=== PATIENT | male | born 1930 | race Caucasian/White ===

== ENCOUNTER 2017-03-10 17:08 | Inpatient (IN) | payer MEDICARE ==
[~2017-03-10] VITALS: Ht 182.9 cm; Wt 72.3 kg
[~2017-03-10 17:08] MED LIST: AMIO200T PO; CALC0.25 PO; LEVO75TA3 PO; NIAC500T5 PO; SIMV20TA PO; SPIR50TA PO; WARF4TAB51 PO
[2017-03-10 17:18] VITALS: BP 94/51; PULSE 69; RESP 20; TEMP 98.3; O2SAT 86
[2017-03-10 17:20] VITALS: RESP 20; O2SAT 97
--- NOTE | 2017-03-10 18:02 | PD ---
HPI Chief Complaint: Fall Time Seen by Provider: 17:19 Travel History International Travel<30 days: No Contact w/Intl Traveler<30days: No Traveled to known affect area: No History of Present Illness HPI 86-year-old male that presents to the ED for evaluation of right hip pain. Patient apparently had a trip and fall over a chair at a barn in [place] where he was at a tour of the area and landed on his right hip. Per patient he denies hitting his head or lost consciousness. No other injuries reported. Patient was not able to get up on its own he has a lot of pain with range of motion of the right hip. Patient felt like he was going to stand up he was going to pass out from the pain. Denies any prior injuries. Takes Coumadin for atrial fib. No back pain or neck pain. No arm pain. No leg pain. Denies any other injuries. The patient his pain if she doesn't move is 4 out of 10 when he moves his 8 out of 10. He cannot put any weight or not even flex it without pain. No numbness, tilling, weakness. No other injuries reported. Last ate around noon. No prior injuries to this area. 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 ) Hypertension: Yes Tetanus Vaccination: > 5 Years Influenza Vaccination: No Past Surgical History Cardiac Surgery: Yes (PACEMAKER) Social History Alcohol Use: No Tobacco Use: No Substance Use: No Allergies-Medications (Allergen,Severity, Reaction): Coded Allergies: No Known Allergies (Unverified , 03/10/17) Reported Meds & Prescriptions Reported Meds & Active Scripts Active Reported Warfarin 2 Mg Tab 2 Mg PO DAILY@1600 Spironolactone 50 Mg Tab 50 Mg PO DAILY Simvastatin 20 Mg Tab 20 Mg PO HS Niacin 500 Mg Tab 500 Mg PO DAILY Levothyroxine (Levothyroxine Sodium) 75 Mcg Tab 75 Mcg PO DAILY Calcitriol 0.25 Mcg Cap 0.25 Mcg PO DAILY Amiodarone (Amiodarone HCl) 200 Mg Tab 100 Mg PO DAILY Review of Systems Except as stated in HPI: all other systems reviewed are Neg Physical Exam Narrative GENERAL: SKIN: Warm and dry. HEAD: Atraumatic. Normocephalic. EYES: Pupils equal and round. No scleral icterus. No injection or drainage. ENT: No nasal bleeding or discharge. Mucous membranes pink and moist. Tongue is midline. No uvula deviation. NECK: Trachea midline. No JVD. CARDIOVASCULAR: Regular rate and rhythm. No murmurs, S3, S4. RESPIRATORY: No accessory muscle use. Clear to auscultation. Breath sounds equal bilaterally. GASTROINTESTINAL: Abdomen soft, non-tender, nondistended. Hepatic and splenic margins not palpable. MUSCULOSKELETAL: Extremities without clubbing, cyanosis, or edema. No obvious deformities. Full range of motion of the upper and lower extremities bilaterally. Patient does have reproducible pain with range of motion of the right hip especially with flexion and extension. 2+ pulses bilaterally especially in the lower extremities. No knee, ankle, toe of foot pain or defomrity noted. Full ROM of the upper extremities. No bruising noted on the abdomen which is soft and nontender. No obvious bony deformity noted. No lumbar , thoracic, cervical spine tenderness to palpation. NEUROLOGICAL: Awake and alert. No obvious cranial nerve deficits. Motor grossly within normal limits. Five out of 5 muscle strength in the arms and legs. Normal speech. PSYCHIATRIC: Appropriate mood and affect; insight and judgment normal. Data Data Last Documented VS Vital Signs Date Time Temp Pulse Resp B/P (MAP) Pulse Ox O2 Delivery O2 Flow Rate FiO2 03/10/17 19:06 69 20 116/56 (76) 97 Nasal Cannula 3.00 03/10/17 17:18 98.3 Orders Orders Hip, Uni(Ap&Lat) W Ap Pelvis (03/10/17 17:22) Ice/Cold Pack (03/10/17 17:22) Complete Blood Count With Diff (03/10/17 17:37) Basic Metabolic Panel (Bmp) (03/10/17 17:37) Prothrombin Time / Inr (Pt) (03/10/17 17:37) Act Partial Throm Time (Ptt) (03/10/17 17:37) Ct Hip W/O Contrast (03/10/17 ) ^ Lab Follow Up (03/10/17 20:34) Fresh Frozen Plasma (Ffp) (03/10/17 20:34) Type And Screen (03/10/17 20:34) Admit Order (Ed Use Only) (03/10/17 20:36) Labs Laboratory Tests Test 03/10/17 18:20 White Blood Count 11.6 TH/MM3 Red Blood Count 3.22 MIL/MM3 Hemoglobin 10.7 GM/DL Hematocrit 32.1 % Mean Corpuscular Volume 99.7 FL Mean Corpuscular Hemoglobin 33.3 PG Mean Corpuscular Hemoglobin Concent 33.4 % Red Cell Distribution Width 15.6 % Platelet Count 202 TH/MM3 Mean Platelet Volume 8.4 FL Neutrophils (%) (Auto) 81.5 % Lymphocytes (%) (Auto) 4.9 % Monocytes (%) (Auto) 12.8 % Eosinophils (%) (Auto) 0.6 % Basophils (%) (Auto) 0.2 % Neutrophils # (Auto) 9.5 TH/MM3 Lymphocytes # (Auto) 0.6 TH/MM3 Monocytes # (Auto) 1.5 TH/MM3 Eosinophils # (Auto) 0.1 TH/MM3 Basophils # (Auto) 0.0 TH/MM3 CBC Comment DIFF FINAL Differential Comment Prothrombin Time 42.8 SEC Prothromb Time International Ratio 3.7 RATIO Activated Partial Thromboplast Time 37.3 SEC Blood Urea Nitrogen 34 MG/DL Creatinine 1.84 MG/DL Random Glucose 143 MG/DL Calcium Level 8.6 MG/DL Sodium Level 139 MEQ/L Potassium Level 4.9 MEQ/L Chloride Level 101 MEQ/L Carbon Dioxide Level 33.4 MEQ/L Anion Gap 5 MEQ/L Estimat Glomerular Filtration Rate 35 ML/MIN MDM Medical Decision Making Medical Screen Exam Complete: Yes Emergency Medical Condition: Yes Medical Record Reviewed: Yes Interpretation(s) Last Impressions Hip and Pelvis X-Ray 03/10/17 1722 Signed Impressions: Service Date/Time: Friday, March 10, 2017 17:42 - CONCLUSION: Negative for acute fracture, if one is suspected CT scan may be of benefit. Issa Burger MD FACR CT shows acetabulum fracture and hematoma. CBC & BMP Diagram 03/10/17 18:20 Calcium Level 8.6 Differential Diagnosis Hip fracture versus bruise versus contusion versus inability to ambulate versus trip and fall Narrative Course 86-year-old male that presents to the ED for evaluation of right hip injury. Patient was properly examined and was found to have signs and symptoms concerning for hip fracture. X-rays were ordered. Labs were ordered as per my attendings recommendations. X-ray showed no fracture. Patient still in a lot of pain with movement. concerned for hidden fracture. CT ordered and showed displaced and comminuted acetabulum fracture with hematoma displacing the bladder to the left. Labs shows elevated INR of 3.7. Case discussed with Dr Cadena who evaluated the patient with me and recommends Trauma and ortho surgeon consultations. Dr Grayson consulted who agrees to admit to his service. Wants FFP but no [facility]. Spoke with Dr Downing who agrees patient might need surgery. Wants 10 pounds of bucks traction and consult placed to Dr Jorgensen. This was discussed with family, patient, as well as my attending who agree with plan. patient was admitted. Diagnosis Primary Impression: Acetabulum fracture, right Qualified Codes: S32.411A - Displaced fracture of anterior wall of right acetabulum, initial encounter for closed fracture Additional Impressions: Anticoagulated on Coumadin Pelvic hematoma, male Admitting Information Admitting Physician Requests: Admit Andrew Moreno Mar 10, 2017 18:02
--- NOTE | 2017-03-10 18:05 | RADRPT ---
EXAM DATE/TIME: 03/10/2017 17:42 [facility] COMPARISON: No previous studies available for comparison. INDICATIONS : Patient fell this morning and complains of right hip pain. MEDICAL HISTORY : None. SURGICAL HISTORY : None. ENCOUNTER: Initial ACUITY: 1 day PAIN SCORE: 8/10 LOCATION: Right Hip FINDINGS: Degenerative changes are present about the right hip without fracture. Extensive vascular calcificat ions are noted. Old deformity is seen of the right superior and inferior pubic ramus suggests an old fracture. CONCLUSION: Negative for acute fracture, if one is suspected CT scan may be of benefit. Issa Burger MD FACR on March 10, 2017 at 18:03 Board Certified Radiologist. This report was verified electronically.
[2017-03-10 18:38] LABS: AUTOMATED NEUTROPHIL # 9.5 TH/MM3 (1.8-7.7); BASOPHIL % 0.2 % (0.0-2.0); EOSINOPHIL # 0.1 TH/MM3 (0-0.4); EOSINOPHIL % 0.6 % (0.0-4.0); HEMATOCRIT 32.1 % (39.0-51.0); HEMO FLAGS DIFF FINAL; LYMPH % 4.9 % (9.0-44.0); LYMPHOCYTE # 0.6 TH/MM3 (1.0-4.8); MEAN CELL VOLUME 99.7 FL (80.0-100.0); MEAN CORPUSCULAR HEMOGLOBIN 33.3 PG (27.0-34.0); MEAN CORPUSCULAR HGB CONC 33.4 % (32.0-36.0); MONO % 12.8 % (0.0-8.0); NEUT % 81.5 % (16.0-70.0); PLATELET COUNT 202 TH/MM3 (150-450); RED BLOOD COUNT 3.22 MIL/MM3 (4.50-5.90); RED CELL DISTRIBUTION WIDTH 15.6 % (11.6-17.2); WHITE BLOOD COUNT 11.6 TH/MM3 (4.0-11.0)
[2017-03-10 18:49] LABS: BICARBONATE 33.4 MEQ/L (21.0-32.0); POTASSIUM 4.9 MEQ/L (3.5-5.1)
[2017-03-10 18:53] LABS: APTT (PATIENT) 37.3 SEC (24.3-30.1); INTERNATIONAL NORMALIZED RATIO 3.7 RATIO; PROTHROMBIN TIME - PATIENT 42.8 SEC (9.8-11.6)
[2017-03-10 19:06] VITALS: BP 116/56; PULSE 69; RESP 20; O2SAT 97
--- NOTE | 2017-03-10 20:27 | RADRPT ---
EXAM DATE/TIME: 03/10/2017 19:29 [facility] COMPARISON: No previous studies available for comparison. INDICATIONS : Trauma, fall. Evaluate right hip fracture. RADIATION DOSE: 28.15 CTDIvol (mGy) MEDICAL HISTORY : None SURGICAL HISTORY : None. ENCOUNTER: Initial ACUITY: 1 day PAIN SCALE: 5/10 LOCATION: Right hip. TECHNIQUE: Volumetric scanning of the hip was performed. Using automated exposure control and adjustment of the mA and/or kV according to patient size, radiation dose was kept as low as reasonably achievable to o btain optimal diagnostic quality images. DICOM format image data is available electronically for rev iew and comparison. FINDINGS: There is evidence of an acute comminuted displaced right acetabular fracture within involvement of th e anterior and posterior columns. There is also involvement of the superior acetabulum. The right pr oximal femur is intact without fracture. There is also evidence of acute fractures involving the rig ht superior and inferior pubic rami. Hematoma is noted within the right pelvic sidewall and displace s the urinary bladder to the left. Uncomplicated colonic diverticulosis is noted. Bilateral inguina l hernias are noted containing only fat and fluid. Severe spinal stenoses are noted within the lower lumbar spine. The prostate is enlarged and contains central calcifications. There is a tiny umbili adalgisa hernia containing only fat. CONCLUSION: 1. Acute displaced comminuted right acetabular fracture involving the anterior and posterior columns and superior acetabulum. 2. Acute fractures involving the right superior and inferior pubic rami. 3. Hematoma along the right pelvic sidewall. 4. Severe multilevel spinal stenoses within the lumbar spine. 5. Bilateral inguinal and umbilical hernias containing only fat and some fluid. 6. Uncomplicated colonic diverticulosis. 7. Enlarged prostate with central calcifications. Jovan Castillo MD on March 10, 2017 at 20:08 Board Certified Radiologist. This report was verified electronically.
--- NOTE | 2017-03-10 20:54 | PD ---
Physical Exam Date Seen by Provider: Mar 10, 2017 Time Seen by Provider: 20:44 Narrative GENERAL: Well-developed well-nourished thin male in no acute distress no respiratory distress; GCS 15 SKIN: Warm and dry. HEAD: Normocephalic. Atraumatic. EYES: No scleral icterus. No injection or drainage. NECK: Supple, trachea midline. No JVD or lymphadenopathy. No midline tenderness to direct palpation along the cervical spine. CARDIOVASCULAR: Regular rate and rhythm without murmurs, gallops, or rubs. RESPIRATORY: Breath sounds equal bilaterally. No accessory muscle use. GASTROINTESTINAL: Abdomen soft, non-tender, nondistended. MUSCULOSKELETAL: No cyanosis, or edema. No shortening or external rotation of the right lower extremity however unable to maneuver right lower extremity at hip secondary to marked pain; pelvic rock deferred: Bilateral radial pulses 2++ = to palpation and dorsalis pedis pulses 1+ to palpation and confirmed with Doppler. BACK: Nontender without obvious deformity. No CVA tenderness. Data Data Last Documented VS Vital Signs Date Time Temp Pulse Resp B/P (MAP) Pulse Ox O2 Delivery O2 Flow Rate FiO2 03/10/17 19:06 69 20 116/56 (76) 97 Nasal Cannula 3.00 03/10/17 17:18 98.3 Orders Orders Hip, Uni(Ap&Lat) W Ap Pelvis (03/10/17 17:22) Ice/Cold Pack (03/10/17 17:22) Complete Blood Count With Diff (03/10/17 17:37) Basic Metabolic Panel (Bmp) (03/10/17 17:37) Prothrombin Time / Inr (Pt) (03/10/17 17:37) Act Partial Throm Time (Ptt) (03/10/17 17:37) Ct Hip W/O Contrast (03/10/17 ) ^ Lab Follow Up (03/10/17 20:34) Fresh Frozen Plasma (Ffp) (03/10/17 20:34) Type And Screen (03/10/17 20:34) Admit Order (Ed Use Only) (03/10/17 20:36) Labs Laboratory Tests Test 03/10/17 18:20 White Blood Count 11.6 TH/MM3 Red Blood Count 3.22 MIL/MM3 Hemoglobin 10.7 GM/DL Hematocrit 32.1 % Mean Corpuscular Volume 99.7 FL Mean Corpuscular Hemoglobin 33.3 PG Mean Corpuscular Hemoglobin Concent 33.4 % Red Cell Distribution Width 15.6 % Platelet Count 202 TH/MM3 Mean Platelet Volume 8.4 FL Neutrophils (%) (Auto) 81.5 % Lymphocytes (%) (Auto) 4.9 % Monocytes (%) (Auto) 12.8 % Eosinophils (%) (Auto) 0.6 % Basophils (%) (Auto) 0.2 % Neutrophils # (Auto) 9.5 TH/MM3 Lymphocytes # (Auto) 0.6 TH/MM3 Monocytes # (Auto) 1.5 TH/MM3 Eosinophils # (Auto) 0.1 TH/MM3 Basophils # (Auto) 0.0 TH/MM3 CBC Comment DIFF FINAL Differential Comment Prothrombin Time 42.8 SEC Prothromb Time International Ratio 3.7 RATIO Activated Partial Thromboplast Time 37.3 SEC Blood Urea Nitrogen 34 MG/DL Creatinine 1.84 MG/DL Random Glucose 143 MG/DL Calcium Level 8.6 MG/DL Sodium Level 139 MEQ/L Potassium Level 4.9 MEQ/L Chloride Level 101 MEQ/L Carbon Dioxide Level 33.4 MEQ/L Anion Gap 5 MEQ/L Estimat Glomerular Filtration Rate 35 ML/MIN [facility] Medical Record Reviewed: Yes Supervised Visit with REMY: Yes (I have seen and examined the patient myself and am in agreement with the advanced physician provider assessment and exam and plan of treatment. Patient has had plain imaging that does not reveal obvious bony abnormalities however CT imaging does confirm a comminuted acetabular fracture as well as right superior ramus and inferior ramus fracture with adjacent hematoma causing some pressure on to the bladder. FFP has been ordered. Patient's case discussed with on-call trauma surgeon who recommends only administration of FFP no vitamin K or K [facility]ra at this time per discussion w/ Dr Hassan and Gary Moreno PA-C. Call was also placed to division toll wire chief orthopedist) Interpretation(s) INR: 3.7 CT pelvis: CONCLUSION: 1. Acute displaced comminuted right acetabular fracture involving the anterior and posterior columns and superior acetabulum. 2. Acute fractures involving the right superior and inferior pubic rami. 3. Hematoma along the right pelvic sidewall. 4. Severe multilevel spinal stenoses within the lumbar spine. 5. Bilateral inguinal and umbilical hernias containing only fat and some fluid. 6. Uncomplicated colonic diverticulosis. 7. Enlarged prostate with central calcifications. Jovan Castillo MD on March 10, 2017 at 20:08 Last Impressions Hip and Pelvis X-Ray 03/10/17 1722 Signed Impressions: Service Date/Time: Friday, March 10, 2017 17:42 - CONCLUSION: Negative for acute fracture, if one is suspected CT scan may be of benefit. Issa Burger MD FACR Differential Diagnosis Contusion hip fracture pelvic fracture coagulopathy Narrative Course Please refer to my supervised note with a REMY FFP ordered stat cxr, ekg ordered Dr Grayson in to see patient; aware FFP not yet administered as BBK assessing status --no prior BBK hx here CT thorax w/ iv contrast and CT abd/pelvis with IV contrast ordered @ 23:05 FFP at bedside to be administered; stat H/H ordered @ 23:30Trauma surgeon updated regarding H/H and CT imaging results Physician Communication Physician Communication Dr Grayson and Dr Downing contacted by Gary Moreno PA-C; discussed with Dr Grayson at the bedside Diagnosis Primary Impression: Acetabulum fracture, right Qualified Codes: S32.411A - Displaced fracture of anterior wall of right acetabulum, initial encounter for closed fracture Additional Impressions: Pelvic hematoma, male Anticoagulated on Coumadin Admitting Information Admitting Physician Requests: Admit Mamie Cadena MD Mar 10, 2017 20:54
[2017-03-10 21:06] VITALS: BP 101/58; PULSE 69; RESP 16; O2SAT 97
[2017-03-10] MEDS ORDERED: Post-op Orders (for Pharmacy) MISC XX ONE (22:00)
[2017-03-10] MEDS ORDERED: ONDANSETRON HCL 4 MG/2 ML VIAL IV PRN (22:00)
[2017-03-10] MEDS ORDERED: SODIUM CHLORIDE 0.9% FLUSH 10 ML FLUSH IV FLUSH PRN (22:00)
[2017-03-10] MEDS ORDERED: SODIUM CHLOR 0.9% 1000 ML INJ 1,000 ML IV SCH (22:00)
[2017-03-10] MEDS ORDERED: MORPHINE SULFATE 4 MG/ML INJ IV PUSH PRN (22:00)
[2017-03-10] MEDS ORDERED: NALOXONE HCL 0.4 MG/ML AMP IV PUSH PRN (22:00)
[2017-03-10] MEDS ORDERED: oxyCODONE/ACETAMINOPHEN 5 MG/325 MG TAB PO PRN (22:00)
[2017-03-10] MEDS ORDERED: PILL SPLITTER OTHER PRN (22:15)
[2017-03-10] MEDS ORDERED: IODIXANOL 320 MG/ML 10 ML VIAL (for Rad CT) IV ONE (22:36)
[2017-03-10 22:38] LABS: HEMATOCRIT 26.5 % (39.0-51.0); REVIEW FLAG FINAL
--- NOTE | 2017-03-10 22:49 | RADRPT ---
EXAM DATE/TIME: 03/10/2017 21:54 [facility] COMPARISON: CHEST SINGLE AP, April 27, 2016, 18:28. INDICATIONS : Short of breath. MEDICAL HISTORY : None. SURGICAL HISTORY : Pacemaker. ENCOUNTER: Subsequent ACUITY: 1 day PAIN SCORE: 0/10 LOCATION: Bilateral chest FINDINGS: There is elevation of the left hemidiaphragm which is stable. The heart is stable. Left subclavian d ual lead pacemaker has its tips in the right atrium and right ventricle. The pulmonary vascular jaclyn patricia is normal. The lungs are clear. CONCLUSION: 1. Elevation of the left hemidiaphragm. 2. No pulmonary vascular congestion or focal pulmonary infiltrate. Jovan Castillo MD on March 10, 2017 at 22:40 Board Certified Radiologist. This report was verified electronically.
--- NOTE | 2017-03-10 23:00 | PD.CONS ---
HPI Service Critical Care Medicine Consult Requested By Dr. Grayson Reason for Consult Critical care management Primary Care Physician Axel Patton MD History of Present Illness 86 yo WM with PMH of atrial fibrillation on chronic anticoagulation with warfarin, hyperlipidemia, hypothyroidism, pacemaker, chronic kidney disease stage III, COPD who presents to [facility] emergency department complaining of R hip pain after a fall. He states that he was taking a tour of a horse farm in [place], [place] and he stood up and tripped over his chair and landed on the concrete floor of a barn. He denies head trauma or loss of consciousness. CT of the right hip demonstrated comminuted displaced right anterior and posterior acetabular fracture. There were also fractures of the right superior and inferior pubic rami. A hematoma was present along the right pelvic sidewall displacing the bladder. His INR is 3.7. Patient states that he had his INR checked on Thursday 03/08 and it was above 3. He states that he completed a course of penicillin about 2-1/2 weeks ago after he experienced a URI with COPD exacerbation and that this affected his INR. He took a reduced dose of warfarin on Wednesday. Two units of FFP have been ordered and the first unit is infusing currently. Plt count is 202. Hgb is 8.7 (prior was 10.7 4 hours ago). He is in sinus rhythm in 60s with BP 101/58. He is alert and interactive. States hip pain only occurs with movement and that his pain is currently adequately controlled. Denies CP, SOB, Headache, back pain, neck pain. Remainder of ROS negative. He is being admitted to trauma service, Dr. Grayson who has consulted [facility]. ED physician has discussed case with orthopaedics who recommended [place] traction which has been ordered. Review of Systems Musculoskeletal: COMPLAINS OF: Joint pain Past Family Social History Allergies: Coded Allergies: digoxin (Verified Allergy, Unknown, Drowsiness, 03/11/17) Past Medical History Atrial fibrillation on chronic anti-coagulation with warfarin Hyperlipidemia COPD Hard of hearing Hypothyroidism Chronic kidney disease stage III Past Surgical History Biotronik Pacemaker placement New Right atrial lead was placed by Dr. Kelley 04/27/16 Reported Medications Warfarin 2 mg by mouth daily Amiodarone 100 g by mouth daily Simvastatin 20 mill grams by mouth daily at bedtime Niacin 500 mg by mouth daily Spironolactone 50 mg by mouth daily Levothyroxin 7500 mg by mouth daily Calcitriol 0.25 mill grams by mouth daily Family History Mother had diabetes Father at age 94 ruptured aortic aneurysm Social History He is a lifetime nonsmoker Denies alcohol or illicit drug use Retired Physical Exam Vital Signs Vital Signs Date Time Temp Pulse Resp B/P (MAP) Pulse Ox O2 Delivery O2 Flow Rate FiO2 03/10/17 21:06 69 16 101/58 (72) 97 Nasal Cannula 2.00 03/10/17 19:06 69 20 116/56 (76) 97 Nasal Cannula 3.00 03/10/17 17:20 20 97 Nasal Cannula 3.00 03/10/17 17:18 98.3 69 20 94/51 (65) 86 Physical Exam GENERAL: Pleasant, alert, talkative man who is laying in ED [facility]. SKIN: Warm and dry, well perfused. HEAD: Atraumatic. Normocephalic. EYES: Pupils equal and round, 6 mm and sluggishly reactive. No scleral icterus. No injection or drainage. ENT: No nasal bleeding or discharge. Mucous membranes pink and moist. NECK: Trachea midline. No JVD. No midline tenderness, step-off, deformity CARDIOVASCULAR: Regular rate and rhythm, sinus rhythm on monitor with rate in the 60s. No murmurs rubs or gallops. RESPIRATORY: Breathing comfortably with No accessory muscle use. Scant bilateral extremities. GASTROINTESTINAL: Abdomen soft, non-tender, nondistended. Bowel sounds present. MUSCULOSKELETAL: Extremities without clubbing, cyanosis, or edema. Right leg held in external rotation. Mild 1+ R ankle edema. Moves toes bilaterally. NEUROLOGICAL: Awake and alert. No obvious cranial nerve deficits. Normal speech. Oriented to person, year, circumstance. Moving upper extremities spontaneously. Moves toes bilaterally. Laboratory Laboratory Tests Test 03/10/17 18:20 03/10/17 22:30 White Blood Count 11.6 Red Blood Count 3.22 Hemoglobin 10.7 8.7 Hematocrit 32.1 26.5 Mean Corpuscular Volume 99.7 Mean Corpuscular Hemoglobin 33.3 Mean Corpuscular Hemoglobin Concent 33.4 Red Cell Distribution Width 15.6 Platelet Count 202 Mean Platelet Volume 8.4 Neutrophils (%) (Auto) 81.5 Lymphocytes (%) (Auto) 4.9 Monocytes (%) (Auto) 12.8 Eosinophils (%) (Auto) 0.6 Basophils (%) (Auto) 0.2 Neutrophils # (Auto) 9.5 Lymphocytes # (Auto) 0.6 Monocytes # (Auto) 1.5 Eosinophils # (Auto) 0.1 Basophils # (Auto) 0.0 CBC Comment DIFF FINAL Differential Comment Prothrombin Time 42.8 Prothromb Time International Ratio 3.7 Activated Partial Thromboplast Time 37.3 Blood Urea Nitrogen 34 Creatinine 1.84 Random Glucose 143 Calcium Level 8.6 Sodium Level 139 Potassium Level 4.9 Chloride Level 101 Carbon Dioxide Level 33.4 Anion Gap 5 Estimat Glomerular Filtration Rate 35 Result Diagram: 03/10/17222903/10/17 1820 Assessment and Plan Problem List: (1) Acetabulum fracture, right ICD Code: S32.401A - Unspecified fracture of right acetabulum, initial encounter for closed fracture Status: Acute (2) Pelvic hematoma, male ICD Code: N50.1 - Vascular disorders of male genital organs Status: Acute (3) Anticoagulated on Coumadin ICD Code: Z51.81 - Encounter for therapeutic drug level monitoring; Z79.01 - penitentiary (current) use of anticoagulants Status: Chronic (4) Hard of hearing ICD Code: H91.90 - Unspecified hearing loss, unspecified ear (5) Hypothyroid ICD Code: E03.9 - Hypothyroidism, unspecified Status: Chronic (6) CKD (chronic kidney disease) stage 3, GFR 30-59 ml/min ICD Code: N18.3 - Chronic kidney disease, stage 3 (moderate) Status: Chronic (7) Pacemaker ICD Code: Z95.0 - Presence of cardiac pacemaker (8) Afib ICD Code: I48.91 - Unspecified atrial fibrillation Status: Resolved (9) Fall ICD Code: W19.XXXA - Unspecified fall, initial encounter Status: Acute Assessment and Plan NEURO: Pain secondary to acute fracture Hard of hearing Scoliosis thoracic spine Fall Noted carotid ultrasound has been ordered per trauma surgery. Will follow-up. Percocet 5/325 one by mouth every 4 hours when necessary pain Morphine 2 mg IV every 3 hours when necessary breakthrough pain ORTHO: Comminuted right acetabular fracture Right superior and inferior pubic ramus fracture Ten pounds [place] traction per orthopedics recommendation. Orthopedic surgery consulted. Dr. Sherman to see in am. RESP: Reported history of COPD Acute nondisplaced right seventh rib fracture Elevated left hemidiaphragm Lifetime nonsmoker. Appears may be chronic CO2 retainer. Albuterol every 2 hours as needed for wheezing CT chest - acute nondisplaced fracture anterolateral aspect right seventh rib. Cardiomegaly and coronary calcifications present. Bilateral fibrotic pulmonary scarring. CV: Atrial fibrillation. He is currently in sinus rhythm. Biotronik Pacemaker in situ Hyperlipidemia On chronic anticoagulation with warfarin. We'll hold warfarin as per below. Continue pravastatin 40 mg by mouth daily at bedtime, niacin 500 mg by mouth daily. Continue amiodarone 100 mg by mouth daily. Continue spironolactone 50 mg by mouth daily Follow-up 2-D echo. GI: Nothing by mouth CT abdomen and pelvis - no solid organ injury. Right iliac is muscle hematoma extending to right pelvic sidewall. Bilateral renal cysts. 1.3 x 1.8 cm right adrenal nodule, indeterminate. Umbilical and bilateral inguinal hernias. FEN/RENAL: Chronic kidney disease stage III Enlarged prostate Bilateral renal cysts 1.3 x 1.8 cm right adrenal nodule. Insert Fischer. Monitor intake and output. Monitor electrolyte. Replace electrolytes as clinically indicated. Check mag and phos. Continue calcitriol 0.25 mcg po daily. ID: Monitor for signs and symptoms of infection HEME: Warfarin-induced coagulopathy Patient is chronically in a coagulated with warfarin for A fib with target INR 2 -3. . Dose was reduced to 1 mg on Wednesday due to elevated outpatient INR. We' ll hold warfarin. ORdere previously placed for 2 units FFP and repeat INR is ordered. Will give ffp as needed to target pre-op INR </= 1.5. Normal platelet count ENDO: Hypothyroidism Continue levothyroxine 75 mg by mouth daily Mild hyperglycemia may be secondary to stress. Will monitor and order low-dose insulin sliding scale if indicated PROPH: Will use SCD for DVT prophylaxis. Is currently anticoagulated with INR greater than 3 which will provide DVT prophylaxis currently. Protonix 40 mg by mouth daily for stress ulcer prophylaxis. ACCESS: Peripheral IV providing adequate access at this time Level 2 consult Problem Qualifiers (1) Acetabulum fracture, right: Qualified Codes: S32.411A - Displaced fracture of anterior wall of right acetabulum, initial encounter for closed fracture (2) Hard of hearing: Qualified Codes: H91.90 - Unspecified hearing loss, unspecified ear (3) Hypothyroid: Qualified Codes: E03.9 - Hypothyroidism, unspecified (4) Afib: Qualified Codes: I48.0 - Paroxysmal atrial fibrillation (5) Fall: Qualified Codes: W19.XXXA - Unspecified fall, initial encounter Evette Black MD Mar 10, 2017 23:00
--- NOTE | 2017-03-10 23:03 | MH ---
cc: [facility] DATE OF ADMISSION 03/10/[address] Grayson, trauma surgery and vascular surgery. REASON FOR ADMISSION Right comminuted acetabular fracture, intrapelvic retroperitoneal hematoma with displacement of the bladder, pubic rami fractures, a-fib, hypocoagulable iatrogenic state, intrapelvic bleed. HISTORY OF PRESENT DISEASE This 86-year-old gentleman was in [place], apparently in a barn and fell over a chair on his right hip. There was a concrete floor in the barn. The patient did not lose consciousness. Denies hitting head and this was witnessed. The patient could not get up and he was put by family in a car, driven down here because he lives in [place]. He came to emergency room around 5:00 p.m. this evening. The patient had pain 8/10. Cannot flex hip, cannot extend it, cannot rotate it. The patient was worked up, was found to have comminuted fracture of the right acetabulum, intraperitoneal hematoma, I was asked to admit the patient. PAST MEDICAL HISTORY Past medical history is that of coronary artery disease, chronic a-fib, ischemic cardiomyopathy with pacemaker placement and replacement, COPD, hypertension, hypothyroidism. PAST SURGICAL HISTORY Is only of pacemaker placement. The patient does not drink. Does not smoke. 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 MEDICATIONS Include: 1. Coumadin. 2. Amiodarone. 3. Synthroid. 4. Simvastatin. 5. Spironolactone. PHYSICAL EXAMINATION GENERAL: Physical examination reveals pleasant 86-year-old male, awake, alert, oriented x3, answering questions completely appropriately, all the way with it. HEENT: Normocephalic. No trauma to the head. Pupils equally reactive. Extraocular muscles are intact. No hemotympanum. No Grace sign or raccoon's eyes. NECK: Neck is supple. Bilateral carotid pulses and faint bilateral carotid bruits. CHEST: Bilateral breath sounds decreased over both lung pillai consistent with advanced degree of COPD. The patient has obvious signs of pulmonary cachexia with loss of chest wall musculature. HEART: Irregular rhythm. The patient is in controlled a-fib about 80 beats per minute. On arrival, initial pressure was 90 mmHg systolic but this apparently improved and as I'm seeing the patient he is normotensive. ABDOMEN: Soft. No rebound or guarding. No masses. The patient is fairly thin. PELVIS: The pelvis appears to be stable. The patient is tender over the pubis and is also quite tender over the right hip area. EXTREMITIES: The patient has palpable femoral pulses, palpable popliteal, dorsalis pedis and posterior tibial pulses bilateral. Capillary refill is normal. Normal brachial, ulnar pulses. No signs of acute vascular deficit. NEUROLOGIC: Exam is normal. CII-XII are normal. Pacheco coma scale is 15. Motorically the patient is fully intact with limitations of the right leg where any movement of the leg causes significant amount of pain. IMPRESSION/RECOMMENDATIONS Patient with comminuted right acetabular fracture involving the anterior and posterior column of the acetabulum and pubic fracture on the right. He has a moderate size intrapelvic retroperitoneal hematoma which is related obviously to the bleeding from the either obturator branch of the external iliac artery or the external iliac branch of the obturator artery, or both which meet back behind the acetabulum. This should be contained bleeding. I have discussed this with the PA and ordered 2 units of FFP at 8:30. As I am dictating this H&P at 10 o'clock the patient still has not received FFP but appears to be stable. The patient will be admitted to ICU. Orthopedics has been consulted. The patient should have a traction placed on this and I guess that is coming. The patient will be observed in the ICU considering that the complications of this could be significant, ranging from continuous intraperitoneal bleeding, recurrent intraperitoneal bleeding or other injuries. In addition, the patient will get an EKG, cardiac echo, carotid ultrasound because I really do not know whether he went syncopal or not, just because he states he did not I am not sure and in addition the patient needs complete abdomen CAT scan because I can see only lower pelvis on this film. Other than that further ICU care per clinical indices. Critical care time 40 minutes. Chelly PATEL /10:25 PM /10:35 PM DUSTIN
[2017-03-10 23:14] VITALS: PULSE 69; RESP 16; TEMP 97.7; O2SAT 99
--- NOTE | 2017-03-10 23:14 | RADRPT ---
EXAM DATE/TIME: 03/10/2017 22:14 [facility] COMPARISON: No previous studies available for comparison. INDICATIONS : Trauma. Fall. Evaluate for intraperitoneal hemorrhage. IV CONTRAST: 75 cc Visipaque (iodixanol) IV ; Cumulative dose for multiple exams. ORAL CONTRAST: No oral contrast ingested. RADIATION DOSE: 9.41 CTDIvol (mGy) ; Combined studies - Thorax/Abdomen/Pelvis MEDICAL HISTORY : Cardiovascular disease. Hypertension. Chronic obstructive pulmonary disease. SURGICAL HISTORY : Pacemaker. ENCOUNTER: Initial ACUITY: 1 day PAIN SCALE: 5/10 LOCATION: Right pelvis abdomen TECHNIQUE: Volumetric scanning of the abdomen and pelvis was performed. Using automated exposure control and ad justment of the mA and/or kV according to patient size, radiation dose was kept as low as reasonably achievable to obtain optimal diagnostic quality images. DICOM format image data is available electro nically for review and comparison. FINDINGS: There is no evidence of trauma to the liver or spleen. A tiny left pleural effusion is noted. The branch creas is unremarkable. There is a large hematoma involving the right iliacus musculature as well as h ematoma involving the right pelvic sidewall musculature related to the extensive comminuted right dulce tabular and pubic rami fractures. There is displacement of the urinary bladder to the left. The prost ate is prominent and contains central calcification. Uncomplicated colonic diverticulosis is noted. B ilateral inguinal hernias containing only fat and some fluid is noted. Umbilical hernia containing on ly fat is noted. Multilevel severe spinal stenosis is noted within the lumbar spine. Multiple bilater al renal cysts are noted. No renal trauma is noted. There is a 1.3 x 1.8 cm right adrenal nodule whic h is indeterminate. The abdominal aorta is calcified but is not aneurysmally dilated. The inferior ve na cava is normal. Cardiomegaly is noted. CONCLUSION: No evidence of trauma to the intra-abdominal organs. Right iliacus musculature hematoma which extends into the right pelvic sidewall and displaces the ureter bladder to the left. Enlarged prostate with central calcifications. Tiny left pleural effusion. Umbilical and bilateral in guinal hernias containing no bowel loops. Bilateral renal cysts. 1.3 x 1.8 cm right adrenal nodule wh ich is indeterminate. Acute displaced comminuted right acetabular fracture as well as right superior and inferior to rami fractures. Severe multilevel spinal stenoses within lumbar spine. Degenerative c hanges and scoliosis of the lumbar spine. Cardiomegaly. Jovan Castillo MD on March 10, 2017 at 23:01 Board Certified Radiologist. This report was verified electronically.
--- NOTE | 2017-03-10 23:20 | RADRPT ---
EXAM DATE/TIME: 03/10/2017 22:14 [facility] COMPARISON: No previous studies available for comparison. INDICATIONS : Trauma. Fall. Right sided rib pain. IV CONTRAST: 75 cc Visipaque (iodixanol) IV ; Cumulative dose for multiple exams. RADIATION DOSE: 9.41 CTDIvol (mGy) ; Combined studies - Thorax/Abdomen/Pelvis MEDICAL HISTORY : Cerebrovascular disease. Hypertension. Chronic obstructive pulmonary disease. SURGICAL HISTORY : Pacemaker. ENCOUNTER: Initial ACUITY: 1 day PAIN SCALE: 5/10 LOCATION: Right chest TECHNIQUE: Volumetric scanning of the chest was performed. Using automated exposure control and adjustment of t he mA and/or kV according to patient size, radiation dose was kept as low as reasonably achievable to obtain optimal diagnostic quality images. DICOM format image data is available electronically for review and comparison. Follow-up recommendations for detected pulmonary nodules are based at a minimum on nodule size and pa tient risk factors according to Fleischner Society Guidelines. FINDINGS: LUNGS: There is no consolidation or pneumothorax. No concerning pulmonary nodule is visualized. Scattered f ibrotic scarring is noted bilaterally. PLEURA: Tiny pleural effusion is noted on the left. MEDIASTINUM: The heart and great vessels demonstrate no acute abnormality. There is no mediastinal or hilar lymph adenopathy. Cardiomegaly is noted. Coronary artery calcifications are noted. AXILLAE: Within normal limits. No lymphadenopathy. SKELETAL: There is an acute nondisplaced fracture involving the anterolateral aspect of the right seventh rib. Degenerative changes and scoliosis of the thoracic spine are noted. MISCELLANEOUS: The visualized upper abdominal organs demonstrate no acute abnormality. There is elevation of the lef t hemidiaphragm. CONCLUSION: Acute nondisplaced fracture involving the anterolateral aspect of the right seventh rib. Cardiomegaly and coronary artery calcifications. Scattered fibrotic scarring bilaterally. Tiny left pleural effus ion. Degenerative changes and scoliosis of the thoracic spine. Elevation of the left hemidiaphragm. Jovan Castillo MD on March 10, 2017 at 23:13 Board Certified Radiologist. This report was verified electronically.
[2017-03-11] VITALS (19 sets, daily range): BP systolic 103–156; BP diastolic 52–71; PULSE 80–95; RESP 16–28; TEMP 97–98; O2SAT 95–99
--- NOTE | 2017-03-11 00:51 | RADRPT ---
EXAM DATE/TIME: 03/10/2017 23:35 [facility] COMPARISON: No previous studies available for comparison. INDICATIONS : Syncope. MEDICAL HISTORY : Hypertension. COPD. Cardiac disorder. SURGICAL HISTORY : Pacemaker. ENCOUNTER: Initial ACUITY: 1 day PAIN SCORE: 0/10 LOCATION: Bilateral neck PEAK SYSTOLIC VELOCITIES (cm/sec): ICA/CCA RATIO: Right: 1.0 Left: 1.1 ICA: Right: 101 Left: 94 CCA: Right: 102 Left: 84 ECA: Right: 95 Left: 57 VERTEBRAL: Right: 47 antegrade Left: 61 antegrade Elevated flow velocities and ICA/CCA ratios have been found to correlate with increased degrees of vessel stenosis, calculated as percentage of diameter relative to a normal segment of distal ICA/CCA FINDINGS: RIGHT CAROTID: Scattered calcified plaque throughout the common carotid artery and proximal ICA with less than 50% s tenosis by Constantino scale analysis.. The waveforms are within normal limits. LEFT CAROTID: Scattered calcified plaque throughout the common carotid artery and proximal ICA with less than 50% s tenosis by Constantino scale analysis.. The waveforms are within normal limits. VERTEBRAL ARTERIES: Antegrade flow is seen in both vertebral arteries. MISCELLANEOUS: None. CONCLUSION: 1. Diffuse calcified plaque with less than 50% stenosis involving each ICA. 2. Antegrade flow involving both vertebral arteries. Bandar Santana Jr., MD on March 11, 2017 at 0:46 Board Certified Radiologist. This report was verified electronically.
[2017-03-11] MEDS ORDERED: RESP: ALBUTEROL 2.5 MG/3 ML NEB (PRN) NEB (01:00)
[2017-03-11] MEDS: PANTOPRAZOLE SOD 40 MG DELAYED RELEASE TAB PO SCH ×2 (01:49→21:40)
[2017-03-11 02:16] LABS: MAGNESIUM 2.1 MG/DL (1.5-2.5)
[2017-03-11 03:34] LABS: HEMATOCRIT 24.4 % (39.0-51.0); REVIEW FLAG FINAL
[2017-03-11 03:47] LABS: INTERNATIONAL NORMALIZED RATIO 1.7 RATIO; PROTHROMBIN TIME - PATIENT 18.9 SEC (9.8-11.6)
[2017-03-11] MEDS ORDERED: FURO1TAB60 PO (04:41)
[2017-03-11] MEDS ORDERED: SODIUM CHLOR 0.9% 250 ML INJ 250 ML IV ONE ×2 (05:00→06:00)
[2017-03-11] MEDS: LEVOTHYROXINE SODIUM 75 MCG TAB PO SCH (05:26)
[2017-03-11 05:42] LABS: AUTOMATED NEUTROPHIL # 5.8 TH/MM3 (1.8-7.7); BASOPHIL % 0.4 % (0.0-2.0); EOSINOPHIL # 0.1 TH/MM3 (0-0.4); EOSINOPHIL % 0.8 % (0.0-4.0); HEMATOCRIT 23.6 % (39.0-51.0); HEMO FLAGS DIFF FINAL; LYMPH % 11.2 % (9.0-44.0); LYMPHOCYTE # 0.9 TH/MM3 (1.0-4.8); MEAN CELL VOLUME 96.4 FL (80.0-100.0); MEAN CORPUSCULAR HEMOGLOBIN 32.4 PG (27.0-34.0); MEAN CORPUSCULAR HGB CONC 33.6 % (32.0-36.0); MONO % 18.3 % (0.0-8.0); NEUT % 69.3 % (16.0-70.0); PLATELET COUNT 152 TH/MM3 (150-450); RED BLOOD COUNT 2.44 MIL/MM3 (4.50-5.90); RED CELL DISTRIBUTION WIDTH 15.6 % (11.6-17.2); WHITE BLOOD COUNT 8.3 TH/MM3 (4.0-11.0)
[2017-03-11] MEDS ORDERED: FUROSEMIDE 20 MG/2 ML VIAL IV PUSH ONE (06:00)
[2017-03-11 06:07] LABS: ALT (GPT) 28 U/L (12-78); ANION GAP 5 MEQ/L (5-15); AST (GOT) 30 U/L (15-37); BLOOD UREA NITROGEN 35 MG/DL (7-18); CHLORIDE 101 MEQ/L (98-107); GLOMERULAR FILTRATION RATE 35 ML/MIN (>89); POTASSIUM 4.5 MEQ/L (3.5-5.1); SODIUM (NA) 140 MEQ/L (136-145)
[2017-03-11 06:10] LABS: ALKALINE PHOSPHATASE 80 U/L (45-117); TOTAL BILIRUBIN ADULT 1.2 MG/DL (0.2-1.0)
[2017-03-11] MEDS ORDERED: FAMOTIDINE 20 MG TAB PO SCH (09:00)
[2017-03-11] MEDS: NIACIN 500 MG EXTENDED RELEASE TAB PO SCH ×2 (09:00→09:40)
[2017-03-11] MEDS: SODIUM CHLORIDE 0.9% FLUSH 10 ML FLUSH IV FLUSH SCH ×2 (09:15→21:00)
[2017-03-11] MEDS: SPIRONOLACTONE 50 MG TAB PO SCH (09:39)
[2017-03-11] MEDS: CALCITRIOL 0.25 MCG CAP PO SCH (09:40)
[2017-03-11] MEDS: AMIODARONE 200 MG TAB PO SCH (09:40)
[2017-03-11] MEDS: DOCUSATE SODIUM 50 MG/SENNA 8.6 MG TAB PO SCH ×2 (09:40→21:39)
--- NOTE | 2017-03-11 09:55 | HHI.CCPN ---
Subjective Remarks/Hospital Course 86 yo WM with PMH of atrial fibrillation on chronic anticoagulation with warfarin, hyperlipidemia, hypothyroidism, pacemaker, chronic kidney disease stage III, COPD who presents to [facility] emergency department complaining of R hip pain after a fall. He states that he was taking a tour of a horse farm in [place], [place] and he stood up and tripped over his chair and landed on the concrete floor of a barn. He denies head trauma or loss of consciousness. CT of the right hip demonstrated comminuted displaced right anterior and posterior acetabular fracture. There were also fractures of the right superior and inferior pubic rami. A hematoma was present along the right pelvic sidewall displacing the bladder. His INR is 3.7. Patient states that he had his INR checked on Thursday 03/08 and it was above 3. He states that he completed a course of penicillin about 2-1/2 weeks ago after he experienced a URI with COPD exacerbation and that this affected his INR. He took a reduced dose of warfarin on Wednesday. Two units of FFP have been ordered and the first unit is infusing currently. Plt count is 202. Hgb is 8.7 (prior was 10.7 4 hours ago). He is in sinus rhythm in 60s with BP 101/58. He is alert and interactive. States hip pain only occurs with movement and that his pain is currently adequately controlled. Denies CP, SOB, Headache, back pain, neck pain. Remainder of ROS negative. He is being admitted to trauma service, Dr. Grayson who has consulted [facility] [place]. ED physician has discussed case with orthopaedics who recommended Procious traction which has been ordered. 03/11: Lying in bed, denies pain. No OR - conservative management per ortho. Getting blood transfusion and FFP hemoglobin 7.9 today INR 1.7. Objective Vital Signs Date Time Temp Pulse Resp B/P (MAP) Pulse Ox O2 Delivery O2 Flow Rate FiO2 03/11/17 09:00 99 Nasal Cannula 3.00 03/11/17 08:35 97.6 88 27 114/64 Intake and Output 03/11/17 03/11/17 03/12/17 08:00 16:00 00:00 Intake Total 1182 ml Output Total 250 ml Balance 932 ml Result Diagram: 03/11/17 0532 03/11/17 0532 Objective Remarks GENERAL: Pleasant, alert man who is laying in bed. SKIN: Warm and dry, well perfused. HEAD: Atraumatic. Normocephalic. EYES: Pupils equal and round, 6 mm and sluggishly reactive. No scleral icterus. No injection or drainage. ENT: No nasal bleeding or discharge. Mucous membranes pink and moist. NECK: Trachea midline. No JVD. No midline tenderness, step-off, deformity CARDIOVASCULAR: Regular rate and rhythm, sinus rhythm on monitor with rate in the 60s. No murmurs rubs or gallops. RESPIRATORY: Breathing comfortably with No accessory muscle use. Scant bilateral extremities. GASTROINTESTINAL: Abdomen soft, non-tender, nondistended. Bowel sounds present. MUSCULOSKELETAL: Right leg held in external rotation. Mild 1+ R ankle edema. Moves toes bilaterally. NEUROLOGICAL: Awake and alert. No obvious cranial nerve deficits. Normal speech. A/P Problem List: (1) Acetabulum fracture, right ICD Code: S32.401A - Unspecified fracture of right acetabulum, initial encounter for closed fracture Status: Acute (2) Pelvic hematoma, male ICD Code: N50.1 - Vascular disorders of male genital organs Status: Acute (3) Anticoagulated on Coumadin ICD Code: Z51.81 - Encounter for therapeutic drug level monitoring; Z79.01 - custodial (current) use of anticoagulants Status: Chronic (4) Hard of hearing ICD Code: H91.90 - Unspecified hearing loss, unspecified ear (5) Hypothyroid ICD Code: E03.9 - Hypothyroidism, unspecified Status: Chronic (6) CKD (chronic kidney disease) stage 3, GFR 30-59 ml/min ICD Code: N18.3 - Chronic kidney disease, stage 3 (moderate) Status: Chronic (7) Pacemaker ICD Code: Z95.0 - Presence of cardiac pacemaker (8) Afib ICD Code: I48.91 - Unspecified atrial fibrillation Status: Resolved (9) Fall ICD Code: W19.XXXA - Unspecified fall, initial encounter Assessment and Plan NEURO: Pain secondary to acute fracture Hard of hearing Scoliosis thoracic spine Fall Noted carotid ultrasound has been ordered per trauma surgery. no significant stenosis Percocet 5/325 one by mouth every 4 hours when necessary pain Morphine 2 mg IV every 3 hours when necessary breakthrough pain ORTHO: Comminuted right acetabular fracture Right superior and inferior pubic ramus fracture Ten pounds Procious traction per orthopedics recommendation. Orthopedic surgery Dr. Sherman -conservative management RESP: Reported history of COPD Acute nondisplaced right seventh rib fracture Elevated left hemidiaphragm Lifetime nonsmoker. Appears may be chronic CO2 retainer. Albuterol every 2 hours as needed for wheezing CT chest - acute nondisplaced fracture anterolateral aspect right seventh rib. Cardiomegaly and coronary calcifications present. Bilateral fibrotic pulmonary scarring. CV: Atrial fibrillation. He is currently in sinus rhythm. Biotronik Pacemaker in situ Hyperlipidemia On chronic anticoagulation with warfarin. We'll hold warfarin as per below. Continue pravastatin 40 mg by mouth daily at bedtime, niacin 500 mg by mouth daily. Continue amiodarone 100 mg by mouth daily. Continue spironolactone 50 mg by mouth daily Follow-up 2-D echo. GI: Start heart healthy diet CT abdomen and pelvis - no solid organ injury. Right iliac is muscle hematoma extending to right pelvic sidewall. Bilateral renal cysts. 1.3 x 1.8 cm right adrenal nodule, indeterminate. Umbilical and bilateral inguinal hernias. FEN/RENAL: Chronic kidney disease stage III Enlarged prostate Bilateral renal cysts 1.3 x 1.8 cm right adrenal nodule. Insert Fischer. Monitor intake and output. Monitor electrolyte. Replace electrolytes as clinically indicated. Continue calcitriol 0.25 mcg po daily. ID: Monitor for signs and symptoms of infection HEME: Warfarin-induced coagulopathy Patient is chronically in a coagulated with warfarin for A fib with target INR 2 -3. . Dose was reduced to 1 mg on Wednesday due to elevated outpatient INR. Hold warfarin. FFP as needed to target pre-op INR </= 1.5. Normal platelet count ENDO: Hypothyroidism Continue levothyroxine 75 mg by mouth daily Mild hyperglycemia may be secondary to stress. Monitor and order low-dose insulin sliding scale if indicated PROPH: Will use SCD for DVT prophylaxis. Hold coumadin due to acute trauma. Protonix 40 mg by mouth daily for stress ulcer prophylaxis. ACCESS: Peripheral IV providing adequate access at this time Level 2 CCM will sign off. Reconsult as needed Problem Qualifiers (1) Acetabulum fracture, right: Qualified Codes: S32.411A - Displaced fracture of anterior wall of right acetabulum, initial encounter for closed fracture (2) Afib: Qualified Codes: I48.0 - Paroxysmal atrial fibrillation Beatriz Reyna MD Mar 11, 2017 09:55
[2017-03-11] MEDS: METHOCARBAMOL 500 MG TAB PO SCH ×3 (10:12→21:40)
--- NOTE | 2017-03-11 10:23 | MB ---
cc: TRONCOSO,LAONA DATE OF CONSULTATION 03/11/2017 DATE OF ADMISSION 03/10/2017 REASON FOR CONSULTATION Right acetabular fracture. CONSULTING PHYSICIAN Dr. Grayson HISTORY Shashi is an 86-year-old male who was visiting [place]. 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 They were on a tour bus and had gone to [place] to see a horse show. He states that he was walking and his toe caught something. This caused him to lose his balance and fall. He landed on his right side. He had immediate right hip pain. He was able to get back on the bus with assistance. The bus came back to [facility] and he had difficulty getting off the bus. EMS was now called. He presented to the emergency room where x-rays revealed a right acetabular fracture. He is currently awake and alert in the Intensive Care Unit. His is at bedside. He denies dizziness, syncope or loss of consciousness. Pain is worse with movement. PAST MEDICAL HISTORY ILLNESSES 1. Coronary artery disease 2. Atrial fibrillation 3. Cardiomyopathy 4. COPD 5. Hypertension 6. Hypothyroidism SURGERIES Pacemaker placement. MEDICATIONS Medications include: 1. Coumadin 2. Amiodarone 3. Synthroid 4. Simvastatin 5. Spironolactone SOCIAL HISTORY The patient lives with his . He is retired. He denies alcohol, tobacco or drug use. FAMILY HISTORY Noncontributory REVIEW OF SYSTEMS The patient denies headache, visual changes, neck pain, chest pain, shortness of breath, abdominal pain, nausea or recent weight loss, numbness or tingling of his extremities. He denies bowel or bladder incontinence. He complains of right hip pain. Pain is worse with movement. PHYSICAL EXAMINATION The patient is a pleasant 86-year-old male who is awake and alert. He is alert and oriented x3. He is thin, but appears well-nourished. VITAL SIGNS: Temperature 97.6, pulse 88, respirations 27, blood pressure 114/64, O2 sat 99% on three liters nasal cannula. HEAD: The patient is normocephalic. EYES: Pupils are equal. NECK: Soft and nontender. Trachea is midline. ABDOMEN: Soft, nontender, and nondistended. EXTREMITIES: Examination of the bilateral upper extremities reveals no pain with shoulder, elbow or wrist motion. He has intact sensation in all fingers. He has good cap refill in all fingers. Skin is intact. Radial pulses are palpable. Examination of the left leg reveals no pain with hip, knee or ankle motion. Skin is intact. Dorsalis pedis pulses palpable. Sensation is intact. Examination of right leg reveals pain with any hip motion. He has mild tenderness to palpation around the hip. He has no tenderness of his knee, tibia or ankle. Skin is intact. Dorsalis pedis pulse is palpable. Sensation is intact. A CT scan of the pelvis was reviewed. The patient has a mildly comminuted mildly displaced right acetabular fracture. IMPRESSION 1. Atrial fibrillation 2. Cardiomyopathy 3. Hypertension 4. Possible osteoporosis 5. Right acetabular fracture PLAN Treatment options were discussed with the patient. At this point, I would recommend nonsurgical treatment. The patient does have some displacement of the articular surface. Overall, the articular surface is relatively congruent. Given his multiple medical problems, as well as his advanced age, I feel that surgery would be very high risk for him. He will need to remain toe-touch weightbearing on his right leg until the fracture heals. All questions were answered. manager forensic will need to be consulted for possible assisted facility placement. A mid-level provider in my office, nurse practitioner or PA, may see this patient on a follow-up basis and continue to implement the objective of this plan including: Starting or adjusting medications, injections of muscle, tendon, bursa or joints, cast application, orthotic or brace application, physical therapy, further radiographic studies including x-ray, MRI, CT, ultrasounds or bone scan, vascular studies, neurologic studies, or other specialist consultations, and proceeding with surgical management as appropriate. MD JOHN Danielson/DIANA /9:54 AM /10:08 AM DUSTIN
--- NOTE | 2017-03-11 12:27 | MB ---
cc: LORENA WISE DATE OF CONSULTATION 03/11/2017 REASON FOR CONSULTATION Atrial fibrillation and traumatic fall possible syncope. HISTORY OF PRESENT ILLNESS This is an 86-year-old gentleman who has a history of atrial fibrillation on chronic anticoagulation with Coumadin. He also has hyperlipidemia, some chronic kidney disease, and COPD. 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 He does not report any history of congestive heart failure or cardiomyopathy. He presented to the emergency department after a fall. He was taking a tour in [place] when he tripped over a chair and landed on the concrete floor in the barn. He denies any lightheadedness, dizziness, syncopal episode. He has a right anterior and posterior acetabular fracture. He has been seen by orthopedics who is likely going to treat conservatively. We are consulted given his history of atrial fibrillation, questionable syncope. He presented with what looks like A. Fib and demand ventricular pacing and now he is primarily AV sequentially paced. PAST MEDICAL HISTORY 1. Atrial fibrillation, probably paroxysmal on anticoagulation 2. Hyperlipidemia 3. COPD 4. Hypothyroidism 5. Chronic kidney disease MEDICATIONS 1. Warfarin 2. Amiodarone 3. Simvastatin 4. Niacin 5. Spirolactone 6. Levothyroxine 7. Calcitriol FAMILY HISTORY Denies any family history of early coronary artery disease or sudden cardiac . SOCIAL HISTORY Lifetime nonsmoker. Denies any alcohol, tobacco or drug use. REVIEW OF SYSTEMS A 12-point review of systems was performed and is negative unless otherwise as noted in the history of present illness. PHYSICAL EXAMINATION VITAL SIGNS: Temperature 97, pulse 90, blood pressure 114/64 mmHg. GENERAL: Alert and oriented x3 in no acute distress. HEENT: Exam shows pupils reactive to light accommodation. Extraocular are intact. NECK: No elevation of jugular venous distension. No thyromegaly or lymphadenopathy. No carotid bruits. LUNGS: Clear to auscultation with bibasilar crackles. CARDIOVASCULAR: Regular with some ectopy, 1/6 systolic murmur. ABDOMEN: Nontender, nondistended. Good bowel sounds. No hepatosplenomegaly. EXTREMITIES: No clubbing, shows or edema. Good peripheral pulses. NEUROLOGIC: Cranial nerves intact. Motor sensory grossly intact. LABORATORY DATA Sodium 140, potassium 4.5, BUN 35, creatinine is 1.85, INR is 1.7 down from 3.7. WBC 8.3, hemoglobin 7.9, platelet count 152. ASSESSMENT 1. Atrial fibrillation 2. Traumatic fall 3. Hypertension 4. Hyperlipidemia 5. Chronic kidney disease PLAN Currently the patient describes a traumatic fall after tripping. He had no syncopal symptoms. No loss of consciousness. He does have a history of atrial fibrillation. It looks like he may have come in rate controlled due to atrial fibrillation with demand ventricular pacing, but now it looks as if he is back into an AV sequentially paced rhythm. His anticoagulation has obviously been discontinued. We can resume whenever appropriate per orthopedics down the road. His lungs do sound is slightly wet which he had received quite a bit of fluid and now he has gotten some packed red blood cells. I talked with Dr. 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 We will monitor that closely given his elevated creatinine. No further cardiac work up is really necessary. He has a 2-D echo pending and I will take a look at that. For right now, if his echo is relatively unremarkable, we will sign off. Call with further questions. MD BERTHA Wilcox/DIANA /11:25 AM /12:15 PM
--- NOTE | 2017-03-11 12:41 | HHI.CCPN ---
Subjective Brief History EAGLE: This is an 86-year-old male who sustained a fall. He was at a horse show - via a tour bus. While walking, his toe became caught on something and he tripped and fell and landed on a concrete floor. He immediately complained of right hip pain. He was subsequently able to get up, and board the tour bus home. However he had difficulty getting off the bus once it arrived to home. EMS was called and he was brought to the hospital. PMHx: Afib (Coumadin) HLD, hypothyroidism, Pacemaker, CKD, COPD. INJURIES: RIGHT rib fx (7) RIGHT acetabular fx (non-op) RIGHT superior and inferior pubic rami fx HEMATOMA along right pelvic wall 24 Hour Review/Hospital Course 03/11/2017 PTD: 1 Patient sitting up in bed. No distress noted. Right leg in Holcomb's traction. Obtain cardiology consult due to history of A. fib on Coumadin. Stable, therefore can be transferred to the [facility] floor (Dixie Peres) Brief History As above noted patient has classic findings of acetabular fracture in an elderly male with fragile vessels and locomotor system was on anticoagulants. The moderate size retroperitoneal pelvic hematoma should be self-contained and chance off enlargement and further hemorrhages small considering that his the anticoagulation has been reversed. Eventually patient will have to be placed back on anticoagulants but I would wait another 3-4 days before restarting the same Patient can safely transfer to the floor at this time and as per to PDX the therapy will be conservative He'll be administered 2 units of blood considering hemoglobin of just about 7 g/ dL his frail status cardiac problems and cardiovascular disease (Chelly Grayson MD) Objective Vital Signs Date Time Temp Pulse Resp B/P (MAP) Pulse Ox O2 Delivery O2 Flow Rate FiO2 03/11/17 12:00 98.0 85 28 112/53 (72) 97 03/11/17 11:40 Nasal Cannula 3.00 Intake and Output 03/11/17 03/11/17 03/12/17 08:00 16:00 00:00 Intake Total 1182 ml 400 ml Output Total 250 ml Balance 932 ml 400 ml (Dixie Peres) Result Diagram: 03/11/17 0532 03/11/17 0532 Imaging Last [address] 03/10/172155 Signed Impressions: Service Date/Time: Friday, March 10, 2017 22:14 - CONCLUSION: Acute nondisplaced fracture involving the anterolateral aspect of the right seventh rib. Cardiomegaly and coronary artery calcifications. Scattered fibrotic scarring bilaterally. Tiny left pleural effusion. Degenerative changes and scoliosis of the thoracic spine. Elevation of the left hemidiaphragm. Jovan Castillo MD Abdomen/Pelvis CT 03/10/172155 Signed Impressions: Service Date/Time: Friday, March 10, 2017 22:14 - CONCLUSION: No evidence of trauma to the intra-abdominal organs. Right iliacus musculature hematoma which extends into the right pelvic sidewall and displaces the ureter bladder to the left. Enlarged prostate with central calcifications. Tiny left pleural effusion. Umbilical and bilateral inguinal hernias containing no bowel loops. Bilateral renal cysts. 1.3 x 1.8 cm right adrenal nodule which is indeterminate. Acute displaced comminuted right acetabular fracture as well as right superior and inferior to rami fractures. Severe multilevel spinal stenoses within lumbar spine. Degenerative changes and scoliosis of the lumbar spine. Cardiomegaly. Jovan Castillo MD Chest X-Ray 03/10/172139 Signed Impressions: Service Date/Time: Friday, March 10, 2017 21:54 - CONCLUSION: 1. Elevation of the left hemidiaphragm. 2. No pulmonary vascular congestion or focal pulmonary infiltrate. Jovan Castillo MD Hip and Pelvis X-Ray 03/10/17 1722 Signed Impressions: Service Date/Time: Friday, March 10, 2017 17:42 - CONCLUSION: Negative for acute fracture, if one is suspected CT scan may be of benefit. Issa Burger MD FACR Objective Remarks GENERAL: This is a 86-year-old male lying in bed. No distress noted. SKIN: Warm and dry. HEAD: Atraumatic. Normocephalic. EYES: PERRLA ENT: No nasal bleeding or discharge. Mucous membranes pink and moist. NECK: Trachea midline. No JVD. CARDIOVASCULAR: Regular rate and rhythm. RESPIRATORY: No accessory muscle use. Lungs are clear to auscultation. Breath sounds equal bilaterally. No distress or dyspnea. GASTROINTESTINAL: BS + x 4 quads. Abdomen soft, non-tender, nondistended. MUSCULOSKELETAL: Extremities without cyanosis, or edema. RIGHT leg in Holcomb's traction . + peripheral pulses x 4 extremities. Warm with good capillary refill and sensation. MAEW. NEUROLOGICAL: Awake and alert. Normal speech and pattern. 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 FITTER Awake alert oriented Hemodynamic/Cardiac Hemodynamically patient is stable Pulmonary/Respiratory Bilateral breath sounds decreased over the both lung pillai this is consistent with significant degree of COPD and pulmonary cachexia Abdomen/GI Nutrition Abdomen is soft active bowel sounds tender over the pelvis consistent with a hematoma and acetabular fracture Renal/I&O Preserved renal function with underlying chronic renal insufficiency Hematologic 2 units PRBC to be transfused for hemoglobin of 7.9 g/dL (Chelly Grayson MD) Assessment and Plan Assessment: (1) Acetabulum fracture, right ICD Code: S32.401A - Unspecified fracture of right acetabulum, initial encounter for closed fracture Status: Acute (2) Pelvic hematoma, male ICD Code: N50.1 - Vascular disorders of male genital organs Status: Acute (3) Anticoagulated on Coumadin ICD Code: Z51.81 - Encounter for therapeutic drug level monitoring; 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 He was at a horse show - via a tour bus. While walking, his toe became caught on something and he tripped and fell and landed on a concrete floor. He immediately complained of right hip pain. He was subsequently able to get up, and board the tour bus home. However he had difficulty getting off the bus once it arrived to home. EMS was called and he was brought to the hospital. PMHx: Afib (Coumadin) HLD, hypothyroidism, Pacemaker, CKD, COPD. INJURIES: RIGHT rib fx (7) RIGHT acetabular fx (non-op) RIGHT superior and inferior pubic rami fx HEMATOMA along right pelvic wall Procedures: 03/11: Holcomb's traction. Consults: [facility]. Orthopedics. Cardiology. Case management. Diet: Heart healthy diet. Tolerating po diet. Encourage good po intake with each meal. Pulmonary: Encourage good pulmonary toileting. IS at bedside and pt encouraged to use. Rationale for use explained to patient, and verbalized understanding. H&H: 7.9 / 23.6. Transfuse 2 units packed red blood cells today. Follow-up labs in the morning. Chest x-ray in the morning PAIN Management: Percocet 5-10 mg q4 hours. Morphine 2 mg q 3 hours for breakthrough pain. Robaxin 500 mg q 8 hours. Activity: BR. PT and OT ordered. Holcomb's traction. (TTWB RLE) GI prophylaxis: Protonix po. Bowel regimen: Jodie-colace and MOM. LBM: 0 DVT prophylaxis: Mechanical VTE with SCDs. Chemical management TBD due to pelvic hematoma. DC Planning: Case management consulted for assistance with final discharge disposition. Patient will most likely need rehabilitation placement. Emotional support provided to patient and family at bedside and plan of care discussed. Discussed with RN at bedside. Patient is hemodynamically stable in the ICU, therefore [facility]. The trauma team will round each day, and evaluate plan of care on a daily basis. RIGHT rib fx (7) Aggressive pulmonary toileting IS, CDB O2 as needed Pain management Chest x-ray stable Repeat chest x-ray in the morning RIGHT acetabular fx (non-op - CHAD RISK) RIGHT superior and inferior pubic rami fx Orthopedics consulted and assisting in management and care Non-operative intervention at this time Holcomb's traction Pain management PT and OT ordered TTWB RLE Posttraumatic blood loss anemia HEMATOMA along right pelvic wall A. fib - Coumadin Initial INR= 3.7 - 9/20: FFP 2 units INR this a.m. = 1.7 H&H: 7.9 / 23.6 03/11 PRBC 2 units Follow-up labs in the morning Cardiology consult - history of A. fib on Coumadin Echo pending Carotid ultrasound pending (Dixie Peres) Attestation The exam, history, and the medical decision-making described in the above note were completed with the assistance of the mid-level provider. I reviewed and agree with the findings presented. I attest that I had a [id number] encounter with the patient on the same day, and personally performed and documented my assessment and findings in the medical record. Critical care time 38 minutes. (Chelly Grayson MD) Problem Qualifiers (1) Acetabulum fracture, right: Qualified Codes: S32.411A - Displaced fracture of anterior wall of right acetabulum, initial encounter for closed fracture (2) Fall: Qualified Codes: W19.XXXA - Unspecified fall, initial encounter Dixie Peres Mar 11, 2017 12:41 Chelly Grayson MD Mar 11, 2017 16:29
--- NOTE | 2017-03-11 15:17 | ECHRPT ---
Indication: CONCLUSIONS Technically difficult study. Normal left ventricular size. Wall thickness is normal. The left ventricular systolic function is low normal with an estimated ejection fraction in the rang e of 50- 55%. The right ventricular systoilc function is mildly decreased. Mitral annular calcification is present. Aortic valve sclerosis is present. There is mild tricuspid valve regurgitation. There is estimated moderate pulmonary hypertension present (53 mmHg). BP: / HR: Rhythm: Sinus MEASUREMENTS (Male / Female) Normal Values Technical Quality:Technically difficult study 2D ECHO LV Diastolic Diameter PLAX 3.9 cm 4.2 - 5.9 / 3.9 - 5.3 cm LV Systolic Diameter PLAX 3.2 cm IVS Diastolic Thickness 1.0 cm 0.6 - 1.0 / 0.6 - 0.9 cm LVPW Diastolic Thickness 0.8 cm 0.6 - 1.0 / 0.6 - 0.9 cm LV Relative Wall Thickness 0.5 RV Internal Dim ED PLAX 2.4 cm LA Systolic Diameter LX 4.0 cm 3.0 - 4.0 / 2.7 - 3.8 cm DOPPLER MV Peak Velocity 132.0 cm/s MV Peak Gradient 7.0 mmHg MV Mean Velocity 67.9 cm/s MV Mean Gradient 2.0 mmHg Mitral E Point Velocity 112.0 cm/s TR Peak Velocity 309.0 cm/s TR Peak Gradient 38.2 mmHg Right Atrial Pressure 15.0 mmHg Pulmonary Artery Systolic Pressu 53.2 mmHg Right Ventricular Systolic Press 53.2 mmHg FINDINGS LEFT VENTRICLE Normal left ventricular size. Wall thickness is normal. The left ventricular systolic function is low normal with an estimated ejection fraction in the rang e of 50- 55%. RIGHT VENTRICLE The right ventricular systoilc function is mildly decreased. LEFT ATRIUM The left atrial size is normal. RIGHT ATRIUM The right atrial size is normal. ATRIAL SEPTUM Increased atrial septal thickness. No atrial level shunt is demonstrated by color flow Doppler interrogation. AORTA The aortic root and proximal ascending aorta are normal in size on limited imaging. MITRAL VALVE Mitral annular calcification is present. AORTIC VALVE Aortic valve sclerosis is present. TRICUSPID VALVE There is mild tricuspid valve regurgitation. There is estimated moderate pulmonary hypertension present (53 mmHg). PULMONARY VALVE No pulmonary valve regurgitation or stenosis. VESSELS The inferior vena cava is normal in size. PERICARDIUM No pericardial effusion. Zach Hairston MD, FACC Edited by: [employer] (Electronically Signed) Final Date:11 March 2017 12:16 Amended: 11 March 2017 15:17
--- NOTE | 2017-03-11 17:22 | EKG ---
Date Performed: 03/10/2017 Time Performed: 22:33:31 PTAGE: 86 years EKG: ELECTRONIC VENTRICULAR PACEMAKER ABNORMAL RHYTHM ECG PREVIOUS TRACING : 04/27/2016 19.49 Compared to prior tracing no significant change DOCTOR: Andre Hayes Interpretating Date/Time 03/11/2017 17:21:36
[2017-03-11] MEDS: PRAVASTATIN SOD 40 MG TAB PO SCH (21:39)
[2017-03-11] MEDS: MAGNESIUM HYDROXIDE SUSP 30 ML CUP PO SCH (21:39)
[2017-03-12] VITALS: BP 106/62; PULSE 91; RESP 16; TEMP 97; O2SAT 96
[2017-03-12 04:00] VITALS: BP 104/56; PULSE 87; RESP 15; TEMP 96.7; O2SAT 98
[2017-03-12 05:52] LABS: BASOPHIL # 0.2 TH/MM3 (0-0.2); BASOPHIL % 1.7 % (0.0-2.0); EOSINOPHIL # 0.1 TH/MM3 (0-0.4); EOSINOPHIL % 1.2 % (0.0-4.0); LYMPH % 6.6 % (9.0-44.0); LYMPHOCYTE # 0.7 TH/MM3 (1.0-4.8); MEAN CELL VOLUME 95.5 FL (80.0-100.0); MEAN CORPUSCULAR HEMOGLOBIN 32.9 PG (27.0-34.0); MEAN CORPUSCULAR HGB CONC 34.5 % (32.0-36.0); MONO % 14.2 % (0.0-8.0); NEUT % 76.3 % (16.0-70.0); PLATELET COUNT 139 TH/MM3 (150-450); RED BLOOD COUNT 2.93 MIL/MM3 (4.50-5.90); RED CELL DISTRIBUTION WIDTH 15.7 % (11.6-17.2); WHITE BLOOD COUNT 10.5 TH/MM3 (4.0-11.0)
[2017-03-12 05:54] LABS: HEMO FLAGS AUTO DIFF
[2017-03-12] MEDS: LEVOTHYROXINE SODIUM 75 MCG TAB PO SCH (05:56)
[2017-03-12] MEDS: METHOCARBAMOL 500 MG TAB PO SCH ×3 (05:56→20:58)
[2017-03-12 06:19] LABS: ALT (GPT) 24 U/L (12-78); ANION GAP 3 MEQ/L (5-15); AST (GOT) 31 U/L (15-37); BICARBONATE 35.7 MEQ/L (21.0-32.0); BLOOD UREA NITROGEN 39 MG/DL (7-18); CHLORIDE 100 MEQ/L (98-107); GLOMERULAR FILTRATION RATE 41 ML/MIN (>89); POTASSIUM 4.4 MEQ/L (3.5-5.1); SODIUM (NA) 139 MEQ/L (136-145)
[2017-03-12 06:22] LABS: ALKALINE PHOSPHATASE 83 U/L (45-117); TOTAL BILIRUBIN ADULT 1.4 MG/DL (0.2-1.0)
--- NOTE | 2017-03-12 06:22 | PD.ORT.PN ---
Subjective Subjective Remarks s/p right acetabulum fx doing well. pain controlled. no complaints. Objective Vitals Vital Signs Date Time Temp Pulse Resp B/P (MAP) Pulse Ox O2 Delivery O2 Flow Rate FiO2 03/12/17 04:00 96.7 87 15 104/56 (72) 98 03/12/17 00:00 97.0 91 16 106/62 (77) 96 03/11/17 21:30 97.0 91 16 106/62 (77) 96 03/11/17 21:15 81 03/11/17 21:15 96 Nasal Cannula 3.00 03/11/17 20:00 82 03/11/17 20:00 97.7 82 21 110/52 (71) 97 03/11/17 19:00 97 Nasal Cannula 3.00 03/11/17 18:00 86 03/11/17 16:00 98.0 84 27 119/71 (87) 95 03/11/17 16:00 84 03/11/17 14:00 84 03/11/17 12:00 98.0 85 28 112/53 (72) 97 03/11/17 12:00 85 03/11/17 11:40 98 Nasal Cannula 3.00 03/11/17 11:32 97.4 87 28 115/55 97 03/11/17 10:00 90 03/11/17 09:00 99 Nasal Cannula 3.00 03/11/17 08:35 97.6 88 27 114/64 99 03/11/17 08:14 97.7 93 28 118/59 98 03/11/17 08:00 97.7 93 28 118/59 (78) 98 03/11/17 08:00 93 03/11/17 07:00 98 Nasal Cannula 3.00 I/O 03/11/17 03/11/17 03/11/17 03/12/17 03/12/17 03/12/17 07:00 15:00 23:00 07:00 15:00 23:00 Intake Total 1182 ml 800 ml 0 ml Output Total 250 ml 625 ml 200 ml Balance 932 ml 800 ml -625 ml -200 ml Intake Oral 0 ml IV Total 200 ml Packed Cells 800 ml FFP 982 ml Blood Product IV Normal Saline Flush 0 ml Output Urine Total 250 ml 625 ml 200 ml # Bowel Movements 0 Result Diagram: 03/12/17 0537 03/11/17 0532 Objective Remarks RLE: +bucks traction. NVI. Assessment & Plan Assessment and Plan 1) Right Acetabulum Fx - nonop -TTWB -PT to get patient out of bed and work on transfers -DC bucks traction -CM for rehab placement -ortho cleared for DC to rehab when arrangements made -f/u with [facility] or [facility] in 2 weeks Toby Owen Mar 12, 2017 06:22
[2017-03-12] MEDS ORDERED: NORC5TAB PO (06:25)
[2017-03-12] MEDS ORDERED: WALKER/ADULT/FO1 MIS (06:25)
[2017-03-12] MEDS ORDERED: XARE10TA PO (06:25)
[2017-03-12 07:43] LABS: KERATOCYTES OCC (NORMAL); OVALOCYTES 1+ (NORMAL); PLATELET ESTIMATE SMEAR LOW (NORMAL); PLATELET MORPHOLOGY NORMAL (NORMAL); SCAN/DIFF AUTO DIFF CONFIRMED
[2017-03-12 08:00] VITALS: BP 103/57; PULSE 80; RESP 18; TEMP 95.9; O2SAT 94
--- NOTE | 2017-03-12 08:03 | RADRPT ---
EXAM DATE/TIME: 03/12/2017 06:29 [facility] COMPARISON: CHEST SINGLE AP, March 10, 2017, 21:54. INDICATIONS : Short of breath MEDICAL HISTORY : Chronic obstructive pulmonary disease. Hypertension Cardiovascular disease. acetabular fracture SURGICAL HISTORY : Pacemaker. ENCOUNTER: Subsequent ACUITY: 3 days PAIN SCORE: 0/10 LOCATION: Bilateral chest FINDINGS: A single view of the chest demonstrates elevation left hemidiaphragm, unchanged. Left-sided pacemaker . Right lung clear.. Osseous structures are intact. CONCLUSION: Chronic elevation left hemidiaphragm. Vicente Rincon MD on March 12, 2017 at 8:01 Board Certified Radiologist. This report was verified electronically.
[2017-03-12] MEDS: DOCUSATE SODIUM 50 MG/SENNA 8.6 MG TAB PO SCH ×2 (08:20→20:58)
[2017-03-12] MEDS: CALCITRIOL 0.25 MCG CAP PO SCH (08:20)
[2017-03-12] MEDS ORDERED: SENN1TAB PO (08:20)
[2017-03-12] MEDS: SPIRONOLACTONE 50 MG TAB PO SCH (08:20)
[2017-03-12] MEDS ORDERED: MAGN400S PO (08:20)
[2017-03-12] MEDS: NIACIN 500 MG EXTENDED RELEASE TAB PO SCH (08:21)
[2017-03-12] MEDS: AMIODARONE 200 MG TAB PO SCH (08:22)
[2017-03-12] MEDS: SODIUM CHLORIDE 0.9% FLUSH 10 ML FLUSH IV FLUSH SCH ×2 (08:26→20:58)
--- NOTE | 2017-03-12 09:34 | HHI.PR ---
Subjective Subjective Notes PTD: 2 Pt OOB and sitting in recliner chair. No complaints offered. Objective Vitals/I&O Vital Signs Date Time Temp Pulse Resp B/P (MAP) Pulse Ox O2 Delivery O2 Flow Rate FiO2 03/12/17 04:00 96.7 87 15 104/56 (72) 98 03/11/17 21:15 Nasal Cannula 3.00 Labs Laboratory Tests Test 03/12/17 05:37 White Blood Count 10.5 Red Blood Count 2.93 Hemoglobin 9.6 Hematocrit 28.0 Mean Corpuscular Volume 95.5 Mean Corpuscular Hemoglobin 32.9 Mean Corpuscular Hemoglobin Concent 34.5 Red Cell Distribution Width 15.7 Platelet Count 139 Mean Platelet Volume 8.6 Neutrophils (%) (Auto) 76.3 Lymphocytes (%) (Auto) 6.6 Monocytes (%) (Auto) 14.2 Eosinophils (%) (Auto) 1.2 Basophils (%) (Auto) 1.7 Neutrophils # (Auto) 8.0 Lymphocytes # (Auto) 0.7 Monocytes # (Auto) 1.5 Eosinophils # (Auto) 0.1 Basophils # (Auto) 0.2 CBC Comment AUTO DIFF Differential Comment AUTO DIFF CONFIRMED Platelet Estimate LOW Platelet Morphology Comment NORMAL Basophilic Stippling FAINT Ovalocytes 1+ Keratocytes OCC Blood Urea Nitrogen 39 Creatinine 1.62 Random Glucose 100 Total Protein 6.0 Albumin 3.0 Calcium Level 8.4 Alkaline Phosphatase 83 Aspartate Amino Transf (AST/SGOT) 31 Alanine Aminotransferase (ALT/SGPT) 24 Total Bilirubin 1.4 Sodium Level 139 Potassium Level 4.4 Chloride Level 100 Carbon Dioxide Level 35.7 Anion Gap 3 Estimat Glomerular Filtration Rate 41 Radiology Last 24 hours Impressions Chest X-Ray 03/12/17 0600 Signed Impressions: Service Date/Time: Sunday, March 12, 2017 06:29 - CONCLUSION: Chronic elevation left hemidiaphragm. Vicente Rincon MD Narrative Exam GENERAL: This is a 86-year-old male OOB in recliner chair. No distress noted. SKIN: Warm and dry. HEAD: Atraumatic. Normocephalic. EYES: PERRLA ENT: No nasal bleeding or discharge. Mucous membranes pink and moist. NECK: Trachea midline. No JVD. CARDIOVASCULAR: Regular rate and rhythm. RESPIRATORY: No accessory muscle use. Lungs are clear to auscultation. Breath sounds equal bilaterally. No distress or dyspnea. GASTROINTESTINAL: BS + x 4 quads. Abdomen soft, non-tender, nondistended. MUSCULOSKELETAL: Extremities without cyanosis, or edema. + peripheral pulses x 4 extremities. Warm with good capillary refill and sensation. MAEW. NEUROLOGICAL: Awake and alert. Normal speech and pattern. A/P Problem List: (1) Acetabulum fracture, right ICD Codes: S32.401A - Unspecified fracture of right acetabulum, initial encounter for closed fracture Status: Acute (2) Fall ICD Codes: W19.XXXA - Unspecified fall, initial encounter Status: Acute (3) Pelvic hematoma, male ICD Codes: N50.1 - Vascular disorders of male genital organs Status: Acute (4) Anticoagulated on Coumadin ICD Codes: Z51.81 - Encounter for therapeutic drug level monitoring; Z79.01 - house sitter (current) use of anticoagulants Status: Chronic Assessment and Plan [place]: This is an 86-year-old male who sustained a fall. He was at a horse show - via a tour bus. While walking, his toe became caught on something and he tripped and fell and landed on a concrete floor. He immediately complained of right hip pain. He was subsequently able to get up, and board the tour bus home. However he had difficulty getting off the bus once it arrived to home. EMS was called and he was brought to the hospital. PMHx: Afib (Coumadin) HLD, hypothyroidism, Pacemaker, CKD, COPD. INJURIES: RIGHT rib fx (7) RIGHT acetabular fx (non-op) RIGHT superior and inferior pubic rami fx HEMATOMA along right pelvic wall Procedures: 03/11: Hlocomb's traction. 03/12: Holcomb's traction DC'd Consults: [facility]. Orthopedics. Cardiology. Case management. Diet: Heart healthy diet. Tolerating po diet. Encourage good po intake with each meal. Pulmonary: Encourage good pulmonary toileting. IS at bedside and pt encouraged to use. Rationale for use explained to patient, and verbalized understanding. H&H: .. (Transfuse 2 units packed red blood cells yesterday.) Follow-up labs in the morning. Chest x-ray in the morning PAIN Management: Percocet 5-10 mg q4 hours. Morphine 2 mg q 3 hours for breakthrough pain. Robaxin 500 mg q 8 hours. Activity: OOB PT and OT ordered. (TTWB RLE) GI prophylaxis: Protonix po. Bowel regimen: Jodie-colace and MOM. Lactulose. LBM: 0 DC burnette catheter. DVT prophylaxis: Mechanical VTE with SCDs. Chemical management TBD. Begin Eliquis 2.5 mg BID. DC Planning: Case management consulted for assistance with final discharge disposition. Patient will require High level rehab in an inpatient environment due to his age, pelvic hematoma and anticoagulation status. Consult placed to [facility] rehab nurse liason for evaluation for admission. Awaiting insurance authorization. Emotional support provided to patient and family at bedside and plan of care discussed. Discussed with RN at bedside. Patient is hemodynamically stable and managed on the [facility] floor for continued care. The trauma team will round each day, and evaluate plan of care on a daily basis. RIGHT rib fx (7) Aggressive pulmonary toileting IS, CDB O2 as needed Pain management Chest x-ray stable Repeat chest x-ray in the morning RIGHT acetabular fx (non-op - CHAD RISK) RIGHT superior and inferior pubic rami fx Orthopedics consulted and assisting in management and care Non-operative intervention at this time Holcomb's traction - DC'd Pain management PT and OT ordered TTWB RLE Orthopedics have cleared the patient for DC Pt will require inpatient rehab. Posttraumatic blood loss anemia HEMATOMA along right pelvic wall A. fib - Coumadin Initial INR= 3.7 - 03/10: FFP 2 units 03/11: INR = 1.7 03/11: H&H: 7.9 / 23.6 PRBC 2 units 03/12: H&H 9. Cardiology consult - history of A. fib on Coumadin Problem Qualifiers (1) Acetabulum fracture, right: Qualified Codes: S32.411A - Displaced fracture of anterior wall of right acetabulum, initial encounter for closed fracture (2) Fall: Qualified Codes: W19.XXXA - Unspecified fall, initial encounter Dixie Peres Mar 12, 2017 09:34
[2017-03-12] MEDS ORDERED: INFLUENZA VIRUS VACCINE (QUADRIVALENT) 0.5 ML SYR IM ONE (10:00)
[2017-03-12] MEDS ORDERED: PANT40TA3 PO (10:57)
[2017-03-12] MEDS ORDERED: METH500T3 PO (10:57)
[2017-03-12 12:00] VITALS: BP 101/58; PULSE 94; RESP 18; TEMP 96.3; O2SAT 92
[2017-03-12] MEDS: APIXABAN 2.5 MG TABLET PO SCH ×2 (13:50→20:58)
[2017-03-12 16:00] VITALS: BP 102/62; PULSE 75; RESP 18; TEMP 97.1; O2SAT 97
[2017-03-12 20:00] VITALS: BP 102/63; PULSE 95; RESP 16; TEMP 97.4; O2SAT 97
[2017-03-12] MEDS: MAGNESIUM HYDROXIDE SUSP 30 ML CUP PO SCH (20:57)
[2017-03-12] MEDS: PRAVASTATIN SOD 40 MG TAB PO SCH (20:58)
[2017-03-12] MEDS: PANTOPRAZOLE SOD 40 MG DELAYED RELEASE TAB PO SCH (20:58)
[2017-03-13] VITALS (7 sets, daily range): BP systolic 90–107; BP diastolic 53–60; PULSE 67–85; RESP 18–20; TEMP 97–97.5; O2SAT 97–100
[2017-03-13 05:06] LABS: ALT (GPT) 25 U/L (12-78); ANION GAP 5 MEQ/L (5-15); AST (GOT) 29 U/L (15-37); BICARBONATE 32.7 MEQ/L (21.0-32.0); BLOOD UREA NITROGEN 43 MG/DL (7-18); CHLORIDE 99 MEQ/L (98-107); GLOMERULAR FILTRATION RATE 46 ML/MIN (>89); POTASSIUM 4.7 MEQ/L (3.5-5.1); SODIUM (NA) 137 MEQ/L (136-145)
[2017-03-13 05:08] LABS: ALKALINE PHOSPHATASE 97 U/L (45-117); TOTAL BILIRUBIN ADULT 1.1 MG/DL (0.2-1.0)
[2017-03-13 05:15] LABS: AUTOMATED NEUTROPHIL # 6.5 TH/MM3 (1.8-7.7); BASOPHIL % 0.3 % (0.0-2.0); EOSINOPHIL # 0.1 TH/MM3 (0-0.4); EOSINOPHIL % 1.5 % (0.0-4.0); HEMATOCRIT 27.9 % (39.0-51.0); HEMO FLAGS DIFF FINAL; LYMPH % 8.9 % (9.0-44.0); LYMPHOCYTE # 0.8 TH/MM3 (1.0-4.8); MEAN CELL VOLUME 100.2 FL (80.0-100.0); MEAN CORPUSCULAR HEMOGLOBIN 35.1 PG (27.0-34.0); MEAN CORPUSCULAR HGB CONC 35.1 % (32.0-36.0); MONO % 17.8 % (0.0-8.0); NEUT % 71.5 % (16.0-70.0); PLATELET COUNT 144 TH/MM3 (150-450); RED BLOOD COUNT 2.79 MIL/MM3 (4.50-5.90); RED CELL DISTRIBUTION WIDTH 15.6 % (11.6-17.2); WHITE BLOOD COUNT 9.1 TH/MM3 (4.0-11.0)
[2017-03-13] MEDS: LEVOTHYROXINE SODIUM 75 MCG TAB PO SCH (05:50)
[2017-03-13] MEDS: METHOCARBAMOL 500 MG TAB PO SCH ×3 (05:50→20:40)
--- NOTE | 2017-03-13 06:06 | RADRPT ---
EXAM DATE/TIME: 03/13/2017 04:59 [facility] COMPARISON: CHEST SINGLE AP, March 12, 2017, 6:29. INDICATIONS : Trauma. Shortness of breath. MEDICAL HISTORY : Chronic obstructive pulmonary disease. Hypertension Cardiovascular disease. acetabular fracture SURGICAL HISTORY : Pacemaker ENCOUNTER: Subsequent ACUITY: 4 - 6 days PAIN SCORE: 0/10 LOCATION: Bilateral chest FINDINGS: Stable elevation left hemidiaphragm. Cardiac pacer leads unchanged. The lungs are clear. The heart is stable in size. CONCLUSION: The lungs are clear. Bandar Carlos MD on March 13, 2017 at 6:04 Board Certified Radiologist. This report was verified electronically.
[2017-03-13] MEDS: NIACIN 500 MG EXTENDED RELEASE TAB PO SCH (09:00)
[2017-03-13] MEDS: SPIRONOLACTONE 50 MG TAB PO SCH (09:00)
[2017-03-13] MEDS: SODIUM CHLORIDE 0.9% FLUSH 10 ML FLUSH IV FLUSH SCH ×2 (09:00→20:53)
--- NOTE | 2017-03-13 09:17 | HHI.PR ---
Subjective Subjective Notes PTD: 3 Patient OOB and in recliner chair. at bedside. No complaints offered. Objective Vitals/I&O Vital Signs Date Time Temp Pulse Resp B/P (MAP) Pulse Ox O2 Delivery O2 Flow Rate FiO2 03/13/17 04:00 97.4 70 20 107/58 (74) 97 03/12/17 21:00 Nasal Cannula 2.00 Labs Laboratory Tests Test 03/13/17 02:56 White Blood Count 9.1 Red Blood Count 2.79 Hemoglobin 9.8 Hematocrit 27.9 Mean Corpuscular Volume 100.2 Mean Corpuscular Hemoglobin 35.1 Mean Corpuscular Hemoglobin Concent 35.1 Red Cell Distribution Width 15.6 Platelet Count 144 Mean Platelet Volume 8.7 Neutrophils (%) (Auto) 71.5 Lymphocytes (%) (Auto) 8.9 Monocytes (%) (Auto) 17.8 Eosinophils (%) (Auto) 1.5 Basophils (%) (Auto) 0.3 Neutrophils # (Auto) 6.5 Lymphocytes # (Auto) 0.8 Monocytes # (Auto) 1.6 Eosinophils # (Auto) 0.1 Basophils # (Auto) 0.0 CBC Comment DIFF FINAL Differential Comment Blood Urea Nitrogen 43 Creatinine 1.46 Random Glucose 109 Total Protein 6.2 Albumin 2.8 Calcium Level 8.5 Alkaline Phosphatase 97 Aspartate Amino Transf (AST/SGOT) 29 Alanine Aminotransferase (ALT/SGPT) 25 Total Bilirubin 1.1 Sodium Level 137 Potassium Level 4.7 Chloride Level 99 Carbon Dioxide Level 32.7 Anion Gap 5 Estimat Glomerular Filtration Rate 46 Radiology Last 24 hours Impressions Chest X-Ray 03/13/17 0600 Signed Impressions: Service Date/Time: Monday, March 13, 2017 04:59 - CONCLUSION: The lungs are clear. Bandar Carlos MD Narrative Exam GENERAL: This is a 86-year-old male OOB in recliner chair. No distress noted. SKIN: Warm and dry. HEAD: Atraumatic. Normocephalic. EYES: PERRLA ENT: No nasal bleeding or discharge. Mucous membranes pink and moist. NECK: Trachea midline. No JVD. CARDIOVASCULAR: Regular rate and rhythm. RESPIRATORY: No accessory muscle use. Lungs are clear to auscultation. Breath sounds equal bilaterally. No distress or dyspnea. GASTROINTESTINAL: BS + x 4 quads. Abdomen soft, non-tender, nondistended. Fischer catheter in place to bedside drainage bag MUSCULOSKELETAL: Extremities without cyanosis, or edema. + peripheral pulses x 4 extremities. Warm with good capillary refill and sensation. MAEW. NEUROLOGICAL: Awake and alert. Normal speech and pattern. A/P Problem List: (1) Acetabulum fracture, right ICD Codes: S32.401A - Unspecified fracture of right acetabulum, initial encounter for closed fracture Status: Acute (2) Fall ICD Codes: W19.XXXA - Unspecified fall, initial encounter Status: Acute (3) Pelvic hematoma, male ICD Codes: N50.1 - Vascular disorders of male genital organs Status: Acute (4) Anticoagulated on Coumadin ICD Codes: Z51.81 - Encounter for therapeutic drug level monitoring; Z79.01 - intermediate accountant (current) use of anticoagulants Status: Chronic Assessment and Plan [place]: This is an 86-year-old male who sustained a fall. He was at a horse show - via a tour bus. While walking, his toe became caught on something and he tripped and fell and landed on a concrete floor. He immediately complained of right hip pain. He was subsequently able to get up, and board the tour bus home. However he had difficulty getting off the bus once it arrived to home. EMS was called and he was brought to the hospital. PMHx: Afib (Coumadin) HLD, hypothyroidism, Pacemaker, CKD, COPD. INJURIES: RIGHT rib fx (7) RIGHT acetabular fx (non-op) RIGHT superior and inferior pubic rami fx HEMATOMA along right pelvic wall Procedures: 03/11: Holcomb's traction. 03/12: Holcomb's traction DC'd Consults: [facility]. Orthopedics. Cardiology. Case management. Diet: Heart healthy diet. Tolerating po diet. Encourage good po intake with each meal. Pulmonary: Encourage good pulmonary toileting. IS at bedside and pt encouraged to use. Rationale for use explained to patient, and verbalized understanding. H&H: 9.. (Transfuse 2 units packed red blood cells 03/11.) Follow-up labs in the morning. PAIN Management: Percocet 5-10 mg q4 hours. Morphine 2 mg q 3 hours for breakthrough pain. Robaxin 500 mg q 8 hours. Activity: OOB PT and OT ordered. (TTWB RLE) GI prophylaxis: Protonix po. Bowel regimen: Jodie-colace and MOM. Lactulose. LBM: 0 Fischer catheter had to be reinserted this morning due to urinary retention. Begin bladder training. Add Flomax. DVT prophylaxis: Mechanical VTE with SCDs. Chemical management Eliquis 2.5 mg BID. DC Planning: Case management consulted for assistance with final discharge disposition. Patient will require High level rehab in an inpatient environment due to his age, pelvic hematoma and anticoagulation status. Consult placed to [facility] rehab nurse liason for evaluation for admission. Awaiting insurance authorization. Pt is stable to DC to rehab from a trauma surgery standpoint. Emotional support provided to patient and family at bedside and plan of care discussed. Discussed with RN at bedside. Patient is hemodynamically stable and managed on the [facility] floor for continued care. The trauma team will round each day, and evaluate plan of care on a daily basis. RIGHT rib fx (7) Aggressive pulmonary toileting IS, CDB O2 as needed Pain management Chest x-ray stable Repeat chest x-ray in the morning RIGHT acetabular fx (non-op - CHAD RISK) RIGHT superior and inferior pubic rami fx Orthopedics consulted and assisting in management and care Non-operative intervention at this time Holcomb's traction - DC'd Pain management PT and OT ordered TTWB RLE Orthopedics have cleared the patient for DC Pt will require inpatient rehab. Posttraumatic blood loss anemia HEMATOMA along right pelvic wall A. fib - Coumadin Initial INR= 3.7 - 03/10: FFP 2 units 03/11: INR = 1.7 03/11: H&H: 7.9 / 23.6 PRBC 2 units 03/12: H&H 9.03/13: H&H 9. Cardiology consult - history of A. fib on Coumadin Problem Qualifiers (1) Acetabulum fracture, right: Qualified Codes: S32.411A - Displaced fracture of anterior wall of right acetabulum, initial encounter for closed fracture (2) Fall: Qualified Codes: W19.XXXA - Unspecified fall, initial encounter Dixie Peres Mar 13, 2017 09:17
[2017-03-13] MEDS: LACTULOSE SYRUP 20 GM/30 ML CUP PO SCH (11:09)
[2017-03-13] MEDS: DOCUSATE SODIUM 50 MG/SENNA 8.6 MG TAB PO SCH ×2 (11:09→20:40)
[2017-03-13] MEDS: APIXABAN 2.5 MG TABLET PO SCH ×2 (11:10→20:40)
[2017-03-13] MEDS: AMIODARONE 200 MG TAB PO SCH (11:10)
[2017-03-13] MEDS: CALCITRIOL 0.25 MCG CAP PO SCH (11:10)
[2017-03-13] MEDS: TAMSULOSIN HCL 0.4 MG CAP PO SCH (12:14)
[2017-03-13] MEDS: PANTOPRAZOLE SOD 40 MG DELAYED RELEASE TAB PO SCH (20:40)
[2017-03-13] MEDS: PRAVASTATIN SOD 40 MG TAB PO SCH (20:40)
[2017-03-13] MEDS: MAGNESIUM HYDROXIDE SUSP 30 ML CUP PO SCH (20:40)
[2017-03-14] VITALS (7 sets, daily range): BP systolic 90–105; BP diastolic 53–60; PULSE 65–83; RESP 16–19; TEMP 95.7–97.8; O2SAT 91–98
[2017-03-14] MEDS: LEVOTHYROXINE SODIUM 75 MCG TAB PO SCH (04:55)
[2017-03-14] MEDS: METHOCARBAMOL 500 MG TAB PO SCH ×3 (04:55→20:27)
[2017-03-14 05:42] LABS: AUTOMATED NEUTROPHIL # 6.5 TH/MM3 (1.8-7.7); BASOPHIL % 0.3 % (0.0-2.0); EOSINOPHIL # 0.1 TH/MM3 (0-0.4); HEMATOCRIT 25.4 % (39.0-51.0); HEMO FLAGS DIFF FINAL; LYMPH % 8.9 % (9.0-44.0); LYMPHOCYTE # 0.8 TH/MM3 (1.0-4.8); MEAN CELL VOLUME 99.4 FL (80.0-100.0); MEAN CORPUSCULAR HEMOGLOBIN 34.1 PG (27.0-34.0); MEAN CORPUSCULAR HGB CONC 34.3 % (32.0-36.0); MONO % 16.1 % (0.0-8.0); NEUT % 73.7 % (16.0-70.0); PLATELET COUNT 159 TH/MM3 (150-450); RED BLOOD COUNT 2.56 MIL/MM3 (4.50-5.90); RED CELL DISTRIBUTION WIDTH 15.3 % (11.6-17.2); WHITE BLOOD COUNT 8.9 TH/MM3 (4.0-11.0)
[2017-03-14 05:56] LABS: ALT (GPT) 22 U/L (12-78); ANION GAP 5 MEQ/L (5-15); AST (GOT) 33 U/L (15-37); BLOOD UREA NITROGEN 42 MG/DL (7-18); CHLORIDE 97 MEQ/L (98-107); GLOMERULAR FILTRATION RATE 51 ML/MIN (>89); POTASSIUM 5.1 MEQ/L (3.5-5.1); SODIUM (NA) 134 MEQ/L (136-145)
[2017-03-14 05:59] LABS: ALKALINE PHOSPHATASE 83 U/L (45-117); TOTAL BILIRUBIN ADULT 1.2 MG/DL (0.2-1.0)
[2017-03-14] MEDS: LACTULOSE SYRUP 20 GM/30 ML CUP PO SCH (09:00)
[2017-03-14] MEDS: SPIRONOLACTONE 50 MG TAB PO SCH (09:00)
[2017-03-14] MEDS: SODIUM CHLORIDE 0.9% FLUSH 10 ML FLUSH IV FLUSH SCH ×2 (09:00→20:28)
[2017-03-14] MEDS: NIACIN 500 MG EXTENDED RELEASE TAB PO SCH (09:00)
[2017-03-14] MEDS: DOCUSATE SODIUM 50 MG/SENNA 8.6 MG TAB PO SCH ×2 (09:00→20:26)
[2017-03-14] MEDS: CALCITRIOL 0.25 MCG CAP PO SCH (09:30)
[2017-03-14] MEDS: APIXABAN 2.5 MG TABLET PO SCH (09:30)
[2017-03-14] MEDS: AMIODARONE 200 MG TAB PO SCH (09:39)
[2017-03-14] MEDS: TAMSULOSIN HCL 0.4 MG CAP PO SCH (09:39)
[2017-03-14] MEDS ORDERED: SODIUM CHLORID 0.9% 500 ML INJ 500 ML IV ONE (10:00)
--- NOTE | 2017-03-14 11:05 | HHI.PR ---
Subjective Subjective Notes PTD: 5 Patient found OOB bed in recliner chair. No distress noted. No complaints offered. *1430: Called by CASPER Mares. Pt is having moderate epistaxis. Packing to nostril for direct pressure to bleeding vessel - already completed by conscientious RN. O2 NC removed as this may be drying out nasal passageway. Sats = 88-94 - WNL for this patient with COPD history. (If O2 necessary to maintain Sats > 88% , may humidify O2 NC for comfort and moisture. *1550: Called by CASPER Mares. Epistaxis had originally stopped with nasal packing , however has restarted again. Nostril has been repacked. Gabriela OCHOA. STAT H& H. STAT Type and cross and place 2 units PRBC on hold for possible transfusion once H&H resulted and if transfusion triggers are met. Plan for repeat CT abd/ pelvis in the AM. Additionally, Dr. Grayson had been made aware of pts current condition. Objective Vitals/I&O Vital Signs Date Time Temp Pulse Resp B/P (MAP) Pulse Ox O2 Delivery O2 Flow Rate FiO2 03/14/17 08:00 96.7 69 16 97/59 (72) 97 03/13/17 10:02 Nasal Cannula 2.00 Labs Laboratory Tests Test 03/14/17 04:25 White Blood Count 8.9 Red Blood Count 2.56 Hemoglobin 8.7 Hematocrit 25.4 Mean Corpuscular Volume 99.4 Mean Corpuscular Hemoglobin 34.1 Mean Corpuscular Hemoglobin Concent 34.3 Red Cell Distribution Width 15.3 Platelet Count 159 Mean Platelet Volume 8.6 Neutrophils (%) (Auto) 73.7 Lymphocytes (%) (Auto) 8.9 Monocytes (%) (Auto) 16.1 Eosinophils (%) (Auto) 1.0 Basophils (%) (Auto) 0.3 Neutrophils # (Auto) 6.5 Lymphocytes # (Auto) 0.8 Monocytes # (Auto) 1.4 Eosinophils # (Auto) 0.1 Basophils # (Auto) 0.0 CBC Comment DIFF FINAL Differential Comment Blood Urea Nitrogen 42 Creatinine 1.33 Random Glucose 105 Total Protein 5.7 Albumin 2.6 Calcium Level 8.2 Alkaline Phosphatase 83 Aspartate Amino Transf (AST/SGOT) 33 Alanine Aminotransferase (ALT/SGPT) 22 Total Bilirubin 1.2 Sodium Level 134 Potassium Level 5.1 Chloride Level 97 Carbon Dioxide Level 32.0 Anion Gap 5 Estimat Glomerular Filtration Rate 51 Narrative Exam GENERAL: This is a 86-year-old male OOB in recliner chair. No distress noted. SKIN: Warm and dry. HEAD: Atraumatic. Normocephalic. EYES: PERRLA ENT: No nasal bleeding or discharge. Mucous membranes pink and moist. NECK: Trachea midline. No JVD. CARDIOVASCULAR: Regular rate and rhythm. RESPIRATORY: No accessory muscle use. Lungs are clear to auscultation. Breath sounds equal bilaterally. No distress or dyspnea. GASTROINTESTINAL: BS + x 4 quads. Abdomen soft, non-tender, nondistended. Fischer catheter in place to bedside drainage bag - urine clear. MUSCULOSKELETAL: Extremities without cyanosis, or edema. + peripheral pulses x 4 extremities. Warm with good capillary refill and sensation. MAEW. NEUROLOGICAL: Awake and alert. Normal speech and pattern. A/P Problem List: (1) Acetabulum fracture, right ICD Codes: S32.401A - Unspecified fracture of right acetabulum, initial encounter for closed fracture Status: Acute (2) Fall ICD Codes: W19.XXXA - Unspecified fall, initial encounter Status: Acute (3) Pelvic hematoma, male ICD Codes: N50.1 - Vascular disorders of male genital organs Status: Acute (4) Anticoagulated on Coumadin ICD Codes: Z51.81 - Encounter for therapeutic drug level monitoring; Z79.01 - detention (current) use of anticoagulants Status: Chronic Assessment and Plan [place]: This is an 86-year-old male who sustained a fall. He was at a horse show - via a tour bus. While walking, his toe became caught on something and he tripped and fell and landed on a concrete floor. He immediately complained of right hip pain. He was subsequently able to get up, and board the tour bus home. However he had difficulty getting off the bus once it arrived to home. EMS was called and he was brought to the hospital. PMHx: Afib (Coumadin) HLD, hypothyroidism, Pacemaker, CKD, COPD. INJURIES: RIGHT rib fx (7) RIGHT acetabular fx (non-op) RIGHT superior and inferior pubic rami fx HEMATOMA along right pelvic wall Procedures: 03/11: Holcomb's traction. 03/12: Holcomb's traction DC'd Consults: [facility]. Orthopedics. Cardiology. Case management. Diet: Heart healthy diet. Tolerating po diet. Encourage good po intake with each meal. Pulmonary: Encourage good pulmonary toileting. IS at bedside and pt encouraged to use. Rationale for use explained to patient, and verbalized understanding. BP marginal today: UO marginal. NS 500 ml x 1 bolus today. H&H: 8.. (Transfuse 2 units packed red blood cells 03/11.) Follow-up H& H in the morning. PAIN Management: Percocet 5-10 mg q4 hours. Morphine 2 mg q 3 hours for breakthrough pain. Robaxin 500 mg q 8 hours. Activity: OOB PT and OT ordered. (TTWB RLE) GI prophylaxis: Protonix po. Bowel regimen: Jodie-colace and MOM. Lactulose. LBM: 03/14. Fischer catheter had to be reinserted this morning due to urinary retention. Bladder training - no sensation at 4 hrs, RN to increase clamping time to 6 h. Added Flomax. DVT prophylaxis: Mechanical VTE with SCDs. Chemical management Eliquis 2.5 mg BID. DC Planning: Case management consulted for assistance with final discharge disposition. Patient will require High level rehab in an inpatient environment due to his age, pelvic hematoma and anticoagulation status. Consult placed to [place] [facility] rehab nurse liason for evaluation for admission. Awaiting insurance authorization. Pt is stable to DC to rehab from a trauma surgery standpoint. Emotional support provided to patient and family at bedside and plan of care discussed. Discussed with RN at bedside. Patient is hemodynamically stable and managed on the MedSur floor for continued care. The trauma team will round each day, and evaluate plan of care on a daily basis. RIGHT rib fx (7) Aggressive pulmonary toileting IS, CDB O2 as needed Pain management Pt ordered - encourage OOB Chest x-ray stable RIGHT acetabular fx (non-op - CHAD RISK) RIGHT superior and inferior pubic rami fx Orthopedics consulted and assisting in management and care Non-operative intervention at this time Holcomb's traction - DC'd Pain management PT and OT ordered TTWB RLE Orthopedics have cleared the patient for DC Pt will require inpatient rehab - awaiting insurance authorization. Urinary retention ? hematuria Fischer catheter replaced yesterday morning due to retention Fischer with red tinged urine yesterday Possibly related to trauma of Fischer reinsertion and Eliquis initiation Irrigate Fischer PRN Monitor closely Urine clear today Posttraumatic blood loss anemia HEMATOMA along right pelvic wall A. fib - Coumadin Abdomen benign Follow-up H&H in the morning Initial INR= 3.7 - 03/10: FFP 2 units 03/11: INR = 1.7 03/11: H&H: 7.9 / 23.6 PRBC 2 units 03/12: H&H 9.6 03/13: H&H 9.8 03/14: H&H 8.7 - stable Cardiology consult - history of A. fib on Coumadin Problem Qualifiers (1) Acetabulum fracture, right: Qualified Codes: S32.411A - Displaced fracture of anterior wall of right acetabulum, initial encounter for closed fracture (2) Fall: Qualified Codes: W19.XXXA - Unspecified fall, initial encounter Dixie Peres Mar 14, 2017 11:05
[2017-03-14 17:18] LABS: REVIEW FLAG FINAL
[2017-03-14] MEDS: MAGNESIUM HYDROXIDE SUSP 30 ML CUP PO SCH (20:26)
[2017-03-14] MEDS: PANTOPRAZOLE SOD 40 MG DELAYED RELEASE TAB PO SCH (20:27)
[2017-03-14] MEDS: PRAVASTATIN SOD 40 MG TAB PO SCH (20:27)
[2017-03-15] VITALS (7 sets, daily range): BP systolic 95–116; BP diastolic 54–62; PULSE 62–80; RESP 17–18; TEMP 95.6–97.7; O2SAT 94–96
[2017-03-15] MEDS: METHOCARBAMOL 500 MG TAB PO SCH ×2 (06:00→11:12)
[2017-03-15] MEDS ORDERED: DIATRIZOATE MEGLUM/DIATRIZOATE SOD 9 ML CUP PO ONE (06:00)
[2017-03-15] MEDS: LEVOTHYROXINE SODIUM 75 MCG TAB PO SCH (06:00)
--- NOTE | 2017-03-15 06:42 | PD.ORT.PN ---
Subjective Subjective Remarks s/p right acetabulum fx doing well. pain controlled. no complaints. Objective Vitals Vital Signs Date Time Temp Pulse Resp B/P (MAP) Pulse Ox O2 Delivery O2 Flow Rate FiO2 03/15/17 03:20 97.7 62 18 98/56 (70) 94 03/15/17 00:10 97.2 64 18 95/54 (68) 94 03/15/17 00:05 Nasal Cannula 2.00 03/14/17 20:10 96.7 65 18 91/57 (68) 92 03/14/17 16:19 69 03/14/17 16:00 97.8 83 16 101/57 (72) 91 03/14/17 13:58 Room Air 03/14/17 12:00 95.7 69 16 105/60 (75) 98 03/14/17 08:48 93 Nasal Cannula 2.00 03/14/17 08:00 96.7 69 16 97/59 (72) 97 I/O 03/14/17 03/14/17 03/14/17 03/15/17 03/15/17 03/15/17 07:00 15:00 23:00 07:00 15:00 23:00 Intake Total 720 ml 980 ml 480 ml 946 ml Output Total 300 ml 150 ml 200 ml 150 ml Balance 420 ml 830 ml 280 ml 796 ml Intake Oral 720 ml 480 ml 480 ml 946 ml IV Total 500 ml Output Urine Total 300 ml 150 ml 200 ml 150 ml # Bowel Movements 0 1 0 0 Result Diagram: 03/14/17 1651 03/14/17 0425 Objective Remarks RLE: +bucks traction. NVI. Assessment & Plan Assessment and Plan 1) Right Acetabulum Fx - nonop -TTWB -PT to get patient out of bed and work on transfers -CM for rehab placement -ortho cleared for DC to rehab when arrangements made -f/u with [facility] or [facility] in 2 weeks Toby Owen Mar 15, 2017 06:42
[2017-03-15] MEDS: SPIRONOLACTONE 50 MG TAB PO SCH (09:00)
--- NOTE | 2017-03-15 09:18 | RADRPT ---
EXAM DATE/TIME: 03/15/2017 09:00 [place] COMPARISON: CT ABDOMEN & PELVIS W CONTRAST, March 10, 2017, 22:14. INDICATIONS : Follow up pelvic hematoma. ORAL CONTRAST: No oral contrast ingested. RADIATION DOSE: 11.09 CTDIvol (mGy) MEDICAL HISTORY : Hypertension. Renal insufficiency, chronic. Carcinoma, prostate. SURGICAL HISTORY : None. ENCOUNTER: Subsequent ACUITY: 4 - 6 days PAIN SCALE: 3/10 LOCATION: pelvis TECHNIQUE: Volumetric scanning of the abdomen and pelvis was performed. Using automated exposure control and ad justment of the mA and/or kV according to patient size, radiation dose was kept as low as reasonably achievable to obtain optimal diagnostic quality images. DICOM format image data is available electro nically for review and comparison. FINDINGS: Small bilateral effusions left greater than right now identified with increase in the left effusion. Mild basilar atelectasis. Cardiomegaly. There is a small cyst in the lateral segment of the left lobe of the liver. Gallbladder, spleen, pancreas, left adrenal gland unremarkable. Bilateral renal cysts are noted. There is a nodule of the right adrenal gland which is stable, and incompletely characteriz ed on this study. Atherosclerotic calcification of the aorta and iliac vessels identified. Fat-contai ysabel inguinal hernias and comminuted right superior and inferior pubic rami fractures and right aceta bular fracture again noted. There is a hematoma along the right pelvic sidewall displacing the urinar y bladder slightly to the left of midline. There is stranding of the intra-abdominal fat in this manish on. This is not significantly changed. There is a small amount of hemorrhage in the presacral region as before. Diverticulosis of the sigmoid colon is identified. There is a small amount of hemorrhage i n the left hemipelvis lateral to the urinary bladder which is unchanged. There are degenerative neil es of the spine and levoscoliosis of the lumbar spine identified. CONCLUSION: 1. Bilateral pleural effusions left greater than right identified, increased from previous. 2. Stable pelvic hematoma and comminuted pelvic fractures. 3. Right adrenal nodule. 4. Diverticulosis. 5. Atherosclerosis. 6. Liver cyst. Deny Brito MD on March 15, 2017 at 9:12 Board Certified Radiologist. This report was verified electronically.
[2017-03-15] MEDS: DOCUSATE SODIUM 50 MG/SENNA 8.6 MG TAB PO SCH (09:25)
[2017-03-15] MEDS: LACTULOSE SYRUP 20 GM/30 ML CUP PO SCH (09:25)
[2017-03-15] MEDS: TAMSULOSIN HCL 0.4 MG CAP PO SCH (09:25)
[2017-03-15] MEDS: SODIUM CHLORIDE 0.9% FLUSH 10 ML FLUSH IV FLUSH SCH (09:25)
[2017-03-15] MEDS: NIACIN 500 MG EXTENDED RELEASE TAB PO SCH (09:25)
[2017-03-15] MEDS: CALCITRIOL 0.25 MCG CAP PO SCH (09:25)
[2017-03-15] MEDS: AMIODARONE 200 MG TAB PO SCH (09:26)
--- NOTE | 2017-03-15 12:28 | HHI.DS ---
Discharge Summary Admission Date Mar 10, 2017 at 20:38 Discharge Date: Mar 15, 2017 Admitting Diagnosis acute right acetabular fracture with hematoma (1) Acetabulum fracture, right ICD Codes: S32.401A - Unspecified fracture of right acetabulum, initial encounter for closed fracture Status: Acute (2) Fall ICD Codes: W19.XXXA - Unspecified fall, initial encounter Status: Acute (3) Pelvic hematoma, male ICD Codes: N50.1 - Vascular disorders of male genital organs Status: Acute (4) Anticoagulated on Coumadin ICD Codes: Z51.81 - Encounter for therapeutic drug level monitoring; Z79.01 - nursing home (current) use of anticoagulants Status: Chronic Brief History S/P Trauma: Fall CBC/BMP: 03/14/17 1651 03/14/17 0425 Significant Findings Laboratory Tests Test 03/13/17 02:56 03/14/17 04:25 03/14/17 16:51 Red Blood Count 2.79 MIL/MM3 (4.50-5.90) 2.56 MIL/MM3 (4.50-5.90) Hemoglobin 9.8 GM/DL (13.0-17.0) 8.7 GM/DL (13.0-17.0) 9.0 GM/DL (13.0-17.0) Hematocrit 27.9 % (39.0-51.0) 25.4 % (39.0-51.0) 26.0 % (39.0-51.0) Mean Corpuscular Volume 100.2 FL (80.0-100.0) Mean Corpuscular Hemoglobin 35.1 PG (27.0-34.0) 34.1 PG (27.0-34.0) Platelet Count 144 TH/MM3 (150-450) Neutrophils (%) (Auto) 71.5 % (16.0-70.0) 73.7 % (16.0-70.0) Lymphocytes (%) (Auto) 8.9 % (9.0-44.0) 8.9 % (9.0-44.0) Monocytes (%) (Auto) 17.8 % (0.0-8.0) 16.1 % (0.0-8.0) Lymphocytes # (Auto) 0.8 TH/MM3 (1.0-4.8) 0.8 TH/MM3 (1.0-4.8) Monocytes # (Auto) 1.6 TH/MM3 (0-0.9) 1.4 TH/MM3 (0-0.9) Blood Urea Nitrogen 43 MG/DL (7-18) 42 MG/DL (7-18) Creatinine 1.46 MG/DL (0.60-1.30) 1.33 MG/DL (0.60-1.30) Random Glucose 109 MG/DL (74-106) Total Protein 6.2 GM/DL (6.4-8.2) 5.7 GM/DL (6.4-8.2) Albumin 2.8 GM/DL (3.4-5.0) 2.6 GM/DL (3.4-5.0) Total Bilirubin 1.1 MG/DL (0.2-1.0) 1.2 MG/DL (0.2-1.0) Carbon Dioxide Level 32.7 MEQ/L (21.0-32.0) Estimat Glomerular Filtration Rate 46 ML/MIN (>89) 51 ML/MIN (>89) Calcium Level 8.2 MG/DL (8.5-10.1) Sodium Level 134 MEQ/L (136-145) Chloride Level 97 MEQ/L (98-107) Imaging Last Impressions Abdomen/Pelvis CT 03/15/17 06 Signed Impressions: Service Date/Time: Wednesday, March 15, 2017 09:00 - CONCLUSION: 1. Bilateral pleural effusions left greater than right identified, increased from previous. 2. Stable pelvic hematoma and comminuted pelvic fractures. 3. Right adrenal nodule. 4. Diverticulosis. 5. Atherosclerosis. 6. Liver cyst. Deny Brito MD Chest X-Ray 03/13/17 0600 Signed Impressions: Service Date/Time: Monday, March 13, 2017 04:59 - CONCLUSION: The lungs are clear. Bandar Carlos MD Chest CT 03/10/172155 Signed Impressions: Service Date/Time: Friday, March 10, 2017 22:14 - CONCLUSION: Acute nondisplaced fracture involving the anterolateral aspect of the right seventh rib. Cardiomegaly and coronary artery calcifications. Scattered fibrotic scarring bilaterally. Tiny left pleural effusion. Degenerative changes and scoliosis of the thoracic spine. Elevation of the left hemidiaphragm. Jovan Castillo MD Hip and Pelvis X-Ray 03/10/17 1722 Signed Impressions: Service Date/Time: Friday, March 10, 2017 17:42 - CONCLUSION: Negative for acute fracture, if one is suspected CT scan may be of benefit. Issa Burger MD FACR Lower Extremity CT 03/10/17 0000 Signed Impressions: Service Date/Time: Friday, March 10, 2017 19:29 - CONCLUSION: 1. Acute displaced comminuted right acetabular fracture involving the anterior and posterior columns and superior acetabulum. 2. Acute fractures involving the right superior and inferior pubic rami. 3. Hematoma along the right pelvic sidewall. 4. Severe multilevel spinal stenoses within the lumbar spine. 5. Bilateral inguinal and umbilical hernias containing only fat and some fluid. 6. Uncomplicated colonic diverticulosis. 7. Enlarged prostate with central calcifications. Jovan Castillo MD Carotid Artery Ultrasound 03/10/17 0000 Signed Impressions: Service Date/Time: Friday, March 10, 2017 23:35 - CONCLUSION: 1. Diffuse calcified plaque with less than 50%% stenosis involving each ICA. 2. Antegrade flow involving both vertebral arteries. Bandar Santana Jr., MD PE at Discharge GENERAL: 86-year-old male lying in bed eating breakfast. SKIN: Warm and dry. HEAD: Normocephalic. ENT: No nasal bleeding or discharge. Mucous membranes pink and moist. NECK: Trachea midline. No JVD. CARDIOVASCULAR: Regular rate and rhythm. RESPIRATORY: No accessory muscle use. Lungs are clear and diminished to auscultation. Breath sounds equal bilaterally. No distress or dyspnea. GASTROINTESTINAL: BS + x 4 quads. Abdomen soft, non-tender, nondistended. GENITOURINARY: Fischer catheter in place to bedside drainage bag - urine clear yellow. MUSCULOSKELETAL: Extremities without cyanosis, or edema. + peripheral pulses x 4 extremities. Warm with good capillary refill and sensation. MAEW. NEUROLOGICAL: Awake and alert. Normal speech and pattern. Hospital Course [employer] [employer]: Trip and fall from the standing position and landed on a concrete floor. Initially ambulatory. INR = 3.7. Given FFP. INJURIES: RIGHT rib fx (7) RIGHT acetabular fx (non-op) RIGHT superior and inferior pubic rami fx (non-op) Right pelvic wall hematoma PMHx: Afib (Coumadin) HLD, hypothyroidism, Pacemaker, CKD, COPD. 03/11: Holcomb's Traction 03/12: DC Holcomb's traction Diet: Heart healthy, tolerating Pulm: IS. Nebs Pain: Percocet. Robaxin. Pain controlled Activity: OOB. PT and OT ordered. (TTWB RLE) GI: Protonix Bowel: Jodie-colace. MOM. Lactulose. LBM: 03/14 DVT: SCD's RIGHT rib fx Supportive care Pulmonary toileting OOB- PT ordered CXR stable RIGHT acetabular fx, RIGHT superior and inferior pubic rami fx Orthopedics consulted and cleared for discharge Non-operative management Pain control OOB- PT and OT ordered TTWB RLE Ortho recommends Xarelto but patients risks outweighs the benefits Urinary retention, Hematuria Fischer catheter to remain in place at discharge Eliquis discontinued Irrigate Fischer PRN H&H stable Post-traumatic blood loss anemia, Right pelvic wall hematoma Supportive care H&H stable Cardiology consulted - history of A. fib on Coumadin at home F/U CT abdomen today shows stable hematoma in the right pelvic wall Plan of care discussed with patient at bedside. Patient is clear from Trauma surgery standpoint to safely discharge to rehab. Pt Condition on Discharge: Stable Discharge Disposition: Rehab Inpatient Discharge Instructions DIET: Follow Instructions for: Heart Healthy Diet Activities you can perform: Toe Touch Weight Bearing Activities to Avoid: Concussion Sports, Strenuous Activity Other Activity Instructions: Toe touch weight bearing right leg. Dimas Garzon Mar 15, 2017 12:28
[2017-03-15 13:05] LABS: HEMATOCRIT 27.3 % (39.0-51.0); REVIEW FLAG FINAL
--- NOTE | 2017-03-15 15:43 | PD.WCN.NOT ---
Wound Consult Description: Received consult from Dixie BRICENO for wound management of Sacral area. Several small open areas and darkened skin and surrounding redness. Communicated with: CASPER mckeon and JANAK Martínez Recommendation: 1. Please cleanse sacrococcygeal area with soap and water gently and pat dry. Apply thick layer of Calazime barrier cream over wound and bilateral buttocks BID and PRN and leave open to air.Do not remove all barrier cream when cleaning patient, OK to layer. Please do not scrub barrier cream off of patient. 2. Please keep bilateral heels clean and dry and apply skin prep BID 3. Please obtain bilateral heel raiser boots 4. Patient will need specialty bed for lipscomb rehab 5. Please turn and reposition patient every 2 hours and PRN Additional Information: Patient seen on for evaluation of Sacral area wound. Positioned patient to L side with the assistance of Nat mckeon.Patient is laying on hill rom regular hospital bed and has been having multiple episodes of incontinence. Removed adhesive foam dressing in place on sacral area to reveal a large non blanchable area of deep purple macerated skin that is open to small areas partial thickness skin loss in several places. Area of purple non blanchable intact skin indicates deep tissue injury that is opening. Wound appears to have no active drainage and measures 9cm x 4cm.Cleansed wound with normal saline and patted dry before applying a thick layer of Calazime barrier cream and leaving sacral area open to air.Patient positioned off of bottom to L side with pillow for support Removed patient socks to bilateral feet to reveal L heel non blanchable area of purple skin discoloration measuring ~1cm x ~1cm, indicating deep tissue injury. R heel presents with area of non blanchable erythema measuring ~2cm x~2cm. Left bilateral heels open to air and pillow placed under BLE to float heels. Zina Buckley [facility] Mar 15, 2017 15:43
[2017-03-31] MEDS ORDERED: AMIO200T PO (08:30)
[2017-03-31] MEDS ORDERED: COUM2TAB PO (08:31)
[2017-03-31] MEDS ORDERED: THERTAB15 PO (08:31)
[2017-03-31] MEDS ORDERED: TAMS5CAP PO (08:31)
[2017-03-31] MEDS ORDERED: SENN1TAB PO (08:31)
[2017-03-31] MEDS ORDERED: OCEA0.653 EACH NARE (08:31)
[2017-03-31] MEDS ORDERED: SPIR50TA PO (08:31)
[2017-03-31] MEDS ORDERED: SIMV20TA PO (08:31)
[2017-03-31] MEDS ORDERED: NIAC500T5 PO (08:31)
[2017-03-31] MEDS ORDERED: PANT40TA3 PO (08:31)
[2017-03-31] MEDS ORDERED: COLL30T TOPICAL (08:31)
[2017-03-31] MEDS ORDERED: CALC0.25 PO (08:31)
[2017-03-31] MEDS ORDERED: FURO20TA PO (08:31)
[2017-03-31] MEDS ORDERED: LEVO75TA3 PO (08:31)
== END 2017-03-15 17:05 | DRG 535 ==
LOC: NEPC 17:08 → NEDA 20:38 → N03A 03-11 02:51 → N06A 03-11 20:53
PROVIDERS: ADMIT Surgery; ATTEND Surgery
PROC: 2W6LX0Z Traction of Right Lower Extremity using Traction Apparatus (ICD-10-PCS; principal; 2017-03-10)
PROC: 30233K1 Transfusion of Nonautologous Frozen Plasma into Peripheral Vein, Percutaneous Approach (ICD-10-PCS; 2017-03-10)
PROC: 30233N1 Transfusion of Nonautologous Red Blood Cells into Peripheral Vein, Percutaneous Approach (ICD-10-PCS; 2017-03-11)
PROC: 2Y41X5Z Packing of Nasal Region using Packing Material (ICD-10-PCS; 2017-03-14)
DX: S32.411A Displaced fracture of anterior wall of right acetabulum, initial encounter for closed fracture (principal); K66.1 Hemoperitoneum; S32.591A Other specified fracture of right pubis, initial encounter for closed fracture; E27.8 Other specified disorders of adrenal gland; I48.2 Chronic atrial fibrillation; J44.9 Chronic obstructive pulmonary disease, unspecified; M41.9 Scoliosis, unspecified; S22.31XA Fracture of one rib, right side, initial encounter for closed fracture; I25.5 Ischemic cardiomyopathy; I25.10 Atherosclerotic heart disease of native coronary artery without angina pectoris; N18.3 Chronic kidney disease, stage 3 (moderate); I12.9 Hypertensive chronic kidney disease with stage 1 through stage 4 chronic kidney disease, or unspecified chronic kidney disease; E03.9 Hypothyroidism, unspecified; N40.0 Benign prostatic hyperplasia without lower urinary tract symptoms; N28.1 Cyst of kidney, acquired; E78.5 Hyperlipidemia, unspecified; K40.20 Bilateral inguinal hernia, without obstruction or gangrene, not specified as recurrent; T45.515A Adverse effect of anticoagulants, initial encounter; K42.9 Umbilical hernia without obstruction or gangrene; N40.1 Benign prostatic hyperplasia with lower urinary tract symptoms; R33.8 Other retention of urine; R73.9 Hyperglycemia, unspecified; D50.0 Iron deficiency anemia secondary to blood loss (chronic); R04.0 Epistaxis; R31.9 Hematuria, unspecified; H91.93 Unspecified hearing loss, bilateral; W01.190A Fall on same level from slipping, tripping and stumbling with subsequent striking against furniture, initial encounter; Y92.71 Barn as the place of occurrence of the external cause; Y93.01 Activity, walking, marching and hiking; Z79.01 Long term (current) use of anticoagulants; Z95.0 Presence of cardiac pacemaker
CPT/HCPCS: 36430; 71010; 71260; 73502; 73700; 74176; 74177; 80048; 80053; 83735; 84100; 85014; 85018; 85025; 85610; 85730; 86850; 86900; 86901; 86920; 86927; 87641; 90686; 93005; 93306; 93880; 94150; 94664; 99285; J1940; J7030; J7040; J7050; J7613; P9016; P9017; Q2038; Q9963; Q9967

== ENCOUNTER 2017-04-14 15:49 | Inpatient (IN) | payer MEDICARE ==
[2017-04-14] VITALS (8 sets, daily range): BP systolic 97–104; BP diastolic 55–68; PULSE 64–77; RESP 16–20; TEMP 96–97.9; O2SAT 97–100
[~2017-04-14] VITALS: Ht 185.4 cm; Wt 94.3 kg
[~2017-04-14 15:49] MED LIST changes: +COLL30T TOPICAL; +COUM2TAB PO; +FURO1TAB60 PO; +FURO20TA PO; +MAGN400S PO; +METH500T3 PO; +NORC5TAB PO; +OCEA0.653 EACH NARE; +PANT40TA3 PO; +SENN1TAB PO; +TAMS5CAP PO; +THERTAB15 PO; +WALKER/ADULT/FO1 MIS; -WARF4TAB51 PO
--- NOTE | 2017-04-14 16:13 | PD ---
HPI Chief Complaint: Edema Time Seen by Provider: 16:05 Travel History International Travel<30 days: No Contact w/Intl Traveler<30days: No Traveled to known affect area: No History of Present Illness HPI This is a 86-year-old male who is sent from [facility] for evaluation of lower extremity edema and gross hematuria through his Fischer catheter. Duration of symptoms are currently unknown and the patient is unable to provide additional history. History is primarily obtained by the transportation team who provided the initial history of present illness as well as chart review. He was admitted in February for evaluation of a right acetabular fracture, retroperitoneal hematoma. He was discharged to rehabilitation facility and then on March 31 he was discharged to senior living facility. It appears that the patient has a history of coronary artery disease, atrial fibrillation, hypertension, COPD, previously on Coumadin which was discontinued because of the pelvic hematoma. It is unclear whether or not the patient is currently taking Coumadin, he believes that he is but he is a poor historian. The patient has no complaints at this time. He denies headache , chest pain, he endorses chronic dyspnea but denies any acute dyspnea, abdominal pain, lower extremity pain. No other complaints at this time. PFSH Past Medical History Heart Rhythm Problems: Yes (AFIB) Cancer: Yes (PROSTATE) Cardiovascular Problems: Yes High Cholesterol: Yes Chemotherapy: Yes Chest Pain: No Congestive Heart Failure: No COPD: Yes Diabetes: No Diminished Hearing: Yes (BILAT HEARING AIDS ) Endocrine: Yes Genitourinary: Yes Hypertension: Yes Immune Disorder: No Musculoskeletal: No Neurologic: No Psychiatric: No Reproductive: No Respiratory: Yes Thyroid Disease: Yes Past Surgical History Abdominal Surgery: No Cardiac Surgery: Yes (PACEMAKER) Ear Surgery: No Endocrine Surgery: No Eye Surgery: No Genitourinary Surgery: No Gynecologic Surgery: No Oral Surgery: No Pacemaker: Yes Thoracic Surgery: No Social History Alcohol Use: No Tobacco Use: No Substance Use: No Allergies-Medications (Allergen,Severity, Reaction): Coded Allergies: digoxin (Verified Adverse Reaction, Unknown, Drowsiness, 03/14/17) Reported Meds & Prescriptions Reported Meds & Active Scripts Active Senna Plus 8.6-50 mg (Sennosides-Docusate Sodium) 8.6 Mg-50 Mg Tab 1 Tab PO BID Coumadin (Warfarin) 2 Mg Tab 2 Mg PO DAILY Resume and monitor for any signs of bleeding. INR between 2-3 Thera/Beta-Carotene (Multiple Vitamin) 1 Tab Tab 1 Tab PO DAILY Santyl (Collagenase) 250 Unit/Gram Oin 1 Applic TOPICAL DAILY 30 Days Pantoprazole (Pantoprazole Sodium) 40 Mg Tab 40 Mg PO DAILY [place] [facility] Nasal (Sodium Chloride) 0.65% Pearson 2 Pearson EACH NARE QID 30 Days Furosemide 20 Mg Tab 20 Mg PO DAILY Flomax (Tamsulosin HCl) 0.4 Mg Cap 0.4 Mg PO HS Spironolactone 50 Mg Tab 50 Mg PO DAILY Simvastatin 20 Mg Tab 20 Mg PO HS Niacin 500 Mg Tab 500 Mg PO DAILY Levothyroxine (Levothyroxine Sodium) 75 Mcg Tab 75 Mcg PO DAILY Calcitriol 0.25 Mcg Cap 0.25 Mcg PO DAILY Amiodarone (Amiodarone HCl) 200 Mg Tab 100 Mg PO DAILY Pantoprazole (Pantoprazole Sodium) 40 Mg Tab 40 Mg PO Q24H 7 Days Senna Plus 8.6-50 mg (Sennosides-Docusate Sodium) 8.6 Mg-50 Mg Tab 2 Tab PO BID 15 Days Eq Milk of Magnesia (Magnesium Hydroxide) 400 Mg/5 Ml Elina 30 Ml PO HS 15 Days Reported Doxycycline Hyclate 100 Mg Cap 100 Mg PO BID Ceftin (Cefuroxime Axetil) 250 Mg Tab 500 Mg PO BID Duoneb (Ipratropium-Albuterol Neb) 0.5-2.5 Mg/3 Ml Neb 1 Nebule INH Q4HR NEB Lasix (Furosemide) 40 Mg Tab 20 Mg PO BID Review of Systems Except as stated in HPI: all other systems reviewed are Neg Physical Exam Narrative GENERAL: Chronically ill-appearing elderly male who is in no acute distress. SKIN: Pale, cool. There is a 10 x 6 cm unstageable sacral pressure ulcer which is 2 cm in depth. It is currently packed. This is consistent with notes from his rehabilitation facility. The patient has ecchymosis on his lower abdominal wall as well as on his arms and legs. HEAD: Atraumatic. Normocephalic. EYES: Pupils equal and round. No scleral icterus. No injection or drainage. ENT: No nasal bleeding or discharge. Mucous membranes pink and moist. NECK: Trachea midline. No JVD. CARDIOVASCULAR: Regular rate and rhythm. No murmur appreciated. RESPIRATORY: No accessory muscle use. Clear to auscultation. Breath sounds equal bilaterally. GASTROINTESTINAL: Abdomen soft, non-tender, nondistended. Hepatic and splenic margins not palpable. Examination reveals Fischer catheter in place with gross hematuria and back. MUSCULOSKELETAL: No obvious deformities. 4+ pitting edema bilaterally. NEUROLOGICAL: Awake and alert. No obvious cranial nerve deficits. Motor grossly within normal limits. Normal speech. PSYCHIATRIC: Appropriate mood and affect Data Data Last Documented VS Vital Signs Date Time Temp Pulse Resp B/P (MAP) Pulse Ox O2 Delivery O2 Flow Rate FiO2 04/14/17 17:00 64 16 101/56 (71) 100 Nasal Cannula 2.00 04/14/17 15:59 97.9 Orders Orders Complete Blood Count With Diff (04/14/17 16:06) Comprehensive Metabolic Panel (04/14/17 16:06) Act Partial Throm Time (Ptt) (04/14/17 16:06) Prothrombin Time / Inr (Pt) (04/14/17 16:06) Magnesium (Mg) (04/14/17 16:06) Urinalysis - C+S If Indicated (04/14/17 16:06) Electrocardiogram (04/14/17 16:06) Ecg Monitoring (04/14/17 16:06) Oximetry (04/14/17 16:06) Oxygen Administration (04/14/17 16:06) Chest, Single Ap (04/14/17 16:06) B-Type Natriuretic Peptide (04/14/17 16:06) Lactic Acid Sepsis Protocol (04/14/17 16:13) Blood Culture (04/14/17 16:13) Type And Screen (04/14/17 17:06) Fresh Frozen Plasma (Ffp) (04/14/17 17:06) Blood Product Administration (04/14/17 17:06) Phytonadione Inj (Vitamin K Inj) (04/14/17 17:15) Pantoprazole Inj (Protonix Inj) (04/14/17 17:15) Ct Abd/Pel W/O Iv Contrast (04/14/17 16:06) Sodium Chlorid 0.9% 500 Ml Inj (Ns 500 M (04/14/17 18:15) Admit Order (Ed Use Only) (04/14/17 18:06) Admit To Inpatient (04/14/17 ) Vital Signs (Adult) Q4H (04/14/17 18:05) Activity Oob With Assistance (04/14/17 18:05) Diet Npo (04/14/17 Dinner) Sodium Chlor 0.9% 1000 Ml Inj (Ns 1000 M (04/14/17 18:05) Sodium Chloride 0.9% Flush (Ns Flush) (04/14/17 18:15) Sodium Chloride 0.9% Flush (Ns Flush) (04/14/17 21:00) Acetaminophen (Tylenol) (04/14/17 18:15) Ondansetron Inj (Zofran Inj) (04/14/17 18:15) Basic Metabolic Panel (Bmp) (04/15/17 06:00) Complete Blood Count With Diff (04/15/17 06:00) Resp Oxygen Shaw C Titrat 1-4 L (04/14/17 ) Pt Request For Service (04/14/17 18:05) Case Management Consult (04/14/17 18:05) Scd Bilateral/Knee High MED.BID (04/14/17 18:05) Jeyson Bilateral/Knee High MED.QSHIFT (04/14/17 18:05) Naloxone Inj (Narcan Inj) (04/14/17 18:15) Docusate Sodium-Senna (Jodie-Colace) (04/14/17 21:00) Magnesium Hydroxide Liq (Milk Of Magnesi (04/14/17 18:15) Sennosides (Senokot) (04/14/17 18:15) Bisacodyl Supp (Dulcolax Supp) (04/14/17 18:15) Lactulose Liq (Lactulose Liq) (04/14/17 18:15) Inpatient Certification (04/14/17 ) Labs Laboratory Tests Test 04/14/17 16:20 White Blood Count 9.2 TH/MM3 Red Blood Count 2.45 MIL/MM3 Hemoglobin 8.7 GM/DL Hematocrit 25.4 % Mean Corpuscular Volume 103.7 FL Mean Corpuscular Hemoglobin 35.5 PG Mean Corpuscular Hemoglobin Concent 34.2 % Red Cell Distribution Width 17.1 % Platelet Count 147 TH/MM3 Mean Platelet Volume 9.6 FL Neutrophils (%) (Auto) 87.7 % Lymphocytes (%) (Auto) 3.7 % Monocytes (%) (Auto) 7.5 % Eosinophils (%) (Auto) 0.6 % Basophils (%) (Auto) 0.5 % Neutrophils # (Auto) 8.1 TH/MM3 Lymphocytes # (Auto) 0.3 TH/MM3 Monocytes # (Auto) 0.7 TH/MM3 Eosinophils # (Auto) 0.1 TH/MM3 Basophils # (Auto) 0.0 TH/MM3 CBC Comment DIFF FINAL Differential Comment Prothrombin Time 76.3 SEC Prothromb Time International Ratio 6.4 RATIO Activated Partial Thromboplast Time 66.8 SEC Blood Urea Nitrogen 83 MG/DL Creatinine 2.24 MG/DL Random Glucose 147 MG/DL Total Protein 6.6 GM/DL Albumin 2.7 GM/DL Calcium Level 9.3 MG/DL Magnesium Level 2.1 MG/DL Alkaline Phosphatase 207 U/L Aspartate Amino Transf (AST/SGOT) 37 U/L Alanine Aminotransferase (ALT/SGPT) 31 U/L Total Bilirubin 0.6 MG/DL Sodium Level 137 MEQ/L Potassium Level 4.6 MEQ/L Chloride Level 99 MEQ/L Carbon Dioxide Level 30.3 MEQ/L Anion Gap 8 MEQ/L Estimat Glomerular Filtration Rate 28 ML/MIN Lactic Acid Level 2.2 mmol/L B-Type Natriuretic Peptide 129 PG/ML MDM Medical Decision Making Medical Screen Exam Complete: Yes Emergency Medical Condition: Yes Medical Record Reviewed: Yes Differential Diagnosis Supratherapeutic INR, anemia, evolving retroperitoneal hematoma, dependent edema , DVT, CHF, anasarca, hypoalbuminemia Narrative Course The patient was placed on ECG monitoring pulse oximetry. Twelve-lead EKG was obtained. Plans for basic lab work, CT pelvis, chest x-ray. Rectal examination reveals brown stool which is Hemoccult positive. The patient's labwork is . His hemoglobin is 8.7 which is decreased from his most recent hospitalization in which it was 9.4. His INR is supratherapeutic at 6.4. He also has an elevated PTT of 66.8. The patient was given 2 units fresh frozen plasma and 5 mg of vitamin K. The patient's BNP is 129, his lactic acid is 2.2, his GFR is 28 which seems to be a significant decrease from his baseline and therefore the CT abdomen and pelvis was changed to without IV contrast. Chest x-ray reveals mild left lower lobe airspace disease and likely trace left pleural effusion. He has no leukocytosis or cough. He is given a small fluid bolus. Discussed the case with Dr. Snow who is agreeable with admission. HemaPrompt Point of Care Internal Pos. & Neg. Controls: Passed Fecal Specimen Occult Blood: Positive Diagnosis Primary Impression: Supratherapeutic INR Additional Impressions: GI bleed Qualified Codes: K92.2 - Gastrointestinal hemorrhage, unspecified Acute kidney injury Lower extremity edema Admitting Information Admitting Physician Requests: Admit Carlos Cassidy Apr 14, 2017 16:13
--- NOTE | 2017-04-14 16:37 | RADRPT ---
EXAM DATE/TIME: 04/14/2017 16:17 [place] COMPARISON: CHEST SINGLE AP, March 17, 2017, 15:38. INDICATIONS : Retaining fluid MEDICAL HISTORY : Cardiovascular disease. Hypertension Chronic obstructive pulmonary disease. prostate cancer, apolinar l failure SURGICAL HISTORY : Pacemaker. ENCOUNTER: Initial ACUITY: 1 day PAIN SCORE: 0/10 LOCATION: Bilateral chest FINDINGS: Redemonstration of elevation of the left hemidiaphragm. Mild airspace disease and likely trace pleura l effusion at the left lung base new since prior exam. Cardiomediastinal contours are stable. Remaind er of the exam is unchanged. CONCLUSION: 1. Stable elevation of the left hemidiaphragm. 2. Interval development of mild left lower lobe airspace disease and likely trace left pleural effusi on. Findings are concerning for developing pneumonia or aspiration in the appropriate clinical settin naina Joyce MD on April 14, 2017 at 16:34 Board Certified Radiologist. This report was verified electronically.
[2017-04-14 16:38] LABS: AUTOMATED NEUTROPHIL # 8.1 TH/MM3 (1.8-7.7); BASOPHIL % 0.5 % (0.0-2.0); EOSINOPHIL # 0.1 TH/MM3 (0-0.4); EOSINOPHIL % 0.6 % (0.0-4.0); HEMATOCRIT 25.4 % (39.0-51.0); HEMO FLAGS DIFF FINAL; LYMPH % 3.7 % (9.0-44.0); LYMPHOCYTE # 0.3 TH/MM3 (1.0-4.8); MEAN CELL VOLUME 103.7 FL (80.0-100.0); MEAN CORPUSCULAR HEMOGLOBIN 35.5 PG (27.0-34.0); MEAN CORPUSCULAR HGB CONC 34.2 % (32.0-36.0); MONO % 7.5 % (0.0-8.0); NEUT % 87.7 % (16.0-70.0); PLATELET COUNT 147 TH/MM3 (150-450); RED BLOOD COUNT 2.45 MIL/MM3 (4.50-5.90); RED CELL DISTRIBUTION WIDTH 17.1 % (11.6-17.2); WHITE BLOOD COUNT 9.2 TH/MM3 (4.0-11.0)
[2017-04-14 16:47] LABS: APTT (PATIENT) 66.8 SEC (24.3-30.1); PROTHROMBIN TIME - PATIENT 76.3 SEC (9.8-11.6)
[2017-04-14 16:56] LABS: INTERNATIONAL NORMALIZED RATIO 6.4 RATIO
[2017-04-14 17:00] LABS: ALT (GPT) 31 U/L (12-78); ANION GAP 8 MEQ/L (5-15); AST (GOT) 37 U/L (15-37); BICARBONATE 30.3 MEQ/L (21.0-32.0); BLOOD UREA NITROGEN 83 MG/DL (7-18); CHLORIDE 99 MEQ/L (98-107); GLOMERULAR FILTRATION RATE 28 ML/MIN (>89); MAGNESIUM 2.1 MG/DL (1.5-2.5); POTASSIUM 4.6 MEQ/L (3.5-5.1); SODIUM (NA) 137 MEQ/L (136-145)
[2017-04-14 17:03] LABS: ALKALINE PHOSPHATASE 207 U/L (45-117); TOTAL BILIRUBIN ADULT 0.6 MG/DL (0.2-1.0)
[2017-04-14] MEDS ORDERED: PANTOPRAZOLE SODIUM 40 MG VIAL IVP ONE (17:15)
[2017-04-14] MEDS ORDERED: PHYTONADIONE 10 MG/ML VIAL SQ ONE (17:15)
[2017-04-14] MEDS ORDERED: CEFU1TAB42 PO (18:03)
[2017-04-14] MEDS ORDERED: DOXY100C PO (18:03)
[2017-04-14] MEDS ORDERED: IPRASOL INH (18:03)
--- NOTE | 2017-04-14 18:10 | PD ---
Physical Exam Date Seen by Provider: Apr 14, 2017 Time Seen by Provider: 16:00 Narrative I, Dr. Nuñez, have reviewed the advance practice practitioner's documentation and am in agreement, met with the patient face to face, made the diagnosis, and the medical decision making was done by me. *My assessment and Findings: Patient seen and evaluated with PA, please see PA note for further details. He has been on Coumadin in the past, it is unclear whether he is currently on Coumadin, coming in with general weakness, disorientation, blood in the urine. It was noted on evaluation that he has quite a lot of leg edema as well and ecchymosis to the abdominal wall. It is unclear how new or old this issue is. However, with the blood in the urine and history of Coumadin, initial lab work was done including coag panel. EKG shows paced rhythm at a rate of 80 bpm with no signs of acute ST-T changes. Laboratory Tests Test 04/14/17 16:20 Red Blood Count 2.45 MIL/MM3 (4.50-5.90) Hemoglobin 8.7 GM/DL (13.0-17.0) Hematocrit 25.4 % (39.0-51.0) Mean Corpuscular Volume 103.7 FL (80.0-100.0) Mean Corpuscular Hemoglobin 35.5 PG (27.0-34.0) Platelet Count 147 TH/MM3 (150-450) Neutrophils (%) (Auto) 87.7 % (16.0-70.0) Lymphocytes (%) (Auto) 3.7 % (9.0-44.0) Neutrophils # (Auto) 8.1 TH/MM3 (1.8-7.7) Lymphocytes # (Auto) 0.3 TH/MM3 (1.0-4.8) Prothrombin Time 76.3 SEC (9.8-11.6) Prothromb Time International Ratio 6.4 RATIO Activated Partial Thromboplast Time 66.8 SEC (24.3-30.1) Blood Urea Nitrogen 83 MG/DL (7-18) Creatinine 2.24 MG/DL (0.60-1.30) Random Glucose 147 MG/DL (74-106) Albumin 2.7 GM/DL (3.4-5.0) Alkaline Phosphatase 207 U/L (45-117) Estimat Glomerular Filtration Rate 28 ML/MIN (>89) Lactic Acid Level 2.2 mmol/L (0.4-2.0) B-Type Natriuretic Peptide 129 PG/ML (0-100) Last 24 hours Impressions Chest X-Ray 04/14/17 1606 Signed Impressions: Service Date/Time: Friday, April 14, 2017 16:17 - CONCLUSION: 1. Stable elevation of the left hemidiaphragm. 2. Interval development of mild left lower lobe airspace disease and likely trace left pleural effusion. Findings are concerning for developing pneumonia or aspiration in the appropriate clinical setting. Wilbur Joyce MD In addition, Hemoccult was trace positive. There is concern for underlying GI bleed. Patient was initiated on Protonix. IV fluids were initiated due to hypotension. Only 500 cc was initiated initially considering that CHF status is unknown. After cultures were done, IV antibiotics are initiated in the ER secondary to chest x-ray showing possible underlying left lower lobe infiltrates. Hemoglobin is mildly low as well and INR is fairly elevated, concerning for coagulopathy causing bleeding in the urine as well as stool. Patient was initiated on vitamin K and blood products. This point, my plan would be to admit the patient for further treatment. Case is discussed with [facility] practice resident service for admission. Data Data Last Documented VS Vital Signs Date Time Temp Pulse Resp B/P (MAP) Pulse Ox O2 Delivery O2 Flow Rate FiO2 04/14/17 17:00 64 16 101/56 (71) 100 Nasal Cannula 2.00 04/14/17 15:59 97.9 Orders Orders Complete Blood Count With Diff (04/14/17 16:06) Comprehensive Metabolic Panel (04/14/17 16:06) Act Partial Throm Time (Ptt) (04/14/17 16:06) Prothrombin Time / Inr (Pt) (04/14/17 16:06) Magnesium (Mg) (04/14/17 16:06) Urinalysis - C+S If Indicated (04/14/17 16:06) Electrocardiogram (04/14/17 16:06) Ecg Monitoring (04/14/17 16:06) Oximetry (04/14/17 16:06) Oxygen Administration (04/14/17 16:06) Chest, Single Ap (04/14/17 16:06) B-Type Natriuretic Peptide (04/14/17 16:06) Lactic Acid Sepsis Protocol (04/14/17 16:13) Blood Culture (04/14/17 16:13) Type And Screen (04/14/17 17:06) Fresh Frozen Plasma (Ffp) (04/14/17 17:06) Blood Product Administration (04/14/17 17:06) Phytonadione Inj (Vitamin K Inj) (04/14/17 17:15) Pantoprazole Inj (Protonix Inj) (04/14/17 17:15) Ct Abd/Pel W/O Iv Contrast (04/14/17 16:06) Sodium Chlorid 0.9% 500 Ml Inj (Ns 500 M (04/14/17 18:15) Labs Laboratory Tests Test 04/14/17 16:20 White Blood Count 9.2 TH/MM3 Red Blood Count 2.45 MIL/MM3 Hemoglobin 8.7 GM/DL Hematocrit 25.4 % Mean Corpuscular Volume 103.7 FL Mean Corpuscular Hemoglobin 35.5 PG Mean Corpuscular Hemoglobin Concent 34.2 % Red Cell Distribution Width 17.1 % Platelet Count 147 TH/MM3 Mean Platelet Volume 9.6 FL Neutrophils (%) (Auto) 87.7 % Lymphocytes (%) (Auto) 3.7 % Monocytes (%) (Auto) 7.5 % Eosinophils (%) (Auto) 0.6 % Basophils (%) (Auto) 0.5 % Neutrophils # (Auto) 8.1 TH/MM3 Lymphocytes # (Auto) 0.3 TH/MM3 Monocytes # (Auto) 0.7 TH/MM3 Eosinophils # (Auto) 0.1 TH/MM3 Basophils # (Auto) 0.0 TH/MM3 CBC Comment DIFF FINAL Differential Comment Prothrombin Time 76.3 SEC Prothromb Time International Ratio 6.4 RATIO Activated Partial Thromboplast Time 66.8 SEC Blood Urea Nitrogen 83 MG/DL Creatinine 2.24 MG/DL Random Glucose 147 MG/DL Total Protein 6.6 GM/DL Albumin 2.7 GM/DL Calcium Level 9.3 MG/DL Magnesium Level 2.1 MG/DL Alkaline Phosphatase 207 U/L Aspartate Amino Transf (AST/SGOT) 37 U/L Alanine Aminotransferase (ALT/SGPT) 31 U/L Total Bilirubin 0.6 MG/DL Sodium Level 137 MEQ/L Potassium Level 4.6 MEQ/L Chloride Level 99 MEQ/L Carbon Dioxide Level 30.3 MEQ/L Anion Gap 8 MEQ/L Estimat Glomerular Filtration Rate 28 ML/MIN Lactic Acid Level 2.2 mmol/L B-Type Natriuretic Peptide 129 PG/ML [facility] Medical Record Reviewed: Yes Supervised Visit with REMY: Yes Diagnosis Primary Impression: Supratherapeutic INR Additional Impressions: Acute kidney injury GI bleed Qualified Codes: K92.2 - Gastrointestinal hemorrhage, unspecified Lower extremity edema Admitting Information Admitting Physician Requests: Admit Onesimo Nuñez MD Apr 14, 2017 18:10
[2017-04-14] MEDS ORDERED: ACETAMINOPHEN 325 MG TAB PO PRN (18:15)
[2017-04-14] MEDS ORDERED: SODIUM CHLORIDE 0.9% FLUSH 10 ML FLUSH IV FLUSH PRN (18:15)
[2017-04-14] MEDS ORDERED: ONDANSETRON HCL 4 MG/2 ML VIAL IVP PRN (18:15)
[2017-04-14] MEDS ORDERED: NALOXONE HCL 0.4 MG/ML AMP IV PUSH PRN (18:15)
[2017-04-14] MEDS ORDERED: SODIUM CHLORID 0.9% 500 ML INJ 500 ML IV ONE (18:15)
[2017-04-14] MEDS ORDERED: BISACODYL 10 MG SUPP RECTAL PRN (18:15)
[2017-04-14] MEDS ORDERED: MAGNESIUM HYDROXIDE SUSP 30 ML CUP PO PRN (18:15)
[2017-04-14] MEDS ORDERED: SENNOSIDES 8.6 MG TAB PO PRN (18:15)
[2017-04-14] MEDS ORDERED: LACTULOSE SYRUP 20 GM/30 ML CUP PO PRN (18:15)
[2017-04-14 18:26] LABS: LACTIC ACID GHOST NOT REPORTABLE
[2017-04-14] MEDS ORDERED: RESP: ALBUTEROL 2.5 MG/IPRATROPIUM 0.5 MG NEB (PRN) NEB (18:30)
[2017-04-14] MEDS ORDERED: AZITHROMYCIN INJ 500 MG in SODIUM CHLOR 0.9% 250 ML INJ 250 ML IV ONE (18:45)
[2017-04-14] MEDS ORDERED: CEFEPIME INJ 2,000 MG in SODIUM CHLORIDE 0.9% INJ 100 ML IV ONE (18:45)
[2017-04-14] MEDS ORDERED: SODIUM CHLORIDE 0.9% FLUSH 10 ML FLUSH IVF PRN (18:45)
--- NOTE | 2017-04-14 19:04 | HHI.HP ---
HPI Service [facility] Primary Care Physician Axel Patton MD Admission Diagnosis supratherapeutic INR, gross hematuria, HAYDE, GI bleed Diagnoses: (1) GI bleed Diagnosis: Principal (2) Hypotension Diagnosis: Principal (3) Supratherapeutic INR Diagnosis: Principal (4) HAYDE (acute kidney injury) Diagnosis: Principal (5) Lactic acidosis Diagnosis: Principal (6) PNA (pneumonia) Diagnosis: Principal (7) Afib Diagnosis: Principal (8) Thrombocytopenia Diagnosis: Principal (9) Sacral decubitus ulcer Diagnosis: Principal (10) CHF (congestive heart failure) Diagnosis: Principal Travel History International Travel<30 Days: No Contact w/Intl Traveler <30 Da: No Traveled to Known Affected Are: No History of Present Illness This is an 76-year-old male with PMH of HTN, CAD, A. fib on Coumadin and COPD who was sent to ER from [facility] for evaluation of LE edema and hematuria through Fischer. Pt very poor historian, unable to provide details of condition, however has no complaints. Recently at [facility] 03/15-03/31/17 after admit for fall w/ Right Acetabular Fx, Right Rib Fx and Intrapelvic Retroperitoneal Hematoma, s/p eval by Dr. Sherman w/ non-operative management, s/ p eval by Dr. Hairston, Echo 03/11/17 w/ EF 50-55%, continued on Lasix and Aldactone for anasarca, Coumadin on hold secondary to pelvic hematoma, however Coumadin resumed at the time of d/c as bleeding controlled and Hgb stable. Episode of urinary retention/hematuria during visit, s/p Fischer placement and removal at the time of d/c, unclear when Fischer re-inserted. On arrival to ER, BP 99/67, HR 72, O2 sat 99% on 2L NC, Afebrile. Hemoglobin 8.7, previously 9.4 on 03/29/17. Platelets 147, previously 419 on 03/29/17. Creatinine 2.24, producing 1.27 on 10/6/17. Lactic Acid 2.2. BNP 129. INR 6.4. UA pending. CXR w/ development of mild left lower lobe airspace disease, possibly effusion versus early pneumonia. S/p Zithro/Cefepime in ER in addition to 2u FFP and Vitamin K. Hemoccult + on exam. Consult for GI placed. Review of Systems Except as stated in HPI: all other systems reviewed are Neg ROS: 14 point review of systems otherwise negative. Past Family Social History Past Medical History PMH: HTN, CAD, A. fib on Coumadin and COPD Past Surgical History PAST SURGICAL HISTORY: Pacemaker Allergies: Coded Allergies: digoxin (Verified Adverse Reaction, Unknown, Drowsiness, 03/14/17) Family History PAST FAMILY HISTORY: Reviewed. No h/o DM or CAD Social History PAST SOCIAL HISTORY: Negative for alcohol, tobacco or drugs. Physical Exam Vital Signs Vital Signs Date Time Temp Pulse Resp B/P (MAP) Pulse Ox O2 Delivery O2 Flow Rate FiO2 04/14/17 18:34 77 17 99/65 (76) 97 Nasal Cannula 2.00 04/14/17 18:34 97.5 65 16 99/65 04/14/17 18:00 71 18 97/67 (77) 97 Nasal Cannula 2.00 04/14/17 17:00 64 16 101/56 (71) 100 Nasal Cannula 2.00 04/14/17 16:00 97 Nasal Cannula 2.00 04/14/17 15:59 97.9 73 16 104/66 (79) 98 Nasal Cannula 2.00 04/14/17 15:59 97 Nasal Cannula 2.00 04/14/17 15:59 97.9 72 17 99/67 (78) 99 Physical Exam PE: GENERAL: Pleasant elderly white male in no acute distress, ELY SHOSHONE. HEENT: PERRLA, EOMI. No scleral icterus or conjunctival pallor. No lid lag or facial droop. CARDIOVASCULAR: Regular rate and rhythm. No obvious murmurs to auscultation. No chest tenderness to palpation. RESPIRATORY: No obvious rhonchi or wheezing. Clear to auscultation. Breath sounds equal bilaterally. GASTROINTESTINAL: Abdomen soft, non-tender, nondistended. BS normal. MUSCULOSKELETAL: Extremities without clubbing, cyanosis. +3 pitting edema bilaterally. No obvious deformities. Sacral decubitus ulcer, present on admission NEUROLOGICAL: Awake, alert. No focal neurologic deficits. Moving both upper and lower extremities spontaneously. Laboratory Laboratory Tests Test 04/14/17 16:20 04/14/17 17:50 White Blood Count 9.2 Red Blood Count 2.45 Hemoglobin 8.7 Hematocrit 25.4 Mean Corpuscular Volume 103.7 Mean Corpuscular Hemoglobin 35.5 Mean Corpuscular Hemoglobin Concent 34.2 Red Cell Distribution Width 17.1 Platelet Count 147 Mean Platelet Volume 9.6 Neutrophils (%) (Auto) 87.7 Lymphocytes (%) (Auto) 3.7 Monocytes (%) (Auto) 7.5 Eosinophils (%) (Auto) 0.6 Basophils (%) (Auto) 0.5 Neutrophils # (Auto) 8.1 Lymphocytes # (Auto) 0.3 Monocytes # (Auto) 0.7 Eosinophils # (Auto) 0.1 Basophils # (Auto) 0.0 CBC Comment DIFF FINAL Differential Comment Prothrombin Time 76.3 Prothromb Time International Ratio 6.4 Activated Partial Thromboplast Time 66.8 Blood Urea Nitrogen 83 Creatinine 2.24 Random Glucose 147 Total Protein 6.6 Albumin 2.7 Calcium Level 9.3 Magnesium Level 2.1 Alkaline Phosphatase 207 Aspartate Amino Transf (AST/SGOT) 37 Alanine Aminotransferase (ALT/SGPT) 31 Total Bilirubin 0.6 Sodium Level 137 Potassium Level 4.6 Chloride Level 99 Carbon Dioxide Level 30.3 Anion Gap 8 Estimat Glomerular Filtration Rate 28 Lactic Acid Level 2.2 B-Type Natriuretic Peptide 129 Date/Time Source Procedure Growth Status 04/14/17 16:25 Blood Peripheral Aerobic Blood Culture Pending Received 04/14/17 16:25 Blood Peripheral Anaerobic Blood Culture Pending Received Result Diagram: 04/14/17 1620 04/14/17 1620 Caprini VTE Risk Assessment Caprini VTE Risk Assessment: No/Low Risk (score <= 1) VTE Pharm Contraindication: Active bleeding Caprini Risk Assessment Model Point Value = 1 Point Value = 2 Point Value = 3 Point Value = 5 Age 41-60 Minor surgery BMI > 25 kg/m2 Swollen legs Varicose veins or History of unexplained or recurrent spontaneous Oral contraceptives or hormone replacement Sepsis (< 1 month) Serious lung disease, including pneumonia (< 1 month) Abnormal pulmonary function Acute myocardial infarction Congestive heart failure (< 1 month) History of inflammatory bowel disease Medical patient at bed rest Age 61-74 Arthroscopic surgery Major open surgery (> 45 min) Laparoscopic surgery (> 45 min) Malignancy Confined to bed (> 72 hours) Immobilizing plaster cast Central venous access Age >= 75 History of VTE Family history of VTE Factor V Leiden Prothrombin [id number] Lupus anticoagulant Anticardiolipin antibodies Elevated serum homocysteine Heparin-induced thrombocytopenia Other congenital or acquired thrombophilia Stroke (< 1 month) Elective arthroplasty Hip, pelvis, or leg fracture Acute spinal cord injury (< 1 month) Prophylaxis Regimen Total Risk Factor Score Risk Level Prophylaxis Regimen 0-1 Low Early ambulation 2 Moderate Order ONE of the following: *Sequential Compression Device (SCD) *Heparin 5000 units SQ BID 3-4 Higher Order ONE of the following medications: *Heparin 5000 units SQ TID *Enoxaparin/Lovenox 40 mg SQ daily (WT < 150 kg, CrCl > 30 mL/min) *Enoxaparin/Lovenox 30 mg SQ daily (WT < 150 kg, CrCl > 10-29 mL/min) *Enoxaparin/Lovenox 30 mg SQ BID (WT < 150 kg, CrCl > 30 mL/min) AND/OR *Sequential Compression Device (SCD) 5 or more Highest Order ONE of the following medications: *Heparin 5000 units SQ TID (Preferred with Epidurals) *Enoxaparin/Lovenox 40 mg SQ daily (WT < 150 kg, CrCl > 30 mL/min) *Enoxaparin/Lovenox 30 mg SQ daily (WT < 150 kg, CrCl > 10-29 mL/min) *Enoxaparin/Lovenox 30 mg SQ BID (WT < 150 kg, CrCl > 30 mL/min) AND *Sequential Compression Device (SCD) Assessment and Plan Problem List: (1) GI bleed ICD Code: K92.2 - Gastrointestinal hemorrhage, unspecified Status: Acute (2) Hypotension ICD Code: I95.9 - Hypotension, unspecified (3) Supratherapeutic INR ICD Code: R79.1 - Abnormal coagulation profile Status: Acute (4) Thrombocytopenia ICD Code: D69.6 - Thrombocytopenia, unspecified (5) HAYDE (acute kidney injury) ICD Code: N17.9 - Acute kidney failure, unspecified (6) Lactic acidosis ICD Code: E87.2 - Acidosis (7) PNA (pneumonia) ICD Code: J18.9 - Pneumonia, unspecified organism (8) Afib ICD Code: I48.91 - Unspecified atrial fibrillation Status: Chronic (9) CHF (congestive heart failure) ICD Code: I50.9 - Heart failure, unspecified (10) Sacral decubitus ulcer ICD Code: L89.159 - Pressure ulcer of sacral region, unspecified stage Assessment and Plan A/P: 1. GI Bleed: Hemoccult + on exam, currently on Coumadin for h/o A-fib. Hgb 8.7, previously 9.4 on 03/29/17. GI Consult placed. Start Pepcid IV, hold Coumadin, check repeat INR in am. 2. Supratherapeutic INR: INR 6.4, recent admit for Right Hip Fx/ Retroperitoneal Hematoma, Coumadin held and resumed at time of d/c. S/p 2u FFP and Vitamin K in ER. CT Abd/Pelvis pending to eval for recurrent hematoma. Monitor closely. Repeat INR in am, repeat Hgb/Hct 3. Hypotension: BP 99/67, HR 72. Asymptomatic, appears to be baseline in comparison from vitals from last admission. Will monitor. Caution w/ diuresis. 4. Thrombocytopenia: Acute. Platelets 147, previously 419 on 03/29/17. Will hold Coumadin as above. Repeat labs in a.m. 5. HAYDE: Creatinine 2.24, previously 1.27 on 03/26/17. S/p IVF in ER, currently on maintenance IVF @75/hr, monitor for fluid overload. Repeat labs in am. 6. Lactic Acidosis: Lactate 2.2, no signs of sepsis, afebrile, no leukocytosis. IVF, repeat Lactic Acid in am. 7. PNA: CXR w/ mild LLL trace effusion and findings concerning for early PNA, images reviewed by me. S/p Cefepime/Zithro in ER. Continue w/ IV Abx, DuoNeb prn. 8. A-fib: Chronic. Controlled. Resume home medications, caution w/ hypotension. 9. CHF: Chronic. Systolic. BNP 129, CXR w/ trace effusion, resume Lasix/ Aldactone, Monitor I/O. 10. Decubitus Ulcer: Sacral. Present on admission, wound packed. Consult Wound Management for further eval. 11. DVT Prophylaxis: Pharmacologic contraindication secondary to GI Bleed and supratherapeutic INR. 12. Social work for d/c planning as needed. 13. Case discussed w/ ER physician at length. Physician Certification 2 Midnight Certification Type: Admission for Inpatient Services Order for Inpatient Services The services are ordered in accordance with Medicare regulations or non- Medicare payer requirements, as applicable. In the case of services not specified as inpatient-only, they are appropriately provided as inpatient services in accordance with the 2-midnight benchmark. Estimated LOS (days): 2 days is the estimated time the patient will need to remain in the hospital, assuming treatment plan goals are met and no additional complications. Post-Hospital Plan: Not yet determined Problem Qualifiers (1) GI bleed: Qualified Codes: K92.2 - Gastrointestinal hemorrhage, unspecified Ledy Carter MD Apr 14, 2017 19:04
[2017-04-14 19:20] LABS: BLOOD, URINE LARGE (NEG); COMMENT (UR) CULTURE INDICATED; CULTURE IF INDICATED CULTURE INDICATED; GLUCOSE,URINE NEG (NEG); KETONE, URINE 10 mg/dL (NEG); NITRITE,URINE NEG (NEG); PH, URINE 5.5 (5.0-8.5); URINE COLOR DARK-RED (YELLW/STRAW)
--- NOTE | 2017-04-14 20:06 | RADRPT ---
EXAM DATE/TIME: 04/14/2017 17:22 [facility] COMPARISON: CT ABDOMEN & PELVIS W/O CONTRAST, March 15, 2017, 9:00. INDICATIONS : hypertension with edema . ORAL CONTRAST: No oral contrast ingested. RADIATION DOSE: 10.25 CTDIvol (mGy) MEDICAL HISTORY : Hypertension. . prostate ca SURGICAL HISTORY : None. ENCOUNTER: Initial ACUITY: 1 day PAIN SCALE: 6/10 LOCATION: Bilateral lower quadrant TECHNIQUE: Volumetric scanning of the abdomen and pelvis was performed. Using automated exposure control and ad justment of the mA and/or kV according to patient size, radiation dose was kept as low as reasonably achievable to obtain optimal diagnostic quality images. DICOM format image data is available electro nically for review and comparison. FINDINGS: LOWER LUNGS: Normal size left diaphragmatic eventration contains the majority of the stomach in portions of the sp lucinda and colon. There is bronchiectasis, fluid and atelectasis in the posterior right lung base. Radi odense material in the consolidated lung may be aspirated material. LIVER: Homogeneous density without lesion. There is no dilation of the biliary tree. No calcified gallston es. SPLEEN: Normal size without lesion. PANCREAS: Within normal limits. KIDNEYS: Right renal cysts. No evidence of hydronephrosis or stone. ADRENAL GLANDS: Slightly less than 2 cm right adrenal mass. VASCULAR: Dense intimal calcification throughout the vascular structures. No aneurysm. BOWEL/MESENTERY: The stomach, small bowel, and colon demonstrate no acute abnormality. There is no free intraperitone al air or fluid. ABDOMINAL WALL: Within normal limits. RETROPERITONEUM: There is no lymphadenopathy. BLADDER: Decompressed with Fischer catheter. REPRODUCTIVE: Within normal limits. INGUINAL: Fat-containing left inguinal hernia MUSCULOSKELETAL: Right pelvic and acetabular fractures. CONCLUSION: No acute intra-abdominal process is identified. Axel Lazo MD on April 14, 2017 at 19:47 Board Certified Radiologist. This report was verified electronically.
[2017-04-14] MEDS ORDERED: FUROSEMIDE 40 MG TAB PO SCH (21:00)
[2017-04-14] MEDS: SODIUM CHLORIDE 0.65% NASAL SPRAY 45 ML BTL EACH NARE SCH (21:00)
[2017-04-14] MEDS: TAMSULOSIN HCL 0.4 MG CAP PO SCH (21:00)
[2017-04-14] MEDS: SODIUM CHLOR 0.9% 1000 ML INJ 1,000 ML IV SCH (21:27)
[2017-04-14] MEDS: DOCUSATE SODIUM 50 MG/SENNA 8.6 MG TAB PO SCH (22:31)
[2017-04-14] MEDS: PRAVASTATIN SOD 40 MG TAB PO SCH (22:31)
[2017-04-14] MEDS: SODIUM CHLORIDE 0.9% FLUSH 10 ML FLUSH IV FLUSH SCH (22:37)
[2017-04-14 23:14] LABS: HEMATOCRIT 25.7 % (39.0-51.0); REVIEW FLAG FINAL
[2017-04-15] VITALS (17 sets, daily range): BP systolic 70–100; BP diastolic 29–66; PULSE 65–85; RESP 18–24; TEMP 89.6–97.7; O2SAT 91–98
[2017-04-15] MEDS: LEVOTHYROXINE SODIUM 75 MCG TAB PO SCH (06:48)
[2017-04-15 07:37] LABS: BASOPHIL % 0.3 % (0.0-2.0); EOSINOPHIL % 0.5 % (0.0-4.0); HEMO FLAGS DIFF FINAL; LYMPH % 3.6 % (9.0-44.0); LYMPHOCYTE # 0.3 TH/MM3 (1.0-4.8); MEAN CELL VOLUME 100.7 FL (80.0-100.0); MEAN CORPUSCULAR HEMOGLOBIN 34.5 PG (27.0-34.0); MEAN CORPUSCULAR HGB CONC 34.3 % (32.0-36.0); MONO % 6.1 % (0.0-8.0); NEUT % 89.5 % (16.0-70.0); PLATELET COUNT 133 TH/MM3 (150-450); RED BLOOD COUNT 2.48 MIL/MM3 (4.50-5.90); RED CELL DISTRIBUTION WIDTH 17.2 % (11.6-17.2); WHITE BLOOD COUNT 8.9 TH/MM3 (4.0-11.0)
[2017-04-15 07:46] LABS: INTERNATIONAL NORMALIZED RATIO 2.5 RATIO; PROTHROMBIN TIME - PATIENT 28.8 SEC (9.8-11.6)
[2017-04-15] MEDS: CALCITRIOL 0.25 MCG CAP PO SCH (09:00)
[2017-04-15] MEDS: SODIUM CHLORIDE 0.65% NASAL SPRAY 45 ML BTL EACH NARE SCH ×4 (09:00→21:00)
[2017-04-15] MEDS ORDERED: PANTOPRAZOLE SOD 40 MG DELAYED RELEASE TAB PO SCH (09:00)
[2017-04-15] MEDS: DOCUSATE SODIUM 50 MG/SENNA 8.6 MG TAB PO SCH ×2 (09:00→21:00)
[2017-04-15] MEDS ORDERED: SPIRONOLACTONE 50 MG TAB PO SCH (09:00)
[2017-04-15] MEDS: SODIUM CHLORIDE 0.9% FLUSH 10 ML FLUSH IV FLUSH SCH ×2 (09:00→21:00)
[2017-04-15] MEDS ORDERED: FAMOTIDINE 20 MG/2 ML VIAL IV PUSH SCH (09:00)
[2017-04-15] MEDS: NIACIN 100 MG TAB PO SCH (09:00)
[2017-04-15] MEDS ORDERED: FUROSEMIDE 20 MG TAB PO SCH (09:00)
[2017-04-15] MEDS: SODIUM CHLOR 0.9% 1000 ML INJ 1,000 ML IV SCH (09:20)
[2017-04-15] MEDS ORDERED: SODIUM CHLOR 0.9% 250 ML INJ 250 ML IV ONE (10:00)
[2017-04-15] MEDS: AMIODARONE 200 MG TAB PO SCH (10:17)
--- NOTE | 2017-04-15 12:25 | PD.CONS ---
Consult Service Palliative Care . Consult Requested By Dr. Talbto . Primary Care Physician Axel Patton MD . Reason for Consultation a. To assist with evaluation and management of symptoms including: dyspnea, decreased appetite, debility b. To assist medical decision maker(s) with: better understanding of current medical conditions; weighing benefits/burdens of medical treatment options; making medical treatment decisions. . (Jud Law) HPI History of Present Illness Mr. Richardson is an 86-year-old male with HTN, CAD, atrial fibrillation (on anticoagulation therapy), ischemic cardiomyopathy s/p pacemaker, COPD, hypothyroidism, hyperlipidemia, [place] and chronic kidney disease. He presented from the [facility] on 04/14/2017 for evaluation of lower extremity edema and gross hematuria through his Fischer catheter. Duration of symptoms unknown. Patient is a poor historian; he had no complaints upon arrival to the ED. Patient was recently hospitalized in February, after sustaining a right acetabular fracture, right rib fracture and intrapelvic retroperitoneal hematoma after a fall. Dr. Sherman evaluated the patient and recommendations were made for non-operative management of fractures. The patient was also evaluated by cardiology during this hospitalization; most recent echocardiogram on 03/11/2017 with EF 50-55%. The patient's Coumadin was held temporarily secondary to the pelvic hematoma and was later resumed at the time of discharge. Upon discharge Mr. Richardson was transferred to [facility] inpatient rehabilitation where he remained from 03/15/2017 - 03/31/2017; he was then transferred to a shelter facility. Additional diagnostic data: * Vital signs: Pulse 72, respirations 16, BP 96/67, oxygen saturation 98% on 2 L nasal cannula, oral temperature 97.9 * EKG showed paced rhythm at a rate of 80 bpm with no signs of acute ST-T changes. * WBC: 9.2, hemoglobin 8.7, hematocrit 25.4, platelets 147, neutrophils 87.7% * Sodium: 137, potassium 4.6, chloride 99, carbon dioxide 30.3, random glucose 147, calcium 9.3, magnesium 2.1 * BUN: 83, creatinine 2.24, GFR 28 * Total bilirubin: 0.6, AST 37, ALT 31, alkaline phosphatase 207 * Total protein: 6.6, albumin 2.7 * PT: 76.3, INR 6.4, APTT 66.8 * BNP: 129 * Lactic acid: 2.2. * Chest x-ray showed stable elevation of left hemidiaphragm. Interval development of mild left lower lobe airspace disease and likely trace left pleural effusion-findings are concerning for developing pneumonia or aspiration in the appropriate clinical setting. * Urinalysis with dark red urine with elevated protein, elevated ketones, large amount of occult blood and leukocyte esterase. * Urine culture pending * Blood culture negative today Rectal examination with trace positive Hemoccult stool, concerning for underlying GI bleed. Hemoglobin was mildly low at 8.7, INR supratherapeutic at 6.4 concerning for coagulopathy causing bleeding in the urine as well as the stool. Patient was started on Protonix and given a 500 mL bolus secondary to hypotension. He received 2 units of fresh frozen plasma and 5 mg of vitamin K. GFR significantly lower than baseline at 28; BNP and Lactic acid were elevated. Patient was admitted for further evaluation and medical management of supratherapeutic INR. On exam, patient with worsening dyspnea and 3++ edema in bilateral lower extremities. Follow-up chest x-ray this afternoon showing cardiomegaly with bilateral pleural effusions and bibasilar infiltrates suggestive of pulmonary edema. Patient received 0.5 mg of Bumex IV 1. . Function/Cognitive Trajectory . Patient and his indicate that the patient was completely independent prior to a fall in February, at which time he sustained fractures and an intrapelvic retroperitoneal hematoma. The patient was hospitalized for 5 days; he then spent 3 weeks at [facility] inpatient rehabilitation before transferring to a shelter facility. Patient is significantly deconditioned at this time; lethargic with decreased nutritional intake. . (Jud Law) Review of Systems ROS Limitations: Clinical Condition, Hearing Impaired, Poor Historian Constitutional: COMPLAINS OF: Fatigue, Change in appetite (decreased appetite) , Generalized weakness Ears, nose, mouth, throat: COMPLAINS OF: Hearing loss Respiratory: COMPLAINS OF: Cough, Shortness of breath Cardiovascular: COMPLAINS OF: Chest pain, Lower Extremity Edema Gastrointestinal: DENIES: Abdominal pain, Bloody stools, Constipation, Nausea, Vomiting, Anorexia, Vomiting blood Musculoskeletal: COMPLAINS OF: Joint pain, Back pain Hematologic/Lymphatics: COMPLAINS OF: Bruising, DENIES: History of transfusions (2 units of fresh frozen plasma on 04/14/2017) (Jud Law) Past Family Social History Coded Allergies: digoxin (Verified Adverse Reaction, Unknown, Drowsiness, 03/14/17) Past Medical History Hypertension CHF Coronary artery disease Atrial fibrillation on anticoagulation therapy Ischemic cardiomyopathy s/p pacemaker COPD Hypothyroidism Hyperlipidemia [place] Chronic kidney disease Past Surgical History Pacemaker . Reported Medications Doxycycline Hyclate 100 Mg Cap 100 Mg PO BID Ceftin (Cefuroxime Axetil) 250 Mg Tab 500 Mg PO BID Duoneb (Ipratropium-Albuterol Neb) 0.5-2.5 Mg/3 Ml Neb 1 Nebule INH Q4HR NEB Lasix (Furosemide) 40 Mg Tab 20 Mg PO BID . Current Medications Medications (Trade) Dose Ordered Sig/Cecilio Route Start Time Stop Time Status Last Admin Sodium Chloride 1,000 ml @ 75 mls/hr [id number] IV 04/14/17 20:00 04/15/17 09:20 (NS Flush) 2 ml UNSCH PRN IV FLUSH 04/14/17 18:15 (NS Flush) 2 ml BID IV FLUSH 04/14/17 21:00 04/14/17 22:37 (Tylenol) 650 mg Q4H PRN PO 04/14/17 18:15 (Zofran Inj) 4 mg Q6H PRN IVP 04/14/17 18:15 (Narcan Inj) 0.4 mg UNSCH PRN IV PUSH 04/14/17 18:15 (Jodie-Colace) 1 tab BID PO 04/14/17 21:00 04/15/17 09:00 (Milk Of Magnesia Liq) 30 ml Q12H PRN PO 04/14/17 18:15 (Senokot) 17.2 mg Q12H PRN PO 04/14/17 18:15 (Dulcolax Supp) 10 mg DAILY PRN RECTAL 04/14/17 18:15 (Lactulose Liq) 30 ml DAILY PRN PO 04/14/17 18:15 (Cordarone) 100 mg DAILY PO 04/15/17 09:00 04/15/17 10:17 (Rocaltrol) 0.25 mcg DAILY PO 04/15/17 09:00 (Lasix) 20 mg BID PO 04/14/17 21:00 Future Hold 04/14/17 22:37 (Synthroid) 75 mcg DAILY@0600 PO 04/15/17 06:00 ([place]) 2 spray QID EACH NARE 04/14/17 21:00 (Aldactone) 50 mg DAILY PO 04/15/17 09:00 Future Hold (Flomax) 0.4 mg HS PO 04/14/17 21:00 (Niacin) 500 mg DAILY PO 04/15/17 09:00 (Pravachol) 40 mg HS PO 04/14/17 21:00 04/14/17 22:31 (Duoneb Neb) 1 ampule Q4HR NEB PRN NEB 04/14/17 18:30 Cefepime HCl 2000 mg/Sodium Chloride 100 ml @ 200 mls/hr Q24H IV 04/15/17 22:00 Azithromycin 500 mg/Sodium Chloride 250 ml @ 250 mls/hr Q24H IV 04/15/17 23:00 04/15/17 05:21 (Pepcid Inj) 10 mg Q12H IV PUSH 04/15/17 09:00 . Family History Patient's mother in her early 70s. She had a history of diabetes. The patient's father when he was 94 years old from an aortic dissection. The patient's sister with a history of heart disease; she in her early 80s. . Substance Use Tobacco: Patient denies history of smoking Alcohol: None known Prescription med abuse: None known Illicits: None known . Psychosocial History Patient was born in [place]. He met his (Brionna) when they were teenagers; they have now been for 62 years. They have 2 adult sons ( Donte and Adin). Donte, who is designated as the alternate health care surrogate, lives in [place]. Adin lives in [place]. 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 The patient and his enjoy events with their traveling club. . Spiritual/Cultural Factors Episcopal hailey . (Jud Law) Living Will: Copy in medical record Health Care Surrogate: Copy in medical record Date completed: October 15, 2004 Health Care Surrogate(s): Patient's (Brionna Richardson) is designated as the patient's healthcare surrogate decision maker; patient's son (Donte Richardson) is the alternate health care surrogate decision maker. . Documented care wishes: Living will completed 10/15/2004 is accessible in the patients EMR. It states that if Mr. Richardson had a terminal condition, an end-stage condition or was in a persistent vegetative state, and 2 physicians agreed there is no medical probability of his recovery from such condition, he would not want his dying to be artificially prolonged. The patient asked that he then be allowed to naturally with only the administration of medications and/or the performance of any medical procedures deemed necessary to provide him with comfort care order to alleviate pain. . Today's verbally stated goals: Patient has limited insight and judgment related to his current clinical condition due to his clinical condition-lethargy and dyspnea. . Family/friends goals: Patient's (Brionna) and son (Donte) are at the patient's bedside. The patient's is the designated HCS, and his son (Donte) is the alternate health care surrogate. Both state that the patient would not want CPR in the event that he went into cardiopulmonary arrest. The patient's states she and her have had multiple conversations about this. The patient completed a living will on February 14, 2005 which supports his 's statement today. Goals remain aggressive up to the point of cardiopulmonary resuscitation. . Ethical and Legal Issues No known ethical or legal issues impacting care at this time. . (Jud Law) Physical Exam Vital Signs Date Time Temp Pulse Resp B/P (MAP) Pulse Ox O2 Delivery O2 Flow Rate FiO2 04/15/17 10:45 94.5 70 20 90/58 (69) 95 04/15/17 08:34 71 20 70/29 (43) 91 81/55 (64) 04/15/17 08:12 95 Nasal Cannula 2.00 04/15/17 05:29 72 20 95/59 (71) 97 04/15/17 04:00 71 20 90/62 (71) 04/15/17 02:09 73 20 97/54 (68) 96 04/15/17 00:34 20 95/63 (74) 97 04/15/17 00:11 89.6 72 18 95/66 97 04/15/17 00:00 72 20 95/66 (76) 98 04/14/17 21:08 73 20 97/61 (73) 99 04/14/17 19:57 96.0 73 20 101/68 100 04/14/17 18:49 97.2 65 16 97/55 04/14/17 18:34 77 17 99/65 (76) 97 Nasal Cannula 2.00 04/14/17 18:34 97.5 65 16 99/65 04/14/17 18:00 71 18 97/67 (77) 97 Nasal Cannula 2.00 04/14/17 17:00 64 16 101/56 (71) 100 Nasal Cannula 2.00 04/14/17 16:00 97 Nasal Cannula 2.00 04/14/17 15:59 97.9 73 16 104/66 (79) 98 Nasal Cannula 2.00 04/14/17 15:59 97 Nasal Cannula 2.00 04/14/17 15:59 97.9 72 17 99/67 (78) 99 04/14/17 15:00 75 . , Exam CONSTITUTIONAL/GENERAL: This is a frail, elderly male patient who appears to be in [id number] respiratory distress. TUBES/LINES/DRAINS: PIV 1, Fischer catheter, nasal cannula SKIN: Lesion on face and scalp. Ecchymoses on upper extremities. Skin temperature appropriate. Not diaphoretic. HEAD: Atraumatic. EYES: Pupils equal and round and reactive. No scleral icterus. No injection or drainage. ENT: Hard of hearing. Nose without bleeding or purulent drainage. NECK: Trachea midline. Supple, nontender. No palpable thyroid enlargement or nodularity. CARDIOVASCULAR: Regular rate, paced rhythm RESPIRATORY/CHEST: Mild to moderate shortness of breath. Breath sounds diminished, crackles bilaterally. GASTROINTESTINAL: Abdomen soft, non-tender, nondistended. No guarding. Bowel sounds present. GENITOURINARY: Without palpable bladder distension. Fischer catheter in place. MUSCULOSKELETAL: Bilateral lower extremities with 3+ edema. No joint tenderness or effusion noted. No calf tenderness. No mottling or clubbing. LYMPHATICS: No palpable cervical or supraclavicular adenopathy. NEUROLOGICAL: Lethargic. Able to answer questions, follow commands. PSYCHIATRIC: No obvious anxiety/depression. no apparent hallucinations or other psychotic thought process. . (Jud Law) Diagnostic Tests Laboratory Laboratory Tests Test 04/14/17 16:20 04/14/17 17:50 04/14/17 22:59 04/15/17 07:21 White Blood Count 9.2 TH/MM3 (4.0-11.0) 8.9 TH/MM3 (4.0-11.0) Red Blood Count 2.45 MIL/MM3 (4.50-5.90) 2.48 MIL/MM3 (4.50-5.90) Hemoglobin 8.7 GM/DL (13.0-17.0) 8.6 GM/DL (13.0-17.0) 8.6 GM/DL (13.0-17.0) Hematocrit 25.4 % (39.0-51.0) 25.7 % (39.0-51.0) 25.0 % (39.0-51.0) Mean Corpuscular Volume 103.7 FL (80.0-100.0) 100.7 FL (80.0-100.0) Mean Corpuscular Hemoglobin 35.5 PG (27.0-34.0) 34.5 PG (27.0-34.0) Mean Corpuscular Hemoglobin Concent 34.2 % (32.0-36.0) 34.3 % (32.0-36.0) Red Cell Distribution Width 17.1 % (11.6-17.2) 17.2 % (11.6-17.2) Platelet Count 147 TH/MM3 (150-450) 133 TH/MM3 (150-450) Mean Platelet Volume 9.6 FL (7.0-11.0) 9.8 FL (7.0-11.0) Neutrophils (%) (Auto) 87.7 % (16.0-70.0) 89.5 % (16.0-70.0) Lymphocytes (%) (Auto) 3.7 % (9.0-44.0) 3.6 % (9.0-44.0) Monocytes (%) (Auto) 7.5 % (0.0-8.0) 6.1 % (0.0-8.0) Eosinophils (%) (Auto) 0.6 % (0.0-4.0) 0.5 % (0.0-4.0) Basophils (%) (Auto) 0.5 % (0.0-2.0) 0.3 % (0.0-2.0) Neutrophils # (Auto) 8.1 TH/MM3 (1.8-7.7) 8.0 TH/MM3 (1.8-7.7) Lymphocytes # (Auto) 0.3 TH/MM3 (1.0-4.8) 0.3 TH/MM3 (1.0-4.8) Monocytes # (Auto) 0.7 TH/MM3 (0-0.9) 0.5 TH/MM3 (0-0.9) Eosinophils # (Auto) 0.1 TH/MM3 (0-0.4) 0.0 TH/MM3 (0-0.4) Basophils # (Auto) 0.0 TH/MM3 (0-0.2) 0.0 TH/MM3 (0-0.2) CBC Comment DIFF FINAL DIFF FINAL Differential Comment Prothrombin Time 76.3 SEC (9.8-11.6) 28.8 SEC (9.8-11.6) Prothromb Time International Ratio 6.4 RATIO 2.5 RATIO Activated Partial Thromboplast Time 66.8 SEC (24.3-30.1) Blood Urea Nitrogen 83 MG/DL (7-18) 88 MG/DL (7-18) Creatinine 2.24 MG/DL (0.60-1.30) 2.24 MG/DL (0.60-1.30) Random Glucose 147 MG/DL (74-106) 89 MG/DL (74-106) Total Protein 6.6 GM/DL (6.4-8.2) Albumin 2.7 GM/DL (3.4-5.0) Calcium Level 9.3 MG/DL (8.5-10.1) 9.2 MG/DL (8.5-10.1) Magnesium Level 2.1 MG/DL (1.5-2.5) Alkaline Phosphatase 207 U/L (45-117) Aspartate Amino Transf (AST/SGOT) 37 U/L (15-37) Alanine Aminotransferase (ALT/SGPT) 31 U/L (12-78) Total Bilirubin 0.6 MG/DL (0.2-1.0) Sodium Level 137 MEQ/L (136-145) 138 MEQ/L (136-145) Potassium Level 4.6 MEQ/L (3.5-5.1) 5.0 MEQ/L (3.5-5.1) Chloride Level 99 MEQ/L (98-107) 101 MEQ/L (98-107) Carbon Dioxide Level 30.3 MEQ/L (21.0-32.0) 29.0 MEQ/L (21.0-32.0) Anion Gap 8 MEQ/L (5-15) 8 MEQ/L (5-15) Estimat Glomerular Filtration Rate 28 ML/MIN (>89) 28 ML/MIN (>89) Lactic Acid Level 2.2 mmol/L (0.4-2.0) 1.5 mmol/L (0.4-2.0) 1.3 mmol/L (0.4-2.0) B-Type Natriuretic Peptide 129 PG/ML (0-100) Urine Color DARK-RED (YELLW/STRAW) Urine Turbidity CLOUDY (CLEAR) Urine pH 5.5 (5.0-8.5) Urine Specific [place] 1.017 (1.002-1.035) Urine Protein 30 mg/dL (NEG-TRACE) Urine Glucose (UA) NEG mg/dL (NEG) Urine Ketones 10 mg/dL (NEG) Urine Occult Blood LARGE (NEG) Urine Nitrite NEG (NEG) Urine Bilirubin NEG (NEG) Urine Urobilinogen LESS THAN 2.0 MG/DL (LESS Urine Leukocyte Esterase LARGE (NEG) Urine RBC /hpf (0-3) Urine WBC /hpf (0-5) Microscopic Urinalysis Comment CULTURE INDICATED . (Jud Law) Result Diagram: 04/15/17 0721 04/15/17 0721 Microbiology Microbiology Date/Time Source Procedure Growth Status 04/14/17 16:25 Blood Peripheral Aerobic Blood Culture - Preliminary NO GROWTH IN 1 DAY Resulted 04/14/17 16:25 Blood Peripheral Anaerobic Blood Culture - Preliminary NO GROWTH IN 1 DAY Resulted 04/14/17 16:20 Blood Peripheral Aerobic Blood Culture - Preliminary NO GROWTH IN 1 DAY Resulted 04/14/17 16:20 Blood Peripheral Anaerobic Blood Culture - Preliminary NO GROWTH IN 1 DAY Resulted 04/14/17 17:50 Urine Clean Catch Urine Culture Pending Received . Imaging Last 72 hours Impressions Chest X-Ray 04/15/17 0000 Signed Impressions: Service Date/Time: March 14:05 - CONCLUSION: Cardiomegaly with bilateral pleural effusions and bibasilar infiltrates. Radiographic pattern suggestive of pulmonary edema. Bandar Santana Jr., MD Chest X-Ray 04/14/171605 Signed Impressions: Service Date/Time: Friday, April 14, 2017 16:17 - CONCLUSION: 1. Stable elevation of the left hemidiaphragm. 2. Interval development of mild left lower lobe airspace disease and likely trace left pleural effusion. Findings are concerning for developing pneumonia or aspiration in the appropriate clinical setting. Wilbur Joyce MD Abdomen/Pelvis CT 04/14/171605 Signed Impressions: Service Date/Time: Friday, April 14, 2017 17:22 - CONCLUSION: No acute intra-abdominal process is identified. Axel Lazo MD . (Jud Law) Patient/Family Conference Present at Family Conference: Met with patient's and son at patient's bedside. Also present, JANAK Ramirez. . Family Conference Location: Bedside Issues Discussed: * Palliative care role, purpose, approach * Additional medical, psychosocial, and spiritual history * Patients general health, functional status, and cognitive changes in the months leading up to the current hospitalization * Patient/family understanding of the current medical problems * Patient/family understanding of prognosis * Patients goals of care as best understood from advance directives and/or conversations and/or values * Current medical treatment options and benefits/burdens of those options * Likely scenarios comparing ongoing aggressive care with a transition to comfort measures only * Questions answered to the best of my ability * Palliative care contact information provided . (Jud Law) Assessment and Plan Disease Oriented Problem List: (1) Wnyyz-in-[id number] kidney injury (2) Pacemaker (3) Hard of hearing (4) COPD (chronic obstructive pulmonary disease) (5) Hematuria (6) GI bleed (7) CHF (congestive heart failure) (8) PNA (pneumonia) (9) Ischemic cardiomyopathy (10) Supratherapeutic INR (11) Lactic acidosis (12) Thrombocytopenia (13) Afib Symptom Scale: (1) Debility 0-10 Scale: Unable to quantify (2) Dyspnea 0-10 Scale: Unable to quantify (3) Decrease in appetite 0-10 Scale: Unable to quantify Pertinent Non-Medical Issues Psychosocial:Patient was born in [place]. He met his (Brionna) when they were teenagers; they have now been for 62 years. They have 2 adult sons (Donte and Adin). Donte, who is designated as the alternate health care surrogate, lives in [place]. Adin lives in [place]. 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 The patient and his enjoy events with their traveling club. Spiritual: Episcopal hailey Legal: Patient's (Brionna Richardson) is designated as the patient's healthcare surrogate decision maker; patient's son (Donte Richardson) is the alternate health care surrogate decision maker. Ethical issues impacting care: No known ethical issues impacting care at this time. . Important Contacts Brionna Richardson, spouse/[facility]: [phone] Donte Richardson, son/alternate HCS: [phone] Chuy Richardson, family/other: [phone] . Prognosis Patient is an 86 year old male who has experienced a significant decline since a fall in February, at which time he was hospitalized with multiple fractures and intrapelvic retroperitoneal hematoma. He was rehospitalized on with a supratherapeutic INR, acute HAYDE and possible GI bleed. He has become significantly deconditioned despite ongoing rehabilitation with lethargy and poor nutritional intake. Patient's prognosis is guarded; he is at high risk for ongoing decline. . Code Status: No Code Plan . * NO CODE-DNR/DNI * Goals are aggressive up to the point of cardiopulmonary resuscitation * Decision-making: Patient has limited insight and judgment related to his current clinical condition due to his clinical condition-lethargy and dyspnea. Patient's (Brionna Richardson) is designated as the patient's healthcare surrogate decision maker; patient's son (Donte Richardson) is the alternate health care surrogate decision maker. Living will completed 10/15/2004 is accessible in the patients EMR. * Palliative care met with the patient's (Brionna) and son (Donte) are at the patient's bedside, contact information provided. Both state that the patient would not want CPR in the event that he went into cardiopulmonary arrest. The patient's states she and her have had multiple conversations about this. The patient completed a living will on February 14, 2005 which supports his 's statement today. * Discussed patient with Dr. Talbot, patient's nurse (Levy) and speech therapy. * Symptom management - dyspnea: Patient complaining of mild to moderate dyspnea , oxygen saturation 94% on 2L via nasal cannula. Dyspnea significantly increases with conversation. Follow-up chest x-ray this afternoon showing cardiomegaly with bilateral pleural effusions and bibasilar infiltrates suggestive of pulmonary edema. Patient received 0.5 mg of Bumex IV 1. No further recommendations at this time. * Symptom management - decreased appetite: Patient c/o decreased appetite with poor nutritional intake. Consult for swallow evaluation temporarily on hold secondary to dyspnea. Patient is not stable for any endoscopic evaluation, nor does the family wish to pursue this. * Symptom management - debility: Patient has experienced an acute decline since falling in 02/2017 at which time the patient was hospitalized x 5 days for management fractures and intrapelvic retroperitoneal hematoma. He was discharged to [facility] inpatient rehabilitation for 3 weeks and then transferred to a shelter facility. Patient is now rehospitalized; it is unclear if the patient will be a candidate for further rehab in the future. * Palliative care will continue to follow this patient throughout his hospitalization to establish trust, assist with symptom management and clarification of medical treatment goals. . (Jud Law) Thank you for the opportunity to participate in the care of Mr. Richardson. . (Jud Law) Collaborating MD Comments To help prompt me to consider important information that might be impacting today's encounter and assessment, information from prior notes written by myself or my colleagues may have been "brought forward" into today's note. My signature on this note, however, is an attestation that I personally performed the exam, history, and/or decision-making noted today, and, unless otherwise indicated, the interactions with patient, family, and staff as well as the review of records all occurred today. I also attest that the listed assessment and stated plan reflect my best clinical judgment today based on the combination of historical information, prior notes, and today's exam/ interactions. When time spent is documented, it refers only to time spent today by the signer, or if indicated, combined time spent today by collaborating physician/nurse practitioner. . (Jud Law) Collaborating MD Comments Chart reviewed. Case discussed with palliative care BINDING END STITCHER. Above BINDING END STITCHER note reviewed and I concur. . (Melecio Ku MD) Jud Law Apr 15, 2017 12:14 Melecio Ku MD Apr 15, 2017 17:40
--- NOTE | 2017-04-15 12:52 | PD.CONS ---
HPI History of Present Illness This is a 86 year old male who was recently hospitalized in February for a fall where he sustained a right acetabular fracture, right rib fracture, and intrapelvic hematoma after a fall. He was evaluated by orthopaedic surgery, who recommended non-operative management of his fractures. He was then transferred to [place] for inpatient rehabilitation from 03/15- 03/31 and later transferred to the [facility]. He has a history of atrial fibrillation, ischemic cardiomyopathy, COPD, hypothyroidism, hypertension, coronary artery disease and hyperlipidemia and is on Coumadin for anticoagulation. He was brought to the emergency room for evaluation of edema in his left upper extremity and bilateral lower extremities and hematuria. He was noted to have anemia and Hemoccult was checked and was positive. His last H /H prior to this admission was 9.4/29.0 on 03/29/17. On admission, he was noted to have a H/H of 8.7/25.4. Of note, his INR was also noted to be at 6.4. He was given 2 units of FFP and Vitamin K 5mg subcutaneous x 1. CT scan abdomen and pelvis (04/14/17) revealed no acute intra-abdominal process identified. The patient is extremely lethargic, with shallow, mildly labored breathing. He has had issues with constipation, but denies any nausea, vomiting, abdominal pain, heartburn, reflux, melena, or hematochezia. He has had a decreased appetite and has not been eating as much. He last had a colonoscopy 5 years ago. (Loan Patel) PFSH Past Medical History Hypertension CHF Coronary artery disease Atrial fibrillation on anticoagulation therapy Ischemic cardiomyopathy s/p pacemaker COPD Hypothyroidism Hyperlipidemia EKUK Chronic kidney disease, Stage III Recent fall with sustained a right acetabular fracture, right rib fracture, and intrapelvic hematoma Sacral decubitus ulcer Past Surgical History Pacemaker Colonoscopy (Loan Patel) Coded Allergies: digoxin (Verified Adverse Reaction, Unknown, Drowsiness, 03/14/17) Medications Allergies Coded Allergies Type Severity Reaction Last Updated Verified digoxin Adverse Reaction Unknown Drowsiness 03/14/17 Yes Active Scripts Medications Dose Route/Sig Max Daily Dose Days Date Category Dose Instructions Doxycycline Hyclate 100 Mg Cap 100 Mg PO BID 04/14/17 Reported Ceftin (Cefuroxime Axetil) 250 Mg Tab 500 Mg PO BID 04/14/17 Reported Duoneb (Ipratropium-Albuterol Neb) 0.5-2.5 Mg/3 Ml Neb 1 Nebule INH Q4HR NEB 04/14/17 Reported Senna Plus 8.6-50 mg (Sennosides-Docusate Sodium) 8.6 Mg-50 Mg Tab 1 Tab PO BID 03/31/17 Rx Coumadin (Warfarin) 2 Mg Tab 2 Mg PO DAILY 03/31/17 Rx Resume and monitor for any signs of bleeding. INR between 2-3 Thera/Beta-Carotene (Multiple Vitamin) 1 Tab Tab 1 Tab PO DAILY 03/31/17 Rx Santyl (Collagenase) 250 Unit/Gram Oin 1 Applic TOPICAL DAILY 30 03/31/17 Rx Pantoprazole (Pantoprazole Sodium) 40 Mg Tab 40 Mg PO DAILY 03/31/17 Rx [place] [facility] Nasal (Sodium Chloride) 0.65% [place] 2 [place] EACH NARE QID 30 03/31/17 Rx Furosemide 20 Mg Tab 20 Mg PO DAILY 03/31/17 Rx Flomax (Tamsulosin HCl) 0.4 Mg Cap 0.4 Mg PO HS 03/31/17 Rx Spironolactone 50 Mg Tab 50 Mg PO DAILY 03/31/17 Rx Simvastatin 20 Mg Tab 20 Mg PO HS 03/31/17 Rx Niacin 500 Mg Tab 500 Mg PO DAILY 03/31/17 Rx Levothyroxine (Levothyroxine Sodium) 75 Mcg Tab 75 Mcg PO DAILY 03/31/17 Rx Calcitriol 0.25 Mcg Cap 0.25 Mcg PO DAILY 03/31/17 Rx Amiodarone (Amiodarone HCl) 200 Mg Tab 100 Mg PO DAILY 03/31/17 Rx Pantoprazole (Pantoprazole Sodium) 40 Mg Tab 40 Mg PO Q24H 7 03/12/17 Rx Senna Plus 8.6-50 mg (Sennosides-Docusate Sodium) 8.6 Mg-50 Mg Tab 2 Tab PO BID 15 03/12/17 Rx Eq Milk of Magnesia (Magnesium Hydroxide) 400 Mg/5 Ml Elina 30 Ml PO HS 15 03/12/17 Rx Lasix (Furosemide) 40 Mg Tab 20 Mg PO BID 03/11/17 Reported Family History Mother had DM Father from ruptured aneurysm Social History No use of tobacco (ever), ETOH, or illicit drug use. (Loan Patel) Review of Systems Constitutional: COMPLAINS OF: Fatigue, Change in appetite Respiratory: COMPLAINS OF: Cough, Shortness of breath Cardiovascular: COMPLAINS OF: Lower Extremity Edema, DENIES: Chest pain Gastrointestinal: COMPLAINS OF: Constipation, Anorexia, DENIES: Abdominal pain , Black stools, Bloody stools, Diarrhea, Nausea, Vomiting, Swelling of Abdomen, Heartburn, Hematemesis Musculoskeletal: COMPLAINS OF: Joint pain, Back pain Hematologic/lymphatic: COMPLAINS OF: Bruising ROS Pt poor historian (Loan Patel) GI Exam Vitals I&O Vital Signs Date Time Temp Pulse Resp B/P (MAP) Pulse Ox O2 Delivery O2 Flow Rate FiO2 04/15/17 12:16 96.4 71 20 84/57 (66) 95 04/15/17 10:45 94.5 70 20 90/58 (69) 95 04/15/17 08:34 71 20 70/29 (43) 91 81/55 (64) 04/15/17 08:12 95 Nasal Cannula 2.00 04/15/17 05:29 72 20 95/59 (71) 97 04/15/17 04:00 71 20 90/62 (71) 04/15/17 02:09 73 20 97/54 (68) 96 04/15/17 00:34 20 95/63 (74) 97 04/15/17 00:11 89.6 72 18 95/66 97 04/15/17 00:00 72 20 95/66 (76) 98 04/14/17 21:08 73 20 97/61 (73) 99 04/14/17 19:57 96.0 73 20 101/68 100 04/14/17 18:49 97.2 65 16 97/55 04/14/17 18:34 77 17 99/65 (76) 97 Nasal Cannula 2.00 04/14/17 18:34 97.5 65 16 99/65 04/14/17 18:00 71 18 97/67 (77) 97 Nasal Cannula 2.00 04/14/17 17:00 64 16 101/56 (71) 100 Nasal Cannula 2.00 04/14/17 16:00 97 Nasal Cannula 2.00 04/14/17 15:59 97.9 73 16 104/66 (79) 98 Nasal Cannula 2.00 04/14/17 15:59 97 Nasal Cannula 2.00 04/14/17 15:59 97.9 72 17 99/67 (78) 99 04/14/17 15:00 75 I/O 04/14/17 04/14/17 04/14/17 04/15/17 04/15/17 04/15/17 07:00 15:00 23:00 07:00 15:00 23:00 Intake Total 376 ml 571 ml Output Total 350 ml Balance 376 ml 221 ml IV Total 350 ml FFP 376 ml 211 ml Blood Product IV Normal Saline Flush 10 ml Output Urine Total 350 ml # Voids 0 Imaging Last Impressions Chest X-Ray 04/14/17 1606 Signed Impressions: Service Date/Time: Friday, April 14, 2017 16:17 - CONCLUSION: 1. Stable elevation of the left hemidiaphragm. 2. Interval development of mild left lower lobe airspace disease and likely trace left pleural effusion. Findings are concerning for developing pneumonia or aspiration in the appropriate clinical setting. Wilbur Joyce MD Abdomen/Pelvis CT 04/14/17 1606 Signed Impressions: Service Date/Time: Friday, April 14, 2017 17:22 - CONCLUSION: No acute intra-abdominal process is identified. Axel Lazo MD Laboratory Test 04/14/17 16:20 04/14/17 17:50 04/14/17 22:59 04/15/17 07:21 White Blood Count 9.2 TH/MM3 8.9 TH/MM3 Red Blood Count 2.45 MIL/MM3 2.48 MIL/MM3 Hemoglobin 8.7 GM/DL 8.6 GM/DL 8.6 GM/DL Hematocrit 25.4 % 25.7 % 25.0 % Mean Corpuscular Volume 103.7 FL 100.7 FL Mean Corpuscular Hemoglobin 35.5 PG 34.5 PG Mean Corpuscular Hemoglobin Concent 34.2 % 34.3 % Red Cell Distribution Width 17.1 % 17.2 % Platelet Count 147 TH/MM3 133 TH/MM3 Mean Platelet Volume 9.6 FL 9.8 FL Neutrophils (%) (Auto) 87.7 % 89.5 % Lymphocytes (%) (Auto) 3.7 % 3.6 % Monocytes (%) (Auto) 7.5 % 6.1 % Eosinophils (%) (Auto) 0.6 % 0.5 % Basophils (%) (Auto) 0.5 % 0.3 % Neutrophils # (Auto) 8.1 TH/MM3 8.0 TH/MM3 Lymphocytes # (Auto) 0.3 TH/MM3 0.3 TH/MM3 Monocytes # (Auto) 0.7 TH/MM3 0.5 TH/MM3 Eosinophils # (Auto) 0.1 TH/MM3 0.0 TH/MM3 Basophils # (Auto) 0.0 TH/MM3 0.0 TH/MM3 CBC Comment DIFF FINAL DIFF FINAL Differential Comment Prothrombin Time 76.3 SEC 28.8 SEC Prothromb Time International Ratio 6.4 RATIO 2.5 RATIO Activated Partial Thromboplast Time 66.8 SEC Blood Urea Nitrogen 83 MG/DL 88 MG/DL Creatinine 2.24 MG/DL 2.24 MG/DL Random Glucose 147 MG/DL 89 MG/DL Total Protein 6.6 GM/DL Albumin 2.7 GM/DL Calcium Level 9.3 MG/DL 9.2 MG/DL Magnesium Level 2.1 MG/DL Alkaline Phosphatase 207 U/L Aspartate Amino Transf (AST/SGOT) 37 U/L Alanine Aminotransferase (ALT/SGPT) 31 U/L Total Bilirubin 0.6 MG/DL Sodium Level 137 MEQ/L 138 MEQ/L Potassium Level 4.6 MEQ/L 5.0 MEQ/L Chloride Level 99 MEQ/L 101 MEQ/L Carbon Dioxide Level 30.3 MEQ/L 29.0 MEQ/L Anion Gap 8 MEQ/L 8 MEQ/L Estimat Glomerular Filtration Rate 28 ML/MIN 28 ML/MIN Lactic Acid Level 2.2 mmol/L 1.5 mmol/L 1.3 mmol/L B-Type Natriuretic Peptide 129 PG/ML Urine Color DARK-RED Urine Turbidity CLOUDY Urine pH 5.5 Urine Specific [place] 1.017 Urine Protein 30 mg/dL Urine Glucose (UA) NEG mg/dL Urine Ketones 10 mg/dL Urine Occult Blood LARGE Urine Nitrite NEG Urine Bilirubin NEG Urine Urobilinogen LESS THAN 2.0 MG/DL Urine Leukocyte Esterase LARGE Urine RBC /hpf Urine WBC /hpf Microscopic Urinalysis Comment CULTURE INDICATED Date/Time Source Procedure Growth Status 04/14/17 16:25 Blood Peripheral Aerobic Blood Culture - Preliminary NO GROWTH IN 1 DAY Resulted 04/14/17 16:25 Blood Peripheral Anaerobic Blood Culture - Preliminary NO GROWTH IN 1 DAY Resulted 04/14/17 17:50 Urine Clean Catch Urine Culture Pending Received Physical Examination HEENT: Normocephalic; atraumatic; no jaundice. CHEST: Shallow/even, mildly labored, crackles bilaterally CARDIAC: Irregular ABDOMEN: Soft, nondistended, nontender; no hepatosplenomegaly; bowel sounds are present in all four quadrants. EXTREMITIES: LUE, BLE edema. OUTREACH CLINICIAN: Lethargic, EKUK. Follows commands (Loan Patel) Assessment and Plan Plan ASSESSMENT: - Hemoccult (+) Stool. CT scan abdomen and pelvis (04/14/17) revealed no acute intra-abdominal process identified. Pt denies any GI symptoms other than decreased appetite and constipation. No n/v, abdominal pain, melena, or hematochezia. Last colonoscopy 5 years ago. No obvious active bleeding. Of note, his INR was 6.4 on admission. Pt appears weak and frail. His respirations are shallow and he has bibasilar crackles. Would not recommend EGD/Colonoscopy at this time unless active bleeding. Discussed with at bedside and she is not interested in any invasive procedures. - Anemia, likely multifactorial. recent pelvic hematoma, CT as above. His last H/H prior to this admission was 9.4/29.0 on 03/29/17. On admission, he was noted to have a H/H of 8.7/25.4. - Constipation. Add Miralax. - Anorexia, malnutrition. ST for swallow evaluation, if passes add ensure - Coagulopathy, Coumadin toxicity. INR 6.4 on admission, S/P 2 units of FFP and Vitamin K 5mg subcutaneous x 1. - CHF, Afib, Ischemic cardiomyopathy, CAD. Per attending. - COPD/PNA. Azithromycin, Cefepime, Nebs - Hematuria. Likely related to coagulopathy. - Recent hospitalization in February for a fall where he sustained a right acetabular fracture, right rib fracture, and intrapelvic hematoma- non-operative management was recommended by ortho. - Hypotension with hx of htn, hypothyroidism,acute on chronic kidney disease PLAN: - ST for swallow evaluation - If passes swallow evaluation, add ensure - Change pepcid to protonix 40mg IV daily - Monitor HH - Transfuse as necessary - Pt is not stable for any endoscopic evaluation, nor does the family wish to pursue this - Pt seen and examined by Dr. Coy and myself and this note is written on his behalf (Loan Patel) Plan Patient was seen and examined, agree with the above note, patient is not stable for any endoscopy at this time, we will see what the swallow eval show, overall poor prognosis (Diana Coy MD) Loan Patel Apr 15, 2017 12:52 Diana Coy MD Apr 15, 2017 17:49
[2017-04-15] MEDS: PANTOPRAZOLE SODIUM 40 MG VIAL IV PUSH SCH (13:00)
[2017-04-15] MEDS ORDERED: BUMETANIDE INJ 1 MG/4 ML VIAL IV PUSH ONE (13:15)
--- NOTE | 2017-04-15 13:43 | RADRPT ---
EXAM DATE/TIME: 04/15/2017 14:05 [facility] COMPARISON: CHEST SINGLE AP, April 14, 2017, 16:17. INDICATIONS : Dyspnea. MEDICAL HISTORY : Hypertension. Chronic obstructive pulmonary disease. SURGICAL HISTORY : Pacemaker. ENCOUNTER: Subsequent ACUITY: 2 days PAIN SCORE: 0/10 LOCATION: chest FINDINGS: 2 portable frontal views of the chest show significant cardiomegaly. Elevation left hemidiaphragm. Bi basilar consolidations. Tiny bilateral pleural effusions. Dual-lead pacing device on the left. CONCLUSION: Cardiomegaly with bilateral pleural effusions and bibasilar infiltrates. Radiographic pattern suggest lamar of pulmonary edema. Bandar Santana Jr., MD on April 15, 2017 at 13:39 Board Certified Radiologist. This report was verified electronically.
--- NOTE | 2017-04-15 14:25 | HHI.PR ---
Subjective Remarks Patient seen at ~1000 and again at ~1300. Received call from nurse that patient has low BP and they are unable to obtain an accurate temperature. Patient is sleeping upon my initial arrival to his room. He awakens and states that he is very tired. Denies chest pain or dyspnea. Upon reexamination after noon, patient complained of worsening shortness of breath. Blood pressure did improve somewhat with IV fluids. Patient continues to have very little urine output. Objective Vitals Vital Signs Date Time Temp Pulse Resp B/P (MAP) Pulse Ox O2 Delivery O2 Flow Rate FiO2 04/15/17 12:52 74 04/15/17 12:16 96.4 71 20 84/57 (66) 95 04/15/17 10:45 94.5 70 20 90/58 (69) 95 04/15/17 08:34 71 20 70/29 (43) 91 81/55 (64) 04/15/17 08:12 95 Nasal Cannula 2.00 04/15/17 05:29 72 20 95/59 (71) 97 04/15/17 04:00 71 20 90/62 (71) 04/15/17 02:09 73 20 97/54 (68) 96 04/15/17 00:34 20 95/63 (74) 97 04/15/17 00:11 89.6 72 18 95/66 97 04/15/17 00:00 72 20 95/66 (76) 98 04/14/17 21:08 73 20 97/61 (73) 99 04/14/17 19:57 96.0 73 20 101/68 100 04/14/17 18:49 97.2 65 16 97/55 04/14/17 18:34 77 17 99/65 (76) 97 Nasal Cannula 2.00 04/14/17 18:34 97.5 65 16 99/65 04/14/17 18:00 71 18 97/67 (77) 97 Nasal Cannula 2.00 04/14/17 17:00 64 16 101/56 (71) 100 Nasal Cannula 2.00 04/14/17 16:00 97 Nasal Cannula 2.00 04/14/17 15:59 97.9 73 16 104/66 (79) 98 Nasal Cannula 2.00 04/14/17 15:59 97 Nasal Cannula 2.00 04/14/17 15:59 97.9 72 17 99/67 (78) 99 04/14/17 15:00 75 I/O 04/14/17 04/14/17 04/14/17 04/15/17 04/15/17 04/15/17 07:00 15:00 23:00 07:00 15:00 23:00 Intake Total 376 ml 571 ml Output Total 350 ml Balance 376 ml 221 ml IV Total 350 ml FFP 376 ml 211 ml Blood Product IV Normal Saline Flush 10 ml Output Urine Total 350 ml # Voids 0 Result Diagram: 04/15/17 0721 04/15/17 0721 Imaging Last Impressions Chest X-Ray 04/15/17 0000 Signed Impressions: Service Date/Time: March 14:05 - CONCLUSION: Cardiomegaly with bilateral pleural effusions and bibasilar infiltrates. Radiographic pattern suggestive of pulmonary edema. Bandar Santana Jr., MD Abdomen/Pelvis CT 04/14/17 1606 Signed Impressions: Service Date/Time: Friday, April 14, 2017 17:22 - CONCLUSION: No acute intra-abdominal process is identified. Axel Lazo MD Objective Remarks General: Elderly male in no acute distress. Heart: Regular rate and rhythm. No murmur. Lungs: Clear to auscultation bilaterally. No wheezes, rales, or rhonchi. Breathing is nonlabored. Abdomen: Soft, nontender, nondistended. Extremities: 3+ bilateral lower extremity edema. 2+ edema of the left arm. Psych: Sleeping, but awakens and answers questions. Upon reexamination this afternoon, patient is much more alert. Crackles are noted in both lung bases. Edema is unchanged. Procedures None Urinary Catheter: Yes Assessment to: Continue Fischer insert reason: Measure Accurate Output Vascular Central Line Catheter: No A/P Problem List: (1) GI bleed ICD Code: K92.2 - Gastrointestinal hemorrhage, unspecified Status: Acute (2) Hypotension ICD Code: I95.9 - Hypotension, unspecified (3) Supratherapeutic INR ICD Code: R79.1 - Abnormal coagulation profile Status: Acute (4) Thrombocytopenia ICD Code: D69.6 - Thrombocytopenia, unspecified (5) HAYDE (acute kidney injury) ICD Code: N17.9 - Acute kidney failure, unspecified (6) Lactic acidosis ICD Code: E87.2 - Acidosis (7) PNA (pneumonia) ICD Code: J18.9 - Pneumonia, unspecified organism (8) Afib ICD Code: I48.91 - Unspecified atrial fibrillation Status: Chronic (9) CHF (congestive heart failure) ICD Code: I50.9 - Heart failure, unspecified (10) Sacral decubitus ulcer ICD Code: L89.159 - Pressure ulcer of sacral region, unspecified stage Assessment and Plan 1. GI bleed: Hemoccult-positive in ER. Patient is on Coumadin for history of atrial fibrillation and INR is supratherapeutic. Coumadin on hold. Appreciate GI recommendations. Not felt to be stable enough for endoscopy. 2. Acute exacerbation of chronic systolic congestive heart failure: Consult patient's supervisor dials. Will need to be cautious with IV fluids. Strict intake/ output. 3. Hypotension: Likely secondary to hypovolemia. Blood pressure did improve with IV fluids, however patient is developing symptoms of fluid overload. Monitor blood pressure closely. 4. Acute kidney injury: Creatinine remained elevated. Has been receiving IV fluids today. Fluids none discontinued secondary to fluid overload. Monitor BUN , creatinine. Consult nephrology. 5. Pneumonia: Continue antibiotics, supplemental oxygen, bronchodilators. 6. Atrial fibrillation, chronic: Rate controlled. 7. Decubitus ulcer, present on admission: Wound care consult requested. 8. Lactic acidosis: Resolved. 9. DVT prophylaxis: ARIANNA Howard. Avoid chemical prophylaxis secondary to GI bleed, supratherapeutic INR. 10. Appreciate palliative care consultation. CODE STATUS now DO NOT RESUSCITATE. Problem Qualifiers (1) GI bleed: Qualified Codes: K92.2 - Gastrointestinal hemorrhage, unspecified Campbell Talbot MD Apr 15, 2017 14:25
--- NOTE | 2017-04-15 14:55 | EKG ---
Date Performed: 04/14/2017 Time Performed: 16:31:01 PTAGE: 86 years EKG: AV sequential pacing with occasional tracking of underlying atrial activity Since the prior tracing the patient is now showing AV sequential pacing. The PREVIOUS TRACING appeared to show atrial fibrillation with the device likely mode switch ed. Clinical correlation and interrogation of the device is recommended. PREVIOUS TRACIN03/10/2017 22.33 DOCTOR: Mirian Jones Interpretating Date/Time 04/15/2017 14:51:49
--- NOTE | 2017-04-15 17:05 | PD.WCN.NOT ---
Wound Consult Description: Received consult from Doctor Carter for wound management of sacral wound Communicated with: CASPER mckeon and Call placed to Doctor Talbot for orders Recommendation: 1.Please cleanse wound with normal saline, pack wound with Dakin's 0.125% or 1/ 4 strength moistened gauze and cover with dry 4x4 gauze pads and ABD pad, secure dressings with tape and change dressing BID. Please apply skin prep to periwound and before securing dressing with tape. 2.Obtain Vest airapy bed or if not available please order K-4 bed from [employer]. 3. Please turn patient every 2 hours and PRN for comfort and to offload pressure from sacral area Additional Information: Patient seen on [address] [place] [address] for wound management of sacral wound. Turned patient to R side with the moderate assistance of Levy mckeon and journalists and other writers. Removed ABD pad dressing in place to reveal sacral stage IV pressure injury. Wound bed presents with ~30% yellow loosely adherent slough, ~20% tendon ~10% facia, and ~ 40% red non granulation tissue. Wound measures 8.2cm x 5 cm x ~2.8 cm Undermining is assessed between 9 and 3 o'clock deepest at 12 o'clock 2.9cm. Periwound is noted with induration between 2 and 9 o'clock with blanchable erythema that is circumferential and extends ~1cm from wound bed. Wound has well defined, uneven and unattached wound margins that are thickened between 3 and 9 o'clock.Wound drainage is minimal to moderate and sero-sanguinous with foul odor. Cleansed wound with normal saline, packed wound with Maxorb II ( Calcium alginate) dressing and covered with ABD pad secured with medifix tape. Sprayed skin periwound with skin prep before applying adhesive to skin. Wound culture is recommended due to foul odor,and periwound induration and erythema. Zina Buckley [facility] Apr 15, 2017 17:05
[2017-04-15] MEDS: ALBUMIN 25% INJ 100 ML IV SCH (18:02)
--- NOTE | 2017-04-15 19:41 | MB ---
cc: EVERARDO ALMONTE MD DATE OF CONSULTATION 04/15/17 REASON FOR CONSULTATION Chronic kidney disease, acute kidney injury and elevated BUN and creatinine. HISTORY OF PRESENT ILLNESS This is an 86-year-old male with a past medical history of chronic kidney disease, history of suprapubic catheter, congestive heart failure, atrial fibrillation, history of GI bleeding, chronic obstructive pulmonary disease. He was transferred from the long term because of increased swelling of the leg and decreased urine output with hematuria. I was called to see the patient because of elevated BUN and creatinine. The patient has a history of chronic kidney disease and, according to , he has been following with Dr. Cooper and the last time he was seen by him was in September. The patient was found to have creatinine of 2.2 here yesterday and today it is almost the same. Previously, he had creatinine of 1.3 to 1.4 most of the time and his urine output has been decreased and he has hematuria. The patient has suprapubic catheter. He was on Coumadin and it was found that his INR was 6.4 during this admission. Most of the history was given by the patient's and son who were present at the bedside. According to them, the patient has not been eating well since yesterday, but before that he was eating adequate amount. There is no history of nausea, vomiting or diarrhea. He was found to have decreased urine output with increased swelling of his legs and worsening shortness of breath. Here patient is diagnosed with pneumonia and started on antibiotics. He was on IV fluid which has been stopped this morning and he was on Lasix also which is also on hold. PAST MEDICAL HISTORY 1. Atrial fibrillation, 2. Hypertension, 3. Ischemic heart disease, 4. Chronic obstructive pulmonary disease, 5. Chronic kidney disease. PAST SURGICAL HISTORY History of pacemaker placement. REVIEW OF SYSTEMS The patient has mild shortness of breath, has generalized edema especially in his legs. Today he has decreased appetite and not eating well. He has shortness of breath with mild cough. There is no chest pain. Denies any abdominal pain, has increased swelling of the legs. SOCIAL HISTORY The patient is . There is no history of smoking or alcoholism. FAMILY HISTORY Noncontributory. ALLERGIES DIGOXIN MEDICATIONS Currently on 1. Jodie-Colace 1 tablet b.i.d. 2. Amiodarone 100 mg once a day. 3. Calcitriol 0.25 mcg daily. 4. Niacin 500 mg once a day. 5. Protonix 40 mg daily. 6. Synthroid 75 mcg daily. 7. Flomax 0.4 mg q.h.s. 8. Pravachol 40 mg q.h.s. 9. Cefepime 2 grams q. 24-hour. 10. Azithromycin 5 mg q. 24-hour. 11. Zofran as needed. 12. DuoNeb as needed. PHYSICAL EXAMINATION GENERAL: The patient is awake, alert. He is in mild respiratory distress. VITAL SIGNS: His last blood pressure is 83/57, temperature 96.4, oxygen saturation 92-97%. HEENT: Pupils are mid constricted. Nonicteric sclerae. Conjunctivae pale. NECK: Supple. JVD slightly elevated. LUNGS: The patient has bilateral decreased air entry with basilar rales and scattered wheezing. HEART: S1, S2, irregular rhythm. ABDOMEN: Distended, soft, lax. There is no tenderness. EXTREMITIES: Bilateral 2+ edema in the legs LABORATORY DATA WBC count is 8.9, hemoglobin 8.6, platelet count of 133. Sodium is 138, potassium 5.0, chloride 101, bicarb 29, BUN 88, creatinine 2.24, INR is 2.5. Urinalysis showing protein of 30, occult blood with large leukocyte esterase. Cultures are all pending. IMAGING STUDIES The patient had chest x-ray done which shows that he has cardiomegaly with pleural effusion, basilar infiltrate with some pulmonary edema. CT scan of the abdomen and pelvis was done without IV contrast and showed that the kidneys have no evidence of hydronephrosis and right renal cyst. No acute intra-abdominal process identified. ASSESSMENT/PLAN 1. Chronic kidney disease with acute kidney injury 2. Edema and fluid overload status. 3. Hypotension. 4. Pneumonia. 5. Urinary tract infection. 6. COPD The patient has acute kidney injury and also has hematuria. The hematuria possibly related to high INR and the urine output has decreased. The BUN and creatinine from yesterday to today is almost the same. Potassium is normal. There is no metabolic acidosis. The patient feels still hypotensive. Most likely, the acute kidney injury is because of hypotension and ATN from hypotension or the infection. He was on IV fluid which has been stopped. I will check the urine sodium osmolality, urine for eosinophils and give him some IV albumin which probably will help with the blood pressure to some extent. Hopefully, we will have some ___. If he does not pass much urine then possibly he will need dialysis and I will discuss this with the family. Thank you for the consultation. I will follow the patient while he is in the hospital. MD BIB Prasad/ /5:04 PM /7:13 PM
[2017-04-15] MEDS: PRAVASTATIN SOD 40 MG TAB PO SCH (21:00)
[2017-04-15] MEDS: TAMSULOSIN HCL 0.4 MG CAP PO SCH (21:00)
--- NOTE | 2017-04-15 21:31 | PD.CONS ---
HPI Service Cardiology Consult Requested By Deysi Burris Reason for Consult CHF, Afib Primary Care Physician Axel Patton MD History of Present Illness He is a very nice 76-year-old gentleman, well known to me, with PMH of HTN, CAD , A. fib on Coumadin and COPD recently sustained rib fracture, who was sent to ER from [facility] for evaluation of LE edema and hematuria through Fischer. During my interview, he was lethargic, unable to obtain info from patient. following info obtained for chart. Recently at [facility] 03/15- after admit for fall w/ Right Acetabular Fx, Right Rib Fx and Intrapelvic Retroperitoneal Hematoma, s/p eval by Dr. Sherman w/ non-operative management, s/ p eval by Dr. Hairston, Echo 03/11/17 w/ EF 50-55%, continued on Lasix and Aldactone for anasarca, Coumadin on hold secondary to pelvic hematoma, however Coumadin resumed at the time of d/c as bleeding controlled and Hgb stable. Episode of urinary retention/hematuria during visit, s/p Fischer placement and removal at the time of d/c, unclear when Fischer re-inserted. On arrival to ER, BP 99/67, HR 72, O2 sat 99% on 2L NC, Afebrile. Hemoglobin 8.7, previously 9.4 on 03/29/17. Platelets 147, previously 419 on 03/29/17. Creatinine 2.24, was 1.27 on 03/26/17. Lactic Acid 2.2. BNP 129. INR 6.4. CXR w/ development of mild left lower lobe airspace disease, S/p Zithro/Cefepime in ER in addition to 2u FFP and Vitamin K. Hemoccult + on exam. Review of Systems ROS Limitations: Poor Historian, Other (lethargic) Past Family Social History Allergies: Coded Allergies: digoxin (Verified Adverse Reaction, Unknown, Drowsiness, 03/14/17) Past Medical History HTN, CAD, A. fib on Coumadin and COPD Past Surgical History Pacemaker Reported Medications Reported Meds & Active Scripts Active Senna Plus 8.6-50 mg (Sennosides-Docusate Sodium) 8.6 Mg-50 Mg Tab 1 Tab PO BID Coumadin (Warfarin) 2 Mg Tab 2 Mg PO DAILY Resume and monitor for any signs of bleeding. INR between 2-3 Thera/Beta-Carotene (Multiple Vitamin) 1 Tab Tab 1 Tab PO DAILY Santyl (Collagenase) 250 Unit/Gram Oin 1 Applic TOPICAL DAILY 30 Days Pantoprazole (Pantoprazole Sodium) 40 Mg Tab 40 Mg PO DAILY [place] [facility] Nasal (Sodium Chloride) 0.65% Ol[place] 2 Olanta EACH NARE QID 30 Days Furosemide 20 Mg Tab 20 Mg PO DAILY Flomax (Tamsulosin HCl) 0.4 Mg Cap 0.4 Mg PO HS Spironolactone 50 Mg Tab 50 Mg PO DAILY Simvastatin 20 Mg Tab 20 Mg PO HS Niacin 500 Mg Tab 500 Mg PO DAILY Levothyroxine (Levothyroxine Sodium) 75 Mcg Tab 75 Mcg PO DAILY Calcitriol 0.25 Mcg Cap 0.25 Mcg PO DAILY Amiodarone (Amiodarone HCl) 200 Mg Tab 100 Mg PO DAILY Pantoprazole (Pantoprazole Sodium) 40 Mg Tab 40 Mg PO Q24H 7 Days Senna Plus 8.6-50 mg (Sennosides-Docusate Sodium) 8.6 Mg-50 Mg Tab 2 Tab PO BID 15 Days Eq Milk of Magnesia (Magnesium Hydroxide) 400 Mg/5 Ml Elina 30 Ml PO HS 15 Days Reported Doxycycline Hyclate 100 Mg Cap 100 Mg PO BID Ceftin (Cefuroxime Axetil) 250 Mg Tab 500 Mg PO BID Duoneb (Ipratropium-Albuterol Neb) 0.5-2.5 Mg/3 Ml Neb 1 Nebule INH Q4HR NEB Lasix (Furosemide) 40 Mg Tab 20 Mg PO BID Active Ordered Medications Current Medications Medications (Trade) Dose Ordered Sig/Cecilio Route Start Time Stop Time Status Last Admin Sodium Chloride 1,000 ml @ 75 mls/hr [id number] IV 04/14/17 20:00 Future Hold 04/15/17 09:20 (NS Flush) 2 ml UNSCH PRN IV FLUSH 04/14/17 18:15 (NS Flush) 2 ml BID IV FLUSH 04/14/17 21:00 04/14/17 22:37 (Tylenol) 650 mg Q4H PRN PO 04/14/17 18:15 (Zofran Inj) 4 mg Q6H PRN IVP 04/14/17 18:15 (Narcan Inj) 0.4 mg UNSCH PRN IV PUSH 04/14/17 18:15 (Jodie-Colace) 1 tab BID PO 04/14/17 21:00 04/15/17 09:00 (Milk Of Magnesia Liq) 30 ml Q12H PRN PO 04/14/17 18:15 (Senokot) 17.2 mg Q12H PRN PO 04/14/17 18:15 (Dulcolax Supp) 10 mg DAILY PRN RECTAL 04/14/17 18:15 (Lactulose Liq) 30 ml DAILY PRN PO 04/14/17 18:15 (Cordarone) 100 mg DAILY PO 04/15/17 09:00 04/15/17 10:17 (Rocaltrol) 0.25 mcg DAILY PO 04/15/17 09:00 (Lasix) 20 mg BID PO 04/14/17 21:00 Future Hold 04/14/17 22:37 (Synthroid) 75 mcg DAILY@0600 PO 04/15/17 06:00 ([place]) 2 spray QID EACH NARE 04/14/17 21:00 04/15/17 18:00 (Aldactone) 50 mg DAILY PO 04/15/17 09:00 Future Hold (Flomax) 0.4 mg HS PO 04/14/17 21:00 (Niacin) 500 mg DAILY PO 04/15/17 09:00 (Pravachol) 40 mg HS PO 04/14/17 21:00 04/14/17 22:31 (Duoneb Neb) 1 ampule Q4HR NEB PRN NEB 04/14/17 18:30 04/15/17 18:41 Cefepime HCl 2000 mg/Sodium Chloride 100 ml @ 200 mls/hr Q24H IV 04/15/17 22:00 Azithromycin 500 mg/Sodium Chloride 250 ml @ 250 mls/hr Q24H IV 04/15/17 23:00 04/15/17 05:21 (Protonix Inj) 40 mg DAILY IV PUSH 04/15/17 13:00 Albumin Human 100 ml @ 60 mls/hr Q12H IV 04/15/17 18:00 04/15/17 18:02 Family History unable to obtain Social History Lives with his . Negative for alcohol, tobacco or drugs. Physical Exam Vital Signs Vital Signs Date Time Temp Pulse Resp B/P (MAP) Pulse Ox O2 Delivery O2 Flow Rate FiO2 04/15/17 21:01 97.7 66 24 92/57 (69) 95 04/15/17 18:21 97.0 65 20 98/61 (73) 96 04/15/17 16:34 85 22 81/58 (66) 97 83/57 (66) 04/15/17 13:50 72 20 100/55 (70) 92 04/15/17 12:52 74 04/15/17 12:16 96.4 71 20 84/57 (66) 95 04/15/17 10:45 94.5 70 20 90/58 (69) 95 04/15/17 08:34 71 20 70/29 (43) 91 81/55 (64) 04/15/17 08:12 95 Nasal Cannula 2.00 04/15/17 05:29 72 20 95/59 (71) 97 04/15/17 04:00 71 20 90/62 (71) 04/15/17 02:09 73 20 97/54 (68) 96 04/15/17 00:34 20 95/63 (74) 97 04/15/17 00:11 89.6 72 18 95/66 97 04/15/17 00:00 72 20 95/66 (76) 98 Physical Exam GENERAL: Lethargic, eyes open to call. HEENT: No scleral icterus or conjunctival pallor. CARDIOVASCULAR: Regular rate and rhythm. dual chamber paced rhythm. No obvious murmurs to auscultation. No chest tenderness to palpation. RESPIRATORY: Diminished with obvious rhonchi bilaterally. GASTROINTESTINAL: Abdomen soft, nondistended. BS normal. MUSCULOSKELETAL:multiple ecchymosis. . +1 pitting edema bilaterally. No obvious deformities. Sacral decubitus ulcer, present on admission NEUROLOGICAL:lethargic. Laboratory Laboratory Tests Test 04/14/17 22:59 04/15/17 07:21 04/15/17 18:48 Hemoglobin 8.6 8.6 Hematocrit 25.7 25.0 Lactic Acid Level 1.5 1.3 White Blood Count 8.9 Red Blood Count 2.48 Mean Corpuscular Volume 100.7 Mean Corpuscular Hemoglobin 34.5 Mean Corpuscular Hemoglobin Concent 34.3 Red Cell Distribution Width 17.2 Platelet Count 133 Mean Platelet Volume 9.8 Neutrophils (%) (Auto) 89.5 Lymphocytes (%) (Auto) 3.6 Monocytes (%) (Auto) 6.1 Eosinophils (%) (Auto) 0.5 Basophils (%) (Auto) 0.3 Neutrophils # (Auto) 8.0 Lymphocytes # (Auto) 0.3 Monocytes # (Auto) 0.5 Eosinophils # (Auto) 0.0 Basophils # (Auto) 0.0 CBC Comment DIFF FINAL Differential Comment Prothrombin Time 28.8 Prothromb Time International Ratio 2.5 Blood Urea Nitrogen 88 Creatinine 2.24 Random Glucose 89 Calcium Level 9.2 Sodium Level 138 Potassium Level 5.0 Chloride Level 101 Carbon Dioxide Level 29.0 Anion Gap 8 Estimat Glomerular Filtration Rate 28 Date/Time Source Procedure Growth Status 04/14/17 16:25 Blood Peripheral Aerobic Blood Culture - Preliminary NO GROWTH IN 1 DAY Resulted 04/14/17 16:25 Blood Peripheral Anaerobic Blood Culture - Preliminary NO GROWTH IN 1 DAY Resulted 04/14/17 17:50 Urine Clean Catch Urine Culture - Preliminary NO GROWTH IN 24 HOURS. Resulted Result Diagram: 04/15/1721 04/15/17720 Assessment and Plan Problem List: (1) Supratherapeutic INR ICD Codes: R79.1 - Abnormal coagulation profile Status: Acute Plan: INR 2.5 today. Continue to hold Coumadin. Consider discontinue it. (2) Wynlv-mp-ndalkqu kidney injury ICD Codes: N17.9 - Acute kidney failure, unspecified; N18.9 - Chronic kidney disease, unspecified Plan: Renal consulted. (3) Hematuria ICD Codes: R31.9 - Hematuria, unspecified Status: Resolved (4) Afib ICD Codes: I48.91 - Unspecified atrial fibrillation Status: Chronic Plan: Rate controlled.No Coumadin due to severe hematuria. (5) CHF (congestive heart failure) ICD Codes: I50.9 - Heart failure, unspecified Status: Chronic Plan: No diuretic due to low BP. He is now DNR. Probably conservative treatment. I called and talked to his , comfort care only. No pressors. No transfer to ICU. Problem Qualifiers (1) Azywx-lb-jbmgoou kidney injury: (2) Afib: Qualified Codes: I48.2 - Chronic atrial fibrillation (3) CHF (congestive heart failure): Qualified Codes: I50.33 - Acute on chronic diastolic (congestive) heart failure Wing Jerilyn Mccollum MD Apr 15, 2017 21:31
[2017-04-15] MEDS ORDERED: CEFEPIME INJ 2,000 MG in SODIUM CHLORIDE 0.9% INJ 100 ML IV SCH (22:00)
[2017-04-15] MEDS ORDERED: AZITHROMYCIN INJ 500 MG in SODIUM CHLOR 0.9% 250 ML INJ 250 ML IV SCH (23:00)
[2017-04-16 01:23] VITALS: BP 95/56; PULSE 105; RESP 24; TEMP 96.6; O2SAT 96
[2017-04-16 04:39] VITALS: BP 84/53; PULSE 104; RESP 24; TEMP 97.1; O2SAT 98
[2017-04-16] MEDS: ALBUMIN 25% INJ 100 ML IV SCH (05:32)
[2017-04-16] MEDS: LEVOTHYROXINE SODIUM 75 MCG TAB PO SCH (05:39)
[2017-04-16 08:00] VITALS: PULSE 102
[2017-04-16 08:15] VITALS: BP 86/51; PULSE 103; RESP 16; TEMP 97.4; O2SAT 94
[2017-04-16] MEDS: AMIODARONE 200 MG TAB PO SCH (09:00)
[2017-04-16] MEDS: NIACIN 100 MG TAB PO SCH (09:00)
[2017-04-16] MEDS: DOCUSATE SODIUM 50 MG/SENNA 8.6 MG TAB PO SCH (09:00)
[2017-04-16] MEDS: SODIUM CHLORIDE 0.65% NASAL SPRAY 45 ML BTL EACH NARE SCH (09:00)
[2017-04-16] MEDS: CALCITRIOL 0.25 MCG CAP PO SCH (09:00)
[2017-04-16 09:28] VITALS: O2SAT 94
[2017-04-16] MEDS: PANTOPRAZOLE SODIUM 40 MG VIAL IV PUSH SCH (09:28)
[2017-04-16] MEDS: SODIUM CHLORIDE 0.9% FLUSH 10 ML FLUSH IV FLUSH SCH (09:29)
[2017-04-16 11:41] LABS: AUTOMATED NEUTROPHIL # 8.3 TH/MM3 (1.8-7.7); BASOPHIL % 0.2 % (0.0-2.0); EOSINOPHIL % 0.2 % (0.0-4.0); LYMPH % 5.1 % (9.0-44.0); LYMPHOCYTE # 0.5 TH/MM3 (1.0-4.8); MEAN CELL VOLUME 101.7 FL (80.0-100.0); MEAN CORPUSCULAR HEMOGLOBIN 34.4 PG (27.0-34.0); MEAN CORPUSCULAR HGB CONC 33.8 % (32.0-36.0); MONO % 10.9 % (0.0-8.0); NEUT % 83.6 % (16.0-70.0); PLATELET COUNT 131 TH/MM3 (150-450); RED BLOOD COUNT 2.46 MIL/MM3 (4.50-5.90); RED CELL DISTRIBUTION WIDTH 17.2 % (11.6-17.2)
[2017-04-16 11:47] LABS: HEMO FLAGS AUTO DIFF
--- NOTE | 2017-04-16 11:51 | HHI.NPPN ---
Subjective History of Present Illness 86-year-old male with a past medical history of chronic kidney disease, history of suprapubic catheter, congestive heart failure, atrial fibrillation, history of GI bleeding, chronic obstructive pulmonary disease. He was transferred from the long term because of increased swelling of the leg and decreased urine output with hematuria. I was called to see the patient because of elevated BUN and creatinine. The patient has a history of chronic kidney disease and, according to , he has been following with Dr. Cooper and the last time he was seen by him was in September. Additional Remarks Patient is drowsy and lethargic, has mouth open and closed eyes. Review of Systems General General Remarks not able to take. Objective Data Data 04/16/17 04/17/17 19:00 07:00 Intake Total 100 ml Balance 100 ml IV Total 100 ml Vital Signs Date Time Temp Pulse Resp B/P (MAP) Pulse Ox O2 Delivery O2 Flow Rate FiO2 04/16/17 09:28 94 Nasal Cannula 2.00 04/16/17 08:15 97.4 103 16 86/51 (63) 94 04/16/17 04:39 97.1 104 24 84/53 (63) 98 04/16/17 01:23 96.6 105 24 95/56 (69) 96 04/15/17 21:42 95 Nasal Cannula 2.00 04/15/17 21:01 97.7 66 24 92/57 (69) 95 04/15/17 20:10 77 04/15/17 18:21 97.0 65 20 98/61 (73) 96 04/15/17 16:34 85 22 81/58 (66) 97 83/57 (66) 04/15/17 13:50 72 20 100/55 (70) 92 04/15/17 12:52 74 04/15/17 12:16 96.4 71 20 84/57 (66) 95 -: 04/16/17 1018 04/15/17 0721 Microbiology 04/16/17 Gram Stain - Final, Resulted 04/16/17 Wound Culture, Resulted Pending Physical Exam General Appearance Remarks Lethargic and non verbal. Eyes Eye Exam: Pupils Equal Ears & Nose Ears & Nose Exam: Tympanic Membranes Normal Throat Throat Exam: Oral Mucosa [place] & Moist Neck Neck Exam: Neck Supple Pulmonary Resp Exam: Breath Sounds Equal, Rhonchi, Decreased Bases, Diminished Breath Sounds, Poor Inspiratory Effort Cardiology CV Exam: Regular, Normal Sinus Rhythm Gastrointestinal/Abdomen GI Exam: Soft, Non-Tender, Distended Extremeties Extremities Exam: Moderate Edema, Pitting Edema, Dependent Edema Neurologic Neuro Exam: Obtunded, Unresponsive Assessment/Plan Assessment Summary: HAYDE/Acute Renal Failure, Hypotension Electrolyte Assessment: Hyperkalemia Problem List: (1) Hypotension ICD Codes: I95.9 - Hypotension, unspecified (2) Sacral decubitus ulcer ICD Codes: L89.159 - Pressure ulcer of sacral region, unspecified stage (3) Afib ICD Codes: I48.91 - Unspecified atrial fibrillation Status: Chronic (4) PNA (pneumonia) ICD Codes: J18.9 - Pneumonia, unspecified organism (5) COPD (chronic obstructive pulmonary disease) ICD Codes: J44.9 - Chronic obstructive pulmonary disease, unspecified Status: Chronic (6) Dyspnea ICD Codes: R06.00 - Dyspnea, unspecified (7) CHF (congestive heart failure) ICD Codes: I50.9 - Heart failure, unspecified Status: Chronic (8) Dlsrg-mo-jwcizlf kidney injury ICD Codes: N17.9 - Acute kidney failure, unspecified; N18.9 - Chronic kidney disease, unspecified Plan Patient has low urine out put. Creatinine increase. BP is still on lower side. No CODE. Discuss with and son, they want to go for Hospice. Patient has been seen by Palliative care. I will sign off from Nephrology. Problem Qualifiers (1) Afib: Qualified Codes: I48.2 - Chronic atrial fibrillation (2) CHF (congestive heart failure): Qualified Codes: I50.33 - Acute on chronic diastolic (congestive) heart failure (3) Gamnh-tu-xyuwgsv kidney injury: Duc Angulo MD Apr 16, 2017 11:51
[2017-04-16 12:15] LABS: ALKALINE PHOSPHATASE 202 U/L (45-117); ALT (GPT) 198 U/L (12-78); ANION GAP 9 MEQ/L (5-15); AST (GOT) 328 U/L (15-37); BICARBONATE 27.1 MEQ/L (21.0-32.0); BLOOD UREA NITROGEN 102 MG/DL (7-18); CHLORIDE 102 MEQ/L (98-107); GLOMERULAR FILTRATION RATE 18 ML/MIN (>89); POTASSIUM 5.4 MEQ/L (3.5-5.1); SODIUM (NA) 138 MEQ/L (136-145); TOTAL BILIRUBIN ADULT 1.2 MG/DL (0.2-1.0)
[2017-04-16 12:56] LABS: BANDS 2 % (0-6); METAMYELOCYTES 1 % (0-1); MYELOCYTES 6 % (0-0); NEUTROPHIL # MANUAL DIFF 8.5 TH/MM3 (1.8-7.7); POLYS (SEG NEUTROPHILS) 76 % (16-70); WBC DIFF SAMPLE 100
[2017-04-16 12:57] LABS: PLATELET ESTIMATE SMEAR LOW (NORMAL); PLATELET MORPHOLOGY NORMAL (NORMAL); SCAN/DIFF FINAL DIFF MANUAL
[2017-04-16 12:58] LABS: OVALOCYTES 1+ (NORMAL)
--- NOTE | 2017-04-16 13:12 | PQ ---
Physician Query Response Document PATIENT: ANTHONY REYES : [id number] ADMIT DATE: 04/14/2017 6:08 PM DISCH DATE: 04/16/2017 12:45 PM RESPONDING PROVIDER #: [email or web address] QUERY TEXT: CHF Acuity and Type Congestive Heart Failure is documented in the Medical Record. Please document the type and acuity (includes probable or suspected) - THERE IS CONFLICTING INFORM ATION BETWEEN ATTENDING MD AND RETURNS PROCESSOR Such as: Type: -- Systolic -- Diastolic -- Combined -- Other, please specify Acuity: -- Acute -- Chronic -- Acute on chronic -- Other, please specify Also please document the underlying cause of the CHF (includes probable or suspected) The patient's Clinical Indicators include: 04/14/17 Admission Diagnosis - supratherapeutic INR, gross hematuria, HAYDE, GI bleed PER 04/15/17 PROGRESS NOTE - Acute exacerbation of chronic systolic congestive heart failure: 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 PER 04/15/17 CARDIOLOGY CONSULT NOTE - CHF (congestive heart failure) ICD Codes: I50.9 - Heart failure, unspecified Status: Chronic Plan: No diuretic due to low BP. Problem Qualifiers CHF (congestive heart failure): Qualified Codes: I50.33 - Acute on chronic diastolic (congestive) heart failure Query created by: Danielle Rasheed on 04/16/2017 12:52 PM RESPONSE TEXT: Clarification: Per Cardiology, patient has acute on chronic DIASTOLIC congestive heart failure. Electronically signed by: Campbell Talbot MD 04/16/2017 1:08 PM
--- NOTE | 2017-04-19 17:18 | HHI.DS ---
Summary Note Date of : Apr 16, 2017 Time Of : 10:45 Admission Date Apr 14, 2017 at 18:08 Admitting Diagnosis supratherapeutic INR, gross hematuria, HAYDE, GI bleed Diagnosis at Time of : (1) GI bleed ICD Code: K92.2 - Gastrointestinal hemorrhage, unspecified (2) Hypotension ICD Code: I95.9 - Hypotension, unspecified (3) Supratherapeutic INR ICD Code: R79.1 - Abnormal coagulation profile (4) Thrombocytopenia ICD Code: D69.6 - Thrombocytopenia, unspecified (5) HAYDE (acute kidney injury) ICD Code: N17.9 - Acute kidney failure, unspecified (6) Lactic acidosis ICD Code: E87.2 - Acidosis (7) PNA (pneumonia) ICD Code: J18.9 - Pneumonia, unspecified organism (8) Afib ICD Code: I48.91 - Unspecified atrial fibrillation (9) CHF (congestive heart failure) ICD Code: I50.9 - Heart failure, unspecified (10) Sacral decubitus ulcer ICD Code: L89.159 - Pressure ulcer of sacral region, unspecified stage Procedures None Brief History This is an 76-year-old male with PMH of HTN, CAD, A. fib on Coumadin and COPD who was sent to ER from [facility] for evaluation of LE edema and hematuria through Fischer. Pt very poor historian, unable to provide details of condition, however has no complaints. Recently at [facility] 03/15-03/31/17 after admit for fall w/ Right Acetabular Fx, Right Rib Fx and Intrapelvic Retroperitoneal Hematoma, s/p eval by Dr. Sherman w/ non-operative management, s/ p eval by Dr. Hairston, Echo 03/11/17 w/ EF 50-55%, continued on Lasix and Aldactone for anasarca, Coumadin on hold secondary to pelvic hematoma, however Coumadin resumed at the time of d/c as bleeding controlled and Hgb stable. Episode of urinary retention/hematuria during visit, s/p Fischer placement and removal at the time of d/c, unclear when Fischer re-inserted. On arrival to ER, BP 99/67, HR 72, O2 sat 99% on 2L NC, Afebrile. Hemoglobin 8.7, previously 9.4 on 03/29/17. Platelets 147, previously 419 on 03/29/17. Creatinine 2.24, producing 1.27 on 03/26/17. Lactic Acid 2.2. BNP 129. INR 6.4. UA pending. CXR w/ development of mild left lower lobe airspace disease, possibly effusion versus early pneumonia. S/p Zithro/Cefepime in ER in addition to 2u FFP and Vitamin K. Hemoccult + on exam. Consult for GI placed. CBC/BMP: 04/16/17 1018 04/16/17 1018 Imaging Last Impressions Chest X-Ray 04/15/17 0000 Signed Impressions: Service Date/Time: March 14:05 - CONCLUSION: Cardiomegaly with bilateral pleural effusions and bibasilar infiltrates. Radiographic pattern suggestive of pulmonary edema. Bandar Santana Jr., MD Abdomen/Pelvis CT 04/14/17 1606 Signed Impressions: Service Date/Time: Friday, April 14, 2017 17:22 - CONCLUSION: No acute intra-abdominal process is identified. Axel Lazo MD Hospital Course Patient was admitted for further evaluation and management of GI bleed. INR was supratherapeutic. He was given FFP and vitamin K. H&H were monitored. Gastroenterology was consulted. He was not felt to be stable for endoscopic evaluation and his family did not wish to pursue further invasive testing. Blood pressure remained low. Patient had acute renal failure. Nephrology and cardiology were consulted. Palliative care was consulted. Patient's CODE STATUS was changed to DO NOT RESUSCITATE. His family indicated their wishes for him to have comfort measures rather than further aggressive treatment with invasive interventions. The patient at 10:45 AM. Campbell Talbot MD Apr 19, 2017 17:18
== END 2017-04-16 12:45 | disposition expired | DRG 377 ==
LOC: NEPC 15:49 → NEDA 18:08 → N06A 19:18 → NEDA 19:23 → N05B 20:58
PROVIDERS: ADMIT Family Medicine; ATTEND Family Medicine
PROC: 30233K1 Transfusion of Nonautologous Frozen Plasma into Peripheral Vein, Percutaneous Approach (ICD-10-PCS; principal; 2017-04-14)
DX: K92.1 Melena (principal); J18.9 Pneumonia, unspecified organism; N17.0 Acute kidney failure with tubular necrosis; L89.154 Pressure ulcer of sacral region, stage 4; I50.33 Acute on chronic diastolic (congestive) heart failure; E46 Unspecified protein-calorie malnutrition; I13.0 Hypertensive heart and chronic kidney disease with heart failure and stage 1 through stage 4 chronic kidney disease, or unspecified chronic kidney disease; J44.0 Chronic obstructive pulmonary disease with (acute) lower respiratory infection; D68.8 Other specified coagulation defects; E87.2 Acidosis; N39.0 Urinary tract infection, site not specified; D69.6 Thrombocytopenia, unspecified; I95.9 Hypotension, unspecified; I48.2 Chronic atrial fibrillation; N18.3 Chronic kidney disease, stage 3 (moderate); R31.0 Gross hematuria; H91.90 Unspecified hearing loss, unspecified ear; I25.10 Atherosclerotic heart disease of native coronary artery without angina pectoris; I25.5 Ischemic cardiomyopathy; Z66 Do not resuscitate; D64.9 Anemia, unspecified; E03.9 Hypothyroidism, unspecified; E78.5 Hyperlipidemia, unspecified; E86.1 Hypovolemia; T45.515A Adverse effect of anticoagulants, initial encounter; E87.5 Hyperkalemia; K59.00 Constipation, unspecified; Z51.5 Encounter for palliative care; Z85.46 Personal history of malignant neoplasm of prostate; Z92.21 Personal history of antineoplastic chemotherapy; Z95.0 Presence of cardiac pacemaker; Z79.01 Long term (current) use of anticoagulants; Z93.6 Other artificial openings of urinary tract status
CPT/HCPCS: 36430; 71010; 74176; 80048; 80053; 81001; 83605; 83735; 83880; 83935; 84300; 85007; 85014; 85018; 85025; 85027; 85610; 85730; 86850; 86900; 86901; 86927; 87040; 87070; 87086; 87205; 93005; 94664; 96372; 96374; C9113; J0456; J0692; J3430; J7030; J7040; J7050; P9017; P9047